=== PATIENT | male | born 1940 | race Caucasian/White ===

== ENCOUNTER 2017-07-13 11:30 | Outpatient (RCR) | payer MEDICARE, SELFPAY | END 2017-07-13 12:30 | LOC: CAR 11:30 | PROVIDERS: Family Provider Internal Medicine; PCP Internal Medicine; Visit Provider Internal Medicine Cardiovascular Disease | DX: Z95.2 Presence of prosthetic heart valve (principal) | CPT/HCPCS: 93798 ==

== ENCOUNTER → 2017-07-31 12:40 | Outpatient (CLI) | payer MEDICARE, SELFPAY ==
[2017-07-18 11:37] VITALS: BMI 28.7
[2017-07-31 13:24] LABS: Add Manual Diff / Slide Review NO; Basophils Percent Auto 0.2 % (0-2); Eosinophils Percent Auto 0.2 % (2-4); Hematocrit 34.2 % (41-53); Hemoglobin 11.4 g/dL (13.5-17.5); Lymphocytes Percent Auto 2.6 % (25-40); Mean Corpuscular HGB Conc 33.2 % (30-36); Mean Corpuscular Hemoglobin 33.4 PG (26-34); Mean Corpuscular Volume 100.9 fL (80-100); Monocytes Percent Auto 4.5 % (3-14); Neutrophils Absolute Auto 11000 /uL (3000-5900); Neutrophils Percent Auto 92.5 % (50-75); Platelet Count 188 X10^3/uL (150-400); Red Cell Distribution Width 15.7 % (11.6-14.8); White Blood Cell Count 11.9 X10^3/uL (4.5-11.0)
[2017-07-31 14:06] LABS: Alanine Aminotransferase 26 IU/L (21-72); Albumin Globulin Ratio 1.7 (1.0-2.8); Alkaline Phosphatase 56 U/L (38-126); Aspartate Aminotransferase 17 IU/L (17-59); BUN Creatinine Ratio 19.2 (6-22); Bilirubin Total 0.9 mg/dL (0.2-1.3); Blood Urea Nitrogen 25 mg/dL (9-20); Carbon Dioxide 27 mmol/L (22-32); Chloride 97 mmol/L (98-107); Estimated Glomerular Filt Rate 53.4 mL/min (>60); Globulin 2.4 g/dL (1.7-4.1); Glucose 95 mg/dL (80-110); HEMOLYSIS < 15 (0-50); Potassium 4.1 mmol/L (3.4-5.1); Sodium 138 mmol/L (137-145); Total Protein 6.4 g/dL (6.3-8.2)
== END ==
PROVIDERS: PCP Internal Medicine; Visit Provider Internal Medicine Critical Care Medicine
DX: J84.9 Interstitial pulmonary disease, unspecified (principal)
CPT/HCPCS: 36415; 80053; 85025

== ENCOUNTER → 2017-08-28 12:49 | Outpatient (CLI) | payer MEDICARE, SELFPAY ==
[2017-07-18 11:37] VITALS: BMI 28.7
[2017-08-28 13:18] LABS: Add Manual Diff / Slide Review NO; Basophils Percent Auto 0.2 % (0-2); Eosinophils Percent Auto 0.3 % (2-4); Hematocrit 36.5 % (41-53); Hemoglobin 11.9 g/dL (13.5-17.5); Lymphocytes Percent Auto 2.6 % (25-40); Mean Corpuscular HGB Conc 32.6 % (30-36); Mean Corpuscular Hemoglobin 33.1 PG (26-34); Mean Corpuscular Volume 101.6 fL (80-100); Monocytes Percent Auto 4.7 % (3-14); Neutrophils Absolute Auto 12100 /uL (3000-5900); Neutrophils Percent Auto 92.2 % (50-75); Platelet Count 197 X10^3/uL (150-400); Red Blood Cell Count 3.59 X10^6/uL (4.5-5.9); Red Cell Distribution Width 14.5 % (11.6-14.8); White Blood Cell Count 13.2 X10^3/uL (4.5-11.0)
== END ==
PROVIDERS: PCP Internal Medicine; Visit Provider Internal Medicine Critical Care Medicine
DX: J84.9 Interstitial pulmonary disease, unspecified (principal)
CPT/HCPCS: 36415; 85025

== ENCOUNTER → 2017-10-02 12:51 | Outpatient (CLI) | payer MEDICARE, SELFPAY ==
[2017-07-18 11:37] VITALS: BMI 28.7
[2017-10-02 14:54] LABS: Add Manual Diff / Slide Review NO; Basophils Percent Auto 0.1 % (0-2); Eosinophils Percent Auto 0.2 % (2-4); Hematocrit 37.1 % (41-53); Hemoglobin 12.2 g/dL (13.5-17.5); Lymphocytes Percent Auto 2.3 % (25-40); Mean Corpuscular HGB Conc 32.8 % (30-36); Mean Corpuscular Hemoglobin 32.7 PG (26-34); Mean Corpuscular Volume 99.6 fL (80-100); Monocytes Percent Auto 3.2 % (3-14); Neutrophils Absolute Auto 10900 /uL (3000-5900); Neutrophils Percent Auto 94.2 % (50-75); Platelet Count 191 X10^3/uL (150-400); Red Blood Cell Count 3.72 X10^6/uL (4.5-5.9); Red Cell Distribution Width 14.1 % (11.6-14.8); White Blood Cell Count 11.6 X10^3/uL (4.5-11.0)
== END ==
PROVIDERS: Family Provider Internal Medicine; PCP Internal Medicine
DX: J84.9 Interstitial pulmonary disease, unspecified (principal)
CPT/HCPCS: 36415; 85025

== ENCOUNTER → 2017-10-31 10:05 | Outpatient (CLI) | payer MEDICARE, SELFPAY ==
[2017-07-18 11:37] VITALS: BMI 28.7
[2017-10-31 10:53] LABS: Add Manual Diff / Slide Review NO; Basophils Percent Auto 0.3 % (0-2); Eosinophils Percent Auto 0.6 % (2-4); Hematocrit 35.9 % (41-53); Lymphocytes Percent Auto 5.1 % (25-40); Mean Corpuscular HGB Conc 33.4 % (30-36); Mean Corpuscular Hemoglobin 33.1 PG (26-34); Mean Corpuscular Volume 99.2 fL (80-100); Monocytes Percent Auto 7.8 % (3-14); Neutrophils Absolute Auto 9100 /uL (3000-5900); Neutrophils Percent Auto 86.2 % (50-75); Platelet Count 194 X10^3/uL (150-400); Red Blood Cell Count 3.62 X10^6/uL (4.5-5.9); Red Cell Distribution Width 14.5 % (11.6-14.8); White Blood Cell Count 10.5 X10^3/uL (4.5-11.0)
[2017-10-31 11:39] LABS: Alanine Aminotransferase 20 IU/L (21-72); Albumin 3.9 g/dL (3.5-5.0); Albumin Globulin Ratio 1.8 (1.0-2.8); Alkaline Phosphatase 50 U/L (38-126); Aspartate Aminotransferase 17 IU/L (17-59); BUN Creatinine Ratio 18.2 (6-22); Bilirubin Total 0.7 mg/dL (0.2-1.3); Blood Urea Nitrogen 31 mg/dL (9-20); Calcium 9.7 mg/dL (8.4-10.2); Carbon Dioxide 32 mmol/L (22-32); Chloride 102 mmol/L (98-107); Estimated Glomerular Filt Rate 39.2 mL/min (>60); Globulin 2.2 g/dL (1.7-4.1); Glucose 96 mg/dL (80-110); HEMOLYSIS < 15 (0-50); Potassium 4.4 mmol/L (3.4-5.1); Sodium 145 mmol/L (137-145); Total Protein 6.1 g/dL (6.3-8.2)
== END ==
PROVIDERS: Family Provider Internal Medicine; PCP Internal Medicine; Visit Provider Internal Medicine Critical Care Medicine
DX: J84.9 Interstitial pulmonary disease, unspecified (principal)
CPT/HCPCS: 36415; 80053; 85025

== ENCOUNTER → 2018-01-02 12:46 | Outpatient (CLI) | payer MEDICARE, SELFPAY ==
[2017-07-18 11:37] VITALS: BMI 28.7
[2018-01-02 14:30] LABS: Add Manual Diff / Slide Review NO; Basophils Percent Auto 0.4 % (0-2); Eosinophils Percent Auto 0.5 % (2-4); Hematocrit 37.8 % (41-53); Hemoglobin 12.3 g/dL (13.5-17.5); Lymphocytes Percent Auto 4.5 % (25-40); Mean Corpuscular HGB Conc 32.5 % (30-36); Mean Corpuscular Hemoglobin 32.3 PG (26-34); Mean Corpuscular Volume 99.4 fL (80-100); Monocytes Percent Auto 5.1 % (3-14); Neutrophils Absolute Auto 12000 /uL (3000-5900); Neutrophils Percent Auto 89.5 % (50-75); Platelet Count 192 X10^3/uL (150-400); Red Cell Distribution Width 14.8 % (11.6-14.8); White Blood Cell Count 13.4 X10^3/uL (4.5-11.0)
== END ==
PROVIDERS: Family Provider Internal Medicine; PCP Internal Medicine; Visit Provider Internal Medicine Critical Care Medicine
DX: J84.9 Interstitial pulmonary disease, unspecified (principal)
CPT/HCPCS: 36415; 85025

== ENCOUNTER → 2018-02-12 12:59 | Outpatient (CLI) | payer MEDICARE, SELFPAY ==
[2017-07-18 11:37] VITALS: BMI 28.7
[2018-02-12 13:26] LABS: Add Manual Diff / Slide Review NO; Basophils Percent Auto 0.3 % (0-2); Eosinophils Percent Auto 0.3 % (2-4); Hematocrit 37.5 % (41-53); Lymphocytes Percent Auto 5.3 % (25-40); Mean Corpuscular HGB Conc 32.1 % (30-36); Mean Corpuscular Hemoglobin 31.5 PG (26-34); Mean Corpuscular Volume 97.9 fL (80-100); Monocytes Percent Auto 3.2 % (3-14); Neutrophils Absolute Auto 10500 /uL (1500-7000); Neutrophils Percent Auto 90.9 % (50-75); Platelet Count 194 X10^3/uL (150-400); Red Blood Cell Count 3.83 X10^6/uL (4.5-5.9); Red Cell Distribution Width 14.8 % (11.6-14.8); White Blood Cell Count 11.6 X10^3/uL (4.5-11.0)
[2018-02-12 13:41] LABS: Alanine Aminotransferase 19 IU/L (21-72); Albumin 4.1 g/dL (3.5-5.0); Albumin Globulin Ratio 1.6 (1.0-2.8); Alkaline Phosphatase 48 U/L (38-126); Aspartate Aminotransferase 16 IU/L (17-59); BUN Creatinine Ratio 17.9 (6-22); Bilirubin Total 0.7 mg/dL (0.2-1.3); Blood Urea Nitrogen 25 mg/dL (9-20); Calcium 9.5 mg/dL (8.4-10.2); Carbon Dioxide 29 mmol/L (22-32); Chloride 101 mmol/L (98-107); Globulin 2.5 g/dL (1.7-4.1); Glucose 128 mg/dL (80-110); HEMOLYSIS < 15 (0-50); Potassium 3.9 mmol/L (3.4-5.1); Sodium 145 mmol/L (137-145); Total Protein 6.6 g/dL (6.3-8.2)
== END ==
PROVIDERS: PCP Internal Medicine; Visit Provider Internal Medicine Critical Care Medicine
DX: J84.9 Interstitial pulmonary disease, unspecified (principal)
CPT/HCPCS: 36415; 80053; 85025

== ENCOUNTER → 2018-02-26 14:31 | Outpatient (CLI) | payer MEDICARE, SELFPAY ==
[2017-07-18 11:37] VITALS: BMI 28.7
[2018-02-26 15:27] LABS: B Type Natriuretic Peptide 213 (<100)
[2018-02-26 15:51] LABS: BUN Creatinine Ratio 17.9 (6-22); Blood Urea Nitrogen 25 mg/dL (9-20); Calcium 10.1 mg/dL (8.4-10.2); Carbon Dioxide 28 mmol/L (22-32); Chloride 101 mmol/L (98-107); Glucose 125 mg/dL (80-110); HEMOLYSIS < 15 (0-50); Potassium 4.7 mmol/L (3.4-5.1); Sodium 141 mmol/L (137-145)
== END ==
PROVIDERS: Family Provider Internal Medicine; PCP Internal Medicine; Visit Provider Internal Medicine
DX: B02.23 Postherpetic polyneuropathy (principal); J84.10 Pulmonary fibrosis, unspecified; R06.09 Other forms of dyspnea
CPT/HCPCS: 36415; 80048; 83880

== ENCOUNTER → 2018-03-09 08:29 | Outpatient (CLI) | payer MEDICARE, SELFPAY ==
[2017-07-18 11:37] VITALS: BMI 28.7
--- NOTE | 2018-03-09 | DI.CT.S_ITS ---
PROCEDURE: CT CHEST HIGH RESOLUTION INDICATIONS: History of interstitial lung disease with worsening hypoxia. TECHNIQUE: Noncontrast 1.0 and 5.0 mm thick contiguous axial sections from the pulmonary apex to the posterior costophrenic angles, with 7 mm thick coronal and sagittal MIP reformats. 1 mm thick dynamic expiratory images acquired through the upper, mid, and lower lungs. 1.0 mm thick axial sections acquired from the americo to the posterior costophrenic angles in the prone end-inspiration position. For radiation dose reduction, the following was used: automated exposure control, adjustment of mA and/or kV according to patient size. COMPARISON: [facility], CT, CHEST HIGH RESOLUTION, 05/18/2015, 8:45. FINDINGS: Image quality: Excellent. Lungs: There is bilateral septal thickening with a subpleural predominance. Traction bronchiectasis and honeycombing are also redemonstrated. The findings again demonstrate a basilar predominance. There is mild interval progression compared to the prior study. The indistinct ground glass opacities seen on the prior study are decreased in prominence on the current study. No acute consolidation. Dynamic images demonstrate no evidence of air trapping. Pleura: No pleural effusions or pneumothorax. There are multiple small peripheral foci of pleural calcifications without confluent pleural plaques. Mediastinum: There is a left chest wall AICD with a single lead extending into the right ventricle. Heart size is at the upper limits of normal. A prosthetic aortic valve is redemonstrated. No pericardial effusion. Thoracic aorta and central pulmonary arteries are normal in size. There is mild fluid distention of the mid and distal esophagus. Bones and chest wall: No suspicious bony lesions. No vertebral body compression fractures. Abdomen: Visualized upper abdomen demonstrates surgical absence of the bladder. IMPRESSION: 1. Chronic interstitial lung disease redemonstrated with bilateral subpleural septal thickening, traction bronchiectasis, and honeycombing with a basilar predominance. Findings are again compatible with a UIP pattern and demonstrate interval progression compared to the prior study. The differential etiologies for this pattern is broad and includes IPF, connective tissue disease, asbestosis, hypersensitivity pneumonitis, and drug reaction among other etiologies. 2. Mild distention of the mid and distal esophagus redemonstrated suggestive of a patulous esophagus. The findings likely reflect age related changes. Although the differential includes scleroderma, this is considered less likely given the mild degree of dilatation. 3. Small foci of pleural calcifications demonstrated bilaterally. The findings may represent sequelae of asbestos exposure although no typical confluent pleural plaques are noted. Differential includes sequelae of prior infection or inflammatory changes. Recommend correlation with clinical history. Dictated by: Gil Olguin M.D. on 03/09/2018 at 10:42 Approved by: Gil Olguin M.D. on 03/09/2018 at 11:12
== END ==
PROVIDERS: Family Provider Internal Medicine; PCP Internal Medicine; Visit Provider Internal Medicine Critical Care Medicine
DX: J84.9 Interstitial pulmonary disease, unspecified (principal); J94.8 Other specified pleural conditions; R09.02 Hypoxemia
CPT/HCPCS: 71250

== ENCOUNTER → 2018-05-09 11:28 | Outpatient (CLI) | payer MEDICARE, SELFPAY ==
[2017-07-18 11:37] VITALS: BMI 28.7
[2018-05-09 13:36] LABS: Add Manual Diff / Slide Review NO; Basophils Absolute Auto 0 /uL (0-100); Basophils Percent Auto 0.2 % (0-2); Eosinophils Absolute Auto 0 /uL (0-450); Eosinophils Percent Auto 0.3 % (2-4); Hematocrit 34.9 % (41-53); Hemoglobin 11.3 g/dL (13.5-17.5); Lymphocytes Absolute Auto 400 /uL (1100-4500); Lymphocytes Percent Auto 3.2 % (25-40); Mean Corpuscular HGB Conc 32.4 % (30-36); Mean Corpuscular Hemoglobin 31.7 PG (26-34); Mean Corpuscular Volume 97.7 fL (80-100); Monocytes Absolute Auto 500 /uL (0-900); Neutrophils Absolute Auto 11400 /uL (1500-7000); Neutrophils Percent Auto 92.3 % (50-75); Platelet Count 202 X10^3/uL (150-400); Red Blood Cell Count 3.57 X10^6/uL (4.5-5.9); White Blood Cell Count 12.3 X10^3/uL (4.5-11.0)
[2018-05-09 13:40] LABS: Alanine Aminotransferase 23 IU/L (21-72); Albumin Globulin Ratio 1.7 (1.0-2.8); Alkaline Phosphatase 45 U/L (38-126); Aspartate Aminotransferase 18 IU/L (17-59); BUN Creatinine Ratio 19.3 (6-22); Bilirubin Total 0.8 mg/dL (0.2-1.3); Blood Urea Nitrogen 27 mg/dL (9-20); Calcium 9.7 mg/dL (8.4-10.2); Carbon Dioxide 31 mmol/L (22-32); Chloride 100 mmol/L (98-107); Estimated Glomerular Filt Rate 48.9 mL/min (>60); Globulin 2.4 g/dL (1.7-4.1); Glucose 102 mg/dL (80-110); HEMOLYSIS < 15 (0-50); Potassium 4.2 mmol/L (3.4-5.1); Sodium 141 mmol/L (137-145); Total Protein 6.4 g/dL (6.3-8.2)
== END ==
PROVIDERS: Family Provider Internal Medicine; PCP Internal Medicine; Visit Provider Internal Medicine Critical Care Medicine
DX: J84.9 Interstitial pulmonary disease, unspecified (principal)
CPT/HCPCS: 36415; 80053; 85025

== ENCOUNTER → 2018-06-14 11:18 | Outpatient (CLI) | payer MEDICARE, SELFPAY ==
[2017-07-18 11:37] VITALS: BMI 28.7
[2018-06-14 12:00] LABS: Add Manual Diff / Slide Review NO; Basophils Absolute Auto 100 /uL (0-100); Basophils Percent Auto 0.5 % (0-2); Eosinophils Absolute Auto 100 /uL (0-450); Eosinophils Percent Auto 0.6 % (2-4); Hematocrit 35.1 % (41-53); Hemoglobin 11.1 g/dL (13.5-17.5); Lymphocytes Absolute Auto 400 /uL (1100-4500); Lymphocytes Percent Auto 3.3 % (25-40); Mean Corpuscular HGB Conc 31.7 % (30-36); Mean Corpuscular Hemoglobin 31.5 PG (26-34); Mean Corpuscular Volume 99.6 fL (80-100); Monocytes Absolute Auto 800 /uL (0-900); Monocytes Percent Auto 6.3 % (3-14); Neutrophils Absolute Auto 11700 /uL (1500-7000); Neutrophils Percent Auto 89.3 % (50-75); Red Blood Cell Count 3.53 X10^6/uL (4.5-5.9); Red Cell Distribution Width 15.3 % (11.6-14.8); White Blood Cell Count 13.1 X10^3/uL (4.5-11.0)
[2018-06-14 12:25] LABS: Alanine Aminotransferase 13 IU/L (21-72); Albumin 3.7 g/dL (3.5-5.0); Albumin Globulin Ratio 1.7 (1.0-2.8); Alkaline Phosphatase 41 U/L (38-126); Aspartate Aminotransferase 22 IU/L (17-59); BUN Creatinine Ratio 21.7 (6-22); Bilirubin Total 0.7 mg/dL (0.2-1.3); Blood Urea Nitrogen 26 mg/dL (9-20); Calcium 9.6 mg/dL (8.4-10.2); Carbon Dioxide 29 mmol/L (22-32); Chloride 101 mmol/L (98-107); Estimated Glomerular Filt Rate 58.4 mL/min (>60); Globulin 2.2 g/dL (1.7-4.1); Glucose 82 mg/dL (80-110); HEMOLYSIS 15 (0-50); Potassium 3.9 mmol/L (3.4-5.1); Sodium 139 mmol/L (137-145); Total Protein 5.9 g/dL (6.3-8.2)
[2018-06-14 12:28] LABS: Platelet Count 169 X10^3/uL (150-400)
== END ==
PROVIDERS: Family Provider Internal Medicine; PCP Internal Medicine; Visit Provider Internal Medicine Critical Care Medicine
DX: J84.9 Interstitial pulmonary disease, unspecified (principal)
CPT/HCPCS: 36415; 80053; 85025

== ENCOUNTER → 2018-07-19 13:23 | Outpatient (CLI) | payer MEDICARE, SELFPAY ==
[2017-07-18 11:37] VITALS: BMI 28.7
[2018-07-19 13:47] LABS: Add Manual Diff / Slide Review NO; Basophils Absolute Auto 0 /uL (0-100); Basophils Percent Auto 0.2 % (0-2); Eosinophils Absolute Auto 0 /uL (0-450); Eosinophils Percent Auto 0.2 % (2-4); Hematocrit 36.7 % (41-53); Hemoglobin 11.5 g/dL (13.5-17.5); Lymphocytes Absolute Auto 500 /uL (1100-4500); Lymphocytes Percent Auto 3.6 % (25-40); Mean Corpuscular HGB Conc 31.4 % (30-36); Mean Corpuscular Hemoglobin 31.6 PG (26-34); Mean Corpuscular Volume 100.6 fL (80-100); Monocytes Absolute Auto 500 /uL (0-900); Neutrophils Absolute Auto 12300 /uL (1500-7000); Platelet Count 212 X10^3/uL (150-400); Red Blood Cell Count 3.65 X10^6/uL (4.5-5.9); Red Cell Distribution Width 15.2 % (11.6-14.8); White Blood Cell Count 13.3 X10^3/uL (4.5-11.0)
[2018-07-19 14:54] LABS: Alanine Aminotransferase 12 IU/L (21-72); Albumin Globulin Ratio 1.8 (1.0-2.8); Alkaline Phosphatase 55 U/L (38-126); Aspartate Aminotransferase 16 IU/L (17-59); BUN Creatinine Ratio 17.5 (6-22); Bilirubin Total 0.7 mg/dL (0.2-1.3); Blood Urea Nitrogen 21 mg/dL (9-20); Calcium 9.8 mg/dL (8.4-10.2); Carbon Dioxide 31 mmol/L (22-32); Chloride 100 mmol/L (98-107); Estimated Glomerular Filt Rate 58.4 mL/min (>60); Globulin 2.2 g/dL (1.7-4.1); Glucose 85 mg/dL (80-110); HEMOLYSIS < 15 (0-50); Potassium 4.5 mmol/L (3.4-5.1); Sodium 140 mmol/L (137-145); Total Protein 6.2 g/dL (6.3-8.2)
== END ==
PROVIDERS: PCP Internal Medicine; Visit Provider Internal Medicine Critical Care Medicine
DX: J84.9 Interstitial pulmonary disease, unspecified (principal)
CPT/HCPCS: 36415; 80053; 85025

== ENCOUNTER → 2018-08-20 13:33 | Outpatient (CLI) | payer MEDICARE, SELFPAY ==
[2017-07-18 11:37] VITALS: BMI 28.7
[2018-08-20 14:53] LABS: Add Manual Diff / Slide Review NO; Basophils Absolute Auto 0 /uL (0-100); Basophils Percent Auto 0.1 % (0-2); Eosinophils Absolute Auto 0 /uL (0-450); Hematocrit 35.8 % (41-53); Hemoglobin 11.7 g/dL (13.5-17.5); Lymphocytes Absolute Auto 400 /uL (1100-4500); Lymphocytes Percent Auto 3.3 % (25-40); Mean Corpuscular HGB Conc 32.8 % (30-36); Mean Corpuscular Hemoglobin 32.6 PG (26-34); Mean Corpuscular Volume 99.5 fL (80-100); Monocytes Absolute Auto 400 /uL (0-900); Monocytes Percent Auto 3.2 % (3-14); Neutrophils Absolute Auto 12600 /uL (1500-7000); Neutrophils Percent Auto 93.4 % (50-75); Platelet Count 217 X10^3/uL (150-400); Red Cell Distribution Width 15.8 % (11.6-14.8); White Blood Cell Count 13.5 X10^3/uL (4.5-11.0)
[2018-08-20 15:21] LABS: Alanine Aminotransferase 9 IU/L (21-72); Albumin Globulin Ratio 1.7 (1.0-2.8); Alkaline Phosphatase 54 U/L (38-126); Aspartate Aminotransferase 17 IU/L (17-59); BUN Creatinine Ratio 21.5 (6-22); Bilirubin Total 0.7 mg/dL (0.2-1.3); Blood Urea Nitrogen 28 mg/dL (9-20); Calcium 9.8 mg/dL (8.4-10.2); Carbon Dioxide 29 mmol/L (22-32); Chloride 104 mmol/L (98-107); Estimated Glomerular Filt Rate 53.3 mL/min (>60); Globulin 2.3 g/dL (1.7-4.1); Glucose 105 mg/dL (80-110); HEMOLYSIS < 15 (0-50); Sodium 143 mmol/L (137-145); Total Protein 6.3 g/dL (6.3-8.2)
== END ==
PROVIDERS: PCP Internal Medicine; Visit Provider Internal Medicine Critical Care Medicine
DX: J84.9 Interstitial pulmonary disease, unspecified (principal)
CPT/HCPCS: 36415; 80053; 85025

== ENCOUNTER → 2018-11-05 12:50 | Outpatient (CLI) | payer MEDICARE, SELFPAY ==
[2017-07-18 11:37] VITALS: BMI 28.7
[2018-11-05 13:52] LABS: Add Manual Diff / Slide Review NO; Basophils Absolute Auto 0 /uL (0-100); Basophils Percent Auto 0.2 % (0-2); Eosinophils Absolute Auto 100 /uL (0-450); Eosinophils Percent Auto 0.8 % (2-4); Hematocrit 35.7 % (41-53); Hemoglobin 11.6 g/dL (13.5-17.5); Lymphocytes Absolute Auto 700 /uL (1100-4500); Lymphocytes Percent Auto 5.6 % (25-40); Mean Corpuscular HGB Conc 32.4 % (30-36); Mean Corpuscular Hemoglobin 32.7 PG (26-34); Mean Corpuscular Volume 100.8 fL (80-100); Monocytes Absolute Auto 900 /uL (0-900); Monocytes Percent Auto 7.3 % (3-14); Neutrophils Absolute Auto 10700 /uL (1500-7000); Neutrophils Percent Auto 86.1 % (50-75); Platelet Count 201 X10^3/uL (150-400); Red Blood Cell Count 3.54 X10^6/uL (4.5-5.9); Red Cell Distribution Width 15.1 % (11.6-14.8); White Blood Cell Count 12.5 X10^3/uL (4.5-11.0)
[2018-11-05 14:51] LABS: Alanine Aminotransferase 18 IU/L (21-72); Albumin 3.8 g/dL (3.5-5.0); Albumin Globulin Ratio 1.7 (1.0-2.8); Alkaline Phosphatase 46 U/L (38-126); Aspartate Aminotransferase 17 IU/L (17-59); BUN Creatinine Ratio 17.7 (6-22); Bilirubin Total 0.7 mg/dL (0.2-1.3); Blood Urea Nitrogen 23 mg/dL (9-20); Carbon Dioxide 28 mmol/L (22-32); Chloride 103 mmol/L (98-107); Estimated Glomerular Filt Rate 53.3 mL/min (>60); Globulin 2.2 g/dL (1.7-4.1); Glucose 92 mg/dL (80-110); HEMOLYSIS < 15 (0-50); Potassium 4.1 mmol/L (3.4-5.1); Sodium 142 mmol/L (137-145)
== END ==
PROVIDERS: PCP Internal Medicine; Visit Provider Internal Medicine Critical Care Medicine
DX: J84.9 Interstitial pulmonary disease, unspecified (principal)
CPT/HCPCS: 36415; 80053; 85025

== ENCOUNTER → 2019-01-08 10:53 | Outpatient (CLI) | payer MEDICARE, SELFPAY ==
[2017-07-18 11:37] VITALS: BMI 28.7
[2019-01-08 11:49] LABS: Add Manual Diff / Slide Review NO; Basophils Absolute Auto 0 /uL (0-100); Basophils Percent Auto 0.2 % (0-2); Eosinophils Absolute Auto 100 /uL (0-450); Eosinophils Percent Auto 0.5 % (2-4); Hematocrit 36.1 % (41-53); Hemoglobin 11.8 g/dL (13.5-17.5); Lymphocytes Absolute Auto 600 /uL (1100-4500); Lymphocytes Percent Auto 3.9 % (25-40); Mean Corpuscular HGB Conc 32.7 % (30-36); Mean Corpuscular Hemoglobin 32.4 PG (26-34); Mean Corpuscular Volume 99.2 fL (80-100); Monocytes Absolute Auto 800 /uL (0-900); Monocytes Percent Auto 5.3 % (3-14); Neutrophils Absolute Auto 13600 /uL (1500-7000); Neutrophils Percent Auto 90.1 % (50-75); Platelet Count 204 X10^3/uL (150-400); Red Blood Cell Count 3.64 X10^6/uL (4.5-5.9); Red Cell Distribution Width 15.3 % (11.6-14.8); White Blood Cell Count 15.1 X10^3/uL (4.5-11.0)
[2019-01-08 12:21] LABS: Alanine Aminotransferase 13 IU/L (<50); Albumin Globulin Ratio 1.9 (1.0-2.8); Alkaline Phosphatase 44 U/L (38-126); Aspartate Aminotransferase 19 IU/L (17-59); Bilirubin Total 0.8 mg/dL (0.2-1.3); Blood Urea Nitrogen 24 mg/dL (9-20); Calcium 9.9 mg/dL (8.4-10.2); Carbon Dioxide 29 mmol/L (22-32); Chloride 100 mmol/L (98-107); Estimated Glomerular Filt Rate 45.1 mL/min (>60); Globulin 2.1 g/dL (1.7-4.1); Glucose 81 mg/dL (80-110); HEMOLYSIS < 15 (0-50); Potassium 4.1 mmol/L (3.4-5.1); Sodium 139 mmol/L (137-145); Total Protein 6.1 g/dL (6.3-8.2)
== END ==
PROVIDERS: PCP Internal Medicine; Visit Provider Internal Medicine Critical Care Medicine
DX: J84.9 Interstitial pulmonary disease, unspecified (principal)
CPT/HCPCS: 36415; 80053; 85025

== ENCOUNTER → 2019-02-02 11:13 | Outpatient (CLI) | payer MEDICARE, SELFPAY ==
[2017-07-18 11:37] VITALS: BMI 28.7
[2019-02-02 13:05] LABS: BUN Creatinine Ratio 15.3 (6-22); Blood Urea Nitrogen 23 mg/dL (9-20); Calcium 10.1 mg/dL (8.4-10.2); Carbon Dioxide 30 mmol/L (22-32); Chloride 102 mmol/L (98-107); Estimated Glomerular Filt Rate 45.1 mL/min (>60); Glucose 95 mg/dL (80-110); HEMOLYSIS < 15 (0-50); Magnesium 1.8 mg/dL (1.6-2.3); Potassium 3.4 mmol/L (3.4-5.1); Sodium 142 mmol/L (137-145)
== END ==
PROVIDERS: Family Provider Internal Medicine; PCP Internal Medicine; Visit Provider Internal Medicine Cardiovascular Disease
DX: I47.2 Ventricular tachycardia (principal)
CPT/HCPCS: 36415; 80048; 83735

== ENCOUNTER → 2019-02-05 12:33 | Outpatient (CLI) | payer MEDICARE, SELFPAY ==
[2017-07-18 11:37] VITALS: BMI 28.7
--- NOTE | 2019-02-05 13:07 | DI.CT.S_ITS ---
PROCEDURE: CT CHEST HIGH RESOLUTION INDICATIONS: Interstitial pulmonary disease, unspecified TECHNIQUE: Noncontrast 1.0 and 5.0 mm thick contiguous axial sections from the pulmonary apex to the posterior costophrenic angles, with 7 mm thick coronal and sagittal MIP reformats. 1 mm thick dynamic expiratory images acquired through the upper, mid, and lower lungs. 1.0 mm thick axial sections acquired from the americo to the posterior costophrenic angles in the prone end-inspiration position. For radiation dose reduction, the following was used: automated exposure control, adjustment of mA and/or kV according to patient size. COMPARISON: [facility], CT, CT CHEST HIGH RESOLUTION, 06/06/2016, 9:46. Located Within [facility], CR, CHEST 1 VIEW, 11/14/2016, 19:16. Located Within [facility], CT, PE STUDY (CTA CHEST), 02/22/2017, 14:55. Located Within [facility], CT, CT CHEST HIGH RESOLUTION, 03/09/2018, 8:28. Located Within [facility], CT, CHEST HIGH RESOLUTION, 05/18/2015, 8:45. FINDINGS: Image quality: Excellent. Lungs: The pattern of alveolitis and pulmonary fibrosis previously identified to have mildly worsened on the most recent comparison study, 03/09/18, does not appear to have significantly changed on the current examination, approximately 11 months later. Again noted is the interstitial septal thickening with associated traction mild bronchiectasis, and a pulmonary fibrotic pattern stable over the lung bases. Pleura: No pleural effusions or pneumothorax. Mediastinum: Heart size is normal. No pericardial effusion. Thoracic aorta and central pulmonary arteries are normal in size. Esophagus is normal in caliber. Stable appearance of implanted cardiac pacemaking/defibrillation device and lead. Bones and chest wall: No suspicious bony lesions. No vertebral body compression fractures. Abdomen: Visualized upper abdominal solid organs and bowel loops appear normal. 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 The study from 11 months ago had shown mild progression from earlier high-resolution chest CT scanning but the current examination shows no progression. Stable positioning of pacemaki/defibrillation device and lead. Dictated by: Adria Moser M.D. on 02/06/2019 at 9:21 Approved by: Adria Moser M.D. on 02/06/2019 at 9:26
== END ==
PROVIDERS: Family Provider Internal Medicine; PCP Internal Medicine; Visit Provider Internal Medicine Critical Care Medicine
DX: J84.9 Interstitial pulmonary disease, unspecified (principal); Z95.810 Presence of automatic (implantable) cardiac defibrillator
CPT/HCPCS: 71250

== ENCOUNTER → 2019-03-28 13:13 | Outpatient (CLI) | payer MEDICARE, SELFPAY ==
[2017-07-18 11:37] VITALS: BMI 28.7
[2019-03-28 14:20] LABS: Add Manual Diff / Slide Review NO; Basophils Absolute Auto 0 /uL (0-100); Eosinophils Absolute Auto 0 /uL (0-450); Eosinophils Percent Auto 0.1 % (2-4); Hematocrit 34.7 % (41-53); Lymphocytes Absolute Auto 200 /uL (1100-4500); Lymphocytes Percent Auto 1.8 % (25-40); Mean Corpuscular HGB Conc 31.8 % (30-36); Mean Corpuscular Hemoglobin 32.7 PG (26-34); Mean Corpuscular Volume 102.7 fL (80-100); Monocytes Absolute Auto 400 /uL (0-900); Monocytes Percent Auto 3.1 % (3-14); Neutrophils Absolute Auto 13200 /uL (1500-7000); Platelet Count 229 X10^3/uL (150-400); Red Blood Cell Count 3.38 X10^6/uL (4.5-5.9); Red Cell Distribution Width 16.7 % (11.6-14.8); White Blood Cell Count 13.9 X10^3/uL (4.5-11.0)
[2019-03-28 15:53] LABS: Alanine Aminotransferase 12 IU/L (<50); Albumin 3.6 g/dL (3.5-5.0); Albumin Globulin Ratio 1.4 (1.0-2.8); Alkaline Phosphatase 51 U/L (38-126); Aspartate Aminotransferase 18 IU/L (17-59); BUN Creatinine Ratio 18.6 (6-22); Bilirubin Total 0.8 mg/dL (0.2-1.3); Blood Urea Nitrogen 26 mg/dL (9-20); Calcium 9.6 mg/dL (8.4-10.2); Carbon Dioxide 29 mmol/L (22-32); Chloride 98 mmol/L (98-107); Estimated Glomerular Filt Rate 48.9 mL/min (>60); Globulin 2.5 g/dL (1.7-4.1); Glucose 101 mg/dL (80-110); HEMOLYSIS < 15 (0-50); Magnesium 2.3 mg/dL (1.6-2.3); Potassium 4.2 mmol/L (3.4-5.1); Sodium 136 mmol/L (137-145); Total Protein 6.1 g/dL (6.3-8.2)
== END ==
PROVIDERS: Family Provider Internal Medicine Cardiovascular Disease; PCP Internal Medicine; Visit Provider Internal Medicine Critical Care Medicine
DX: J84.9 Interstitial pulmonary disease, unspecified (principal); I47.2 Ventricular tachycardia
CPT/HCPCS: 36415; 80053; 83735; 85025

== ENCOUNTER 2019-09-16 12:09 | Inpatient (IN) | payer MEDICARE, SELFPAY ==
[2017-07-18 11:37] VITALS: BMI 28.7
[2019-09-16] VITALS (22 sets, daily range): BP systolic 102–134; BP diastolic 55–72; PULSE 74–112; RESP 16–42; TEMP 36.3–36.7; O2SAT 92–100; BMI 31.8
--- NOTE | 2019-09-16 12:12 | DI.RAD.S_ITS ---
PROCEDURE: XR CHEST 2V INDICATIONS: shortness of breath TECHNIQUE: 2 views of the chest were acquired. COMPARISON: [facility], CR, XR CHEST 2 VIEWS, 07/03/2017, 15:41. FINDINGS: Surgical changes and devices: A left-sided cardiac pacer/defibrillator is noted. A cardiac valvular stent is noted. Lungs and pleura: Peripheral interstitial prominence is identified within the lungs, which is similar to the previous study. There is no new area of consolidation evident. Mediastinum: Mediastinal contours are normal. Heart size is enlarged. There is aortic atherosclerosis. Bones and chest wall: No suspicious bony abnormalities. Soft tissues appear unremarkable. IMPRESSION: Chronic interstitial changes within the lungs are similar to the prior study. No definitive acute cardiopulmonary process is evident. Dictated by: Booker Pepper M.D. on 09/16/2019 at 12:31 Approved by: Booker Pepper M.D. on 09/16/2019 at 12:32
[2019-09-16 12:27] LABS: Add Manual Diff / Slide Review NO; Basophils Absolute Auto 0 /uL (0-100); Eosinophils Absolute Auto 0 /uL (0-450); Eosinophils Percent Auto 0.2 % (2-4); Hematocrit 36.9 % (41-53); Hemoglobin 11.6 g/dL (13.5-17.5); Lymphocytes Absolute Auto 300 /uL (1100-4500); Lymphocytes Percent Auto 2.5 % (25-40); Mean Corpuscular HGB Conc 31.4 % (30-36); Mean Corpuscular Hemoglobin 31.8 PG (26-34); Mean Corpuscular Volume 101.2 fL (80-100); Monocytes Absolute Auto 400 /uL (0-900); Monocytes Percent Auto 3.1 % (3-14); Neutrophils Absolute Auto 12600 /uL (1500-7000); Neutrophils Percent Auto 94.2 % (50-75); Platelet Count 185 X10^3/uL (150-400); Red Blood Cell Count 3.64 X10^6/uL (4.5-5.9); Red Cell Distribution Width 17.2 % (11.6-14.8); White Blood Cell Count 13.4 X10^3/uL (4.5-11.0)
[2019-09-16 12:39] LABS: Alanine Aminotransferase 31 IU/L (<50); Albumin 3.6 g/dL (3.5-5.0); Albumin Globulin Ratio 1.6 (1.0-2.8); Alkaline Phosphatase 50 U/L (38-126); Aspartate Aminotransferase 36 IU/L (17-59); BUN Creatinine Ratio 29.4 (6-22); Bilirubin Total 0.8 mg/dL (0.2-1.3); Blood Urea Nitrogen 42 mg/dL (9-20); Calcium 9.6 mg/dL (8.4-10.2); Carbon Dioxide 28 mmol/L (22-32); Chloride 103 mmol/L (98-107); Estimated Glomerular Filt Rate 47.6 mL/min (>60); Globulin 2.3 g/dL (1.7-4.1); Glucose 96 mg/dL (80-110); HEMOLYSIS 56 (0-50); Lactate (Lactic Acid) 2.1 mmol/L (0.7-2.1); Potassium 4.7 mmol/L (3.4-5.1); Sodium 137 mmol/L (137-145); Total Protein 5.9 g/dL (6.3-8.2)
--- NOTE | 2019-09-16 12:39 | ED_ITS ---
HPI - SOB/Dyspnea General Chief Complaint: Shortness of Breath/Dyspnea Stated Complaint: SOB Time Seen by Provider: 09/16/19 12:38 Source: patient and EMS Mode of arrival: EMS Limitations: no limitations History of Present Illness HPI Narrative: The patient arrives via EMS with severe dyspnea. He is normally on 6 L of oxygen nasal cannula at home due to interstitial lung disease, this is apparently due to a history of scleroderma. Over the last several days his O2 needs have increased, he is up to 8 L at home. He has no associated cough, or fever. He has been home for 3 months without significant outside contact. He has no obvious exposure to COVID-19. He had chest discomfort briefly about 6 weeks ago. He also had back pain about 6 weeks ago. He has now developed severe peripheral edema, apparently evolving over a time following those events. He has history aortic valve replacement, apparently has mitral valve disease. He initially had an ICD placed in 2006. The knee was replaced in 2012, and again April 2019. He is anticoagulated. With the symptoms he has had no hemoptysis. He has no GI complaints. He is on meds for BPH, but has no current urinary complaints. He has no calf tenderness or leg pain, he does have significant edema. He has existing orthopnea, perhaps increased. This is unclear. He is on CPAP at home. Additionally, he has history of atrial fib, hypertension. Review of records do not indicate a prior history of CHF. Related Data Home Medications Medication Instructions Recorded Confirmed mycophenolate mofetil [CellCept] 1,500 mg PO BID #0 11/14/16 sildenafil (pulm.hypertension) 20 mg PO TID #0 11/14/16 [Revatio] [SULFAMETHOXAZOLE] 1 tab PO #0 02/22/17 calcium carbonate-vitamin D3 1 cap PO QDAY #0 02/22/17 [Calcium 600 with Vitamin D3] finasteride 5 mg PO QDAY #0 02/22/17 multivitamin [Multiple Vitamins] 1 tab PO QDAY #0 02/22/17 terazosin 5 mg PO HS #0 02/23/17 potassium chloride 20 meq PO BIDCC #0 05/19/17 prednisone 10 mg PO AMCC #0 05/19/17 Previous Rx's Medication Instructions Recorded furosemide 40 mg PO BID #60 tab 02/25/17 Allergies Allergy/AdvReac Type Severity Reaction Status Date / Time codeine [CODEINE] Allergy Unknown Verified 09/16/19 12:32 Review of Systems Review of Systems ROS Unobtainable: All systems reviewed & are unremarkable except as noted in HPI and below Constitutional Constitutional: Reports system reviewed and no additional complaints, except as documented and Denies frequent falls Eyes Eyes: Denies change in vision and Denies eye discharge ENT Ears, Nose, Mouth, and Throat: Denies dizziness and Denies sore throat Cardiovascular Cardiovascular: Denies rapid heart rate, Reports pedal edema and Reports leg edema Comments: No current chest pain. Respiratory Comments: Chronic dyspnea, recently increased. No significant cough. Gastrointestinal Comments: Two days of recent diarrhea, resolved for the past week. Genitourinary Comments: History of BPH. No issues with urination at this time. No genital pain. Musculoskeletal Musculoskeletal: Denies numbness Comments: Recent episode of back pain, no current pain. Integumentary/Breasts Skin/Breast: Denies pruritus, Denies erythema, Denies rash and Denies wounds Neurologic Neurologic: Denies behavioral changes, Denies confusion, Denies dizziness, Denies frequent falls and Denies numbness Psychiatric Psychiatric: Denies behavioral changes and Denies confusion Patient History Medical History (Updated 09/16/19 @ 14:46 by Alonso Torres MD) Anemia (Acute) Chronic kidney failure (Acute) History of atrial fibrillation (Acute) History of scleroderma (Acute) Hypertension (Acute) ILD (interstitial lung disease) (Acute) Non-STEMI (non-ST elevated myocardial infarction) (Acute) Pulmonary fibrosis (Acute) Valvular heart disease (Acute) Surgical History (Updated 09/16/19 @ 14:45 by Alonso Torres MD) AICD (automatic cardioverter/defibrillator) present (Acute) Aortic valve replaced (Acute) History of appendectomy (Acute) History of bladder surgery (Acute) History of cholecystectomy (Acute) History of esophagogastroduodenoscopy (EGD) (Acute) History of lung biopsy (Acute) alcohol intake frequency: 0-2 drinks per day Substance Use Type: does not use Exam Initial Vital Signs Initial Vital Signs: Vital Signs Temperature 98.1 F 09/16/19 12:15 Pulse Rate 89 09/16/19 12:15 Respiratory Rate 42 H 09/16/19 12:15 Blood Pressure 120/72 09/16/19 12:15 Pulse Oximetry 99 09/16/19 12:15 Const General: cooperative and well developed Nutritional Appearance: well nourished Other: Speaking in full sentences. HENMT Mouth: oral mucosae normal Throat: posterior oropharynx normal Eyes Conjunctivae: conjunctivae normal Neck Neck: No JVD Chest Chest: normal inspection of the chest Other: Left chest contusion from recent pacer placement. Resp Other: Diffuse rales and rhonchi, greatest in the right base. No wheezes. Cardio Rate: regular rate Rhythm: regular rhythm Heart Sounds: S1 normal, S2 normal, no click, no gallops, no murmurs and no rubs Pulses: normal peripheral pulses GI Inspection: non-distended Palpation: soft, no hepatosplenomegaly, No guarding, No pulsatile mass and No tender Auscultation: normal bowel sounds Back/Spine/Pelvis Back: No back tenderness Skin General: no rashes or lesions noted and No petechiae Neuro General: patient alert, patient oriented x3, gait normal and no focal motor deficits Speech: speech normal Extrem Other: 4+ bilateral lower extremity edema. Dorsalis pedis pulses are intact. Psych Appearance: well kempt Mental Status: mental status grossly normal Attitude: cooperative Thought Content: normal Judgment: judgment good Course Course Course Narrative: The patient has interstitial lung disease, significantly O2 dependent. He has experienced recent increase in oxygen demand. He is found to be in CHF, he has no prior history of such. He was treated with IV Lasix 80 mg, as well as topical nitro. He was started on BiPAP. BNP is 5900, there is no evidence of acute coronary syndrome. His WBC count is elevated, but he is not giving the history consistent with productive cough or other suggested pneumonia. COVID-19 testing is negative. Limited past medical records are available. He has valvular heart disease, as well as aortic replacement. There is no indication of a past history of CHF. Treatment of CHF has been initiated. I discussed the situation with the patient, he confirms that he is DNR/DNI. The patient was discussed with the hospitalist, Dr. Zuluaga, the patient will be admitted. Orders Ordered: ED Orders 09/16/19 12:12 XR chest 1V Stat EKG-12 Lead Stat Measure peak expiratory flow ONCE RT Consult Eval and Treat Now 09/16/19 12:20 Complete Blood Count AUTO DIFF Stat Comprehensive Metabolic Panel Stat Lactate (Lactic Acid) Stat 09/16/19 12:36 ABG [Arterial Blood Gas] Stat 09/16/19 12:53 NT-proBNP (BNP-Adult 18+) Stat Troponin & CK Cardiac Panel Stat 09/16/19 13:00 Urinalysis and Microscopic Stat Discontinued Medications Furosemide (Lasix) 80 mg IV NOW ONE Stop: 09/16/19 13:41 Last Admin: 09/16/19 14:28 Dose: 80 mg Documented by: ARELI Nitroglycerin (Nitro-Bid) 0.5 inch TOP NOW ONE Stop: 09/16/19 13:41 Vital Signs Vital signs: Vital Signs - 8 hr 09/16/19 12:15 09/16/19 13:00 09/16/19 13:15 Temperature 98.1 F Pulse Rate 89 84 78 Respiratory Rate 42 H 21 18 Blood Pressure 120/72 113/65 105/55 L Pulse Oximetry 99 100 96 09/16/19 13:30 09/16/19 13:43 09/16/19 13:45 Temperature Pulse Rate 76 74 79 Respiratory Rate 17 24 21 Blood Pressure 102/57 L 111/60 Pulse Oximetry 93 100 93 09/16/19 14:00 Temperature Pulse Rate 77 Respiratory Rate 25 H Blood Pressure 111/59 L Pulse Oximetry 93 MDM - SOB/Dyspnea Lab Data Result diagrams: 09/16/19 12:20 09/16/19 12:20 Labs: Lab Results 09/16/19 09/16/19 09/16/19 Range/Units 12:12 12:20 12:20 WBC 13.4 H (4.5-11.0) X10^3/uL RBC 3.64 L (4.5-5.9) X10^6/uL Hgb 11.6 L (13.5-17.5) g/dL Hct 36.9 L (41-53) % MCV 101.2 H (80-100) fL MCH 31.8 (26-34) PG MCHC 31.4 (30-36) % RDW 17.2 H (11.6-14.8) % Plt Count 185 (150-400) X10^3/uL Neut % (Auto) 94.2 H (50-75) % Lymph % (Auto) 2.5 L (25-40) % [place] % (Auto) 3.1 (3-14) % Eos % (Auto) 0.2 L (2-4) % Baso % (Auto) 0.0 (0-2) % Neut # (Auto) 07514 H (1022-6676) /uL Lymph # (Auto) 300 L (9001-0338) /uL [place] # (Auto) 400 (0-900) /uL Eos # (Auto) 0 (0-450) /uL Baso # (Auto) 0 (0-100) /uL ABG pH (7.35-7.45) ABG pCO2 (35-45) mmHg ABG pO2 (80-100) mmHg ABG HCO3 (22-26) mmol/L ABG Total CO2 (21-31) mmol/L ABG O2 Saturation (95-100) % ABG Base Excess (-2-2) mmol/L FiO2 Sodium 137 (137-145) mmol/L Potassium 4.7 (3.4-5.1) mmol/L Chloride 103 (98-107) mmol/L Carbon Dioxide 28 (22-32) mmol/L BUN 42 H (9-20) mg/dL Creatinine 1.43 H (0.66-1.25) mg/dL Estimated GFR 47.6 L (>60) mL/min BUN/Creatinine Ratio 29.4 H (6-22) Glucose 96 (80-110) mg/dL Lactate (0.7-2.1) mmol/L Calcium 9.6 (8.4-10.2) mg/dL Total Bilirubin 0.8 (0.2-1.3) mg/dL AST 36 (17-59) IU/L ALT 31 (<50) IU/L Alkaline Phosphatase 50 (38-126) U/L Total Creatine Kinase (55-170) U/L CK-MB (CK-2) CK-MB (CK-2) Rel Index Troponin I (0.01-0.034) ng/mL NT-Pro-B Natriuret Pep (<450) pg/mL Total Protein 5.9 L (6.3-8.2) g/dL Albumin 3.6 (3.5-5.0) g/dL Globulin 2.3 (1.7-4.1) g/dL Albumin/Globulin Ratio 1.6 (1.0-2.8) Urine Color Urine Appearance Urine pH (4.5-8.0) Ur Specific [place] (1.000-1.035) Urine Protein (Negative) Urine Glucose (UA) (Negative) g/dL Urine Ketones (NEGATIVE) Urine Occult Blood (Negative) Urine Nitrate (Negative) Urine Bilirubin (NEGATIVE) Urine Urobilinogen (0.2) E.U./dL Ur Leukocyte Esterase (NEGATIVE) Urine RBC (0-5/HPF) Urine WBC (0-5/HPF) Ur Squamous Epith Cells (0-5/HPF) Urine Bacteria (None) Urine Mucus (Negative) Ur Culture Indicated? COVID-19 PCR Negative (Negative) 09/16/19 09/16/19 09/16/19 Range/Units 12:20 12:36 12:53 WBC (4.5-11.0) X10^3/uL RBC (4.5-5.9) X10^6/uL Hgb (13.5-17.5) g/dL Hct (41-53) % MCV (80-100) fL MCH (26-34) PG MCHC (30-36) % RDW (11.6-14.8) % Plt Count (150-400) X10^3/uL Neut % (Auto) (50-75) % Lymph % (Auto) (25-40) % [place] % (Auto) (3-14) % Eos % (Auto) (2-4) % Baso % (Auto) (0-2) % Neut # (Auto) (8236-1159) /uL Lymph # (Auto) (8427-2470) /uL [place] # (Auto) (0-900) /uL Eos # (Auto) (0-450) /uL Baso # (Auto) (0-100) /uL ABG pH 7.46 H (7.35-7.45) ABG pCO2 35.9 (35-45) mmHg ABG pO2 69 L (80-100) mmHg ABG HCO3 26 (22-26) mmol/L ABG Total CO2 27 (21-31) mmol/L ABG O2 Saturation 95 (95-100) % ABG Base Excess 2.0 (-2-2) mmol/L FiO2 44 Sodium (137-145) mmol/L Potassium (3.4-5.1) mmol/L Chloride (98-107) mmol/L Carbon Dioxide (22-32) mmol/L BUN (9-20) mg/dL Creatinine (0.66-1.25) mg/dL Estimated GFR (>60) mL/min BUN/Creatinine Ratio (6-22) Glucose (80-110) mg/dL Lactate 2.1 (0.7-2.1) mmol/L Calcium (8.4-10.2) mg/dL Total Bilirubin (0.2-1.3) mg/dL AST (17-59) IU/L ALT (<50) IU/L Alkaline Phosphatase (38-126) U/L Total Creatine Kinase (55-170) U/L CK-MB (CK-2) CK-MB (CK-2) Rel Index Troponin I (0.01-0.034) ng/mL NT-Pro-B Natriuret Pep 5990 H (<450) pg/mL Total Protein (6.3-8.2) g/dL Albumin (3.5-5.0) g/dL Globulin (1.7-4.1) g/dL Albumin/Globulin Ratio (1.0-2.8) Urine Color Urine Appearance Urine pH (4.5-8.0) Ur Specific [place] (1.000-1.035) Urine Protein (Negative) Urine Glucose (UA) (Negative) g/dL Urine Ketones (NEGATIVE) Urine Occult Blood (Negative) Urine Nitrate (Negative) Urine Bilirubin (NEGATIVE) Urine Urobilinogen (0.2) E.U./dL Ur Leukocyte Esterase (NEGATIVE) Urine RBC (0-5/HPF) Urine WBC (0-5/HPF) Ur Squamous Epith Cells (0-5/HPF) Urine Bacteria (None) Urine Mucus (Negative) Ur Culture Indicated? COVID-19 PCR (Negative) 09/16/19 09/16/19 Range/Units 12:53 13:00 WBC (4.5-11.0) X10^3/uL RBC (4.5-5.9) X10^6/uL Hgb (13.5-17.5) g/dL Hct (41-53) % MCV (80-100) fL MCH (26-34) PG MCHC (30-36) % RDW (11.6-14.8) % Plt Count (150-400) X10^3/uL Neut % (Auto) (50-75) % Lymph % (Auto) (25-40) % [place] % (Auto) (3-14) % Eos % (Auto) (2-4) % Baso % (Auto) (0-2) % Neut # (Auto) (3741-8069) /uL Lymph # (Auto) (3691-5169) /uL [place] # (Auto) (0-900) /uL Eos # (Auto) (0-450) /uL Baso # (Auto) (0-100) /uL ABG pH (7.35-7.45) ABG pCO2 (35-45) mmHg ABG pO2 (80-100) mmHg ABG HCO3 (22-26) mmol/L ABG Total CO2 (21-31) mmol/L ABG O2 Saturation (95-100) % ABG Base Excess (-2-2) mmol/L FiO2 Sodium (137-145) mmol/L Potassium (3.4-5.1) mmol/L Chloride (98-107) mmol/L Carbon Dioxide (22-32) mmol/L BUN (9-20) mg/dL Creatinine (0.66-1.25) mg/dL Estimated GFR (>60) mL/min BUN/Creatinine Ratio (6-22) Glucose (80-110) mg/dL Lactate (0.7-2.1) mmol/L Calcium (8.4-10.2) mg/dL Total Bilirubin (0.2-1.3) mg/dL AST (17-59) IU/L ALT (<50) IU/L Alkaline Phosphatase (38-126) U/L Total Creatine Kinase < 20 L (55-170) U/L CK-MB (CK-2) TNP CK-MB (CK-2) Rel Index TNP Troponin I 0.052 H (0.01-0.034) ng/mL NT-Pro-B Natriuret Pep (<450) pg/mL Total Protein (6.3-8.2) g/dL Albumin (3.5-5.0) g/dL Globulin (1.7-4.1) g/dL Albumin/Globulin Ratio (1.0-2.8) Urine Color Yellow Urine Appearance Clear Urine pH 5.0 (4.5-8.0) Ur Specific [place] 1.015 (1.000-1.035) Urine Protein Negative (Negative) Urine Glucose (UA) Negative (Negative) g/dL Urine Ketones Negative (NEGATIVE) Urine Occult Blood Negative (Negative) Urine Nitrate Negative (Negative) Urine Bilirubin Negative (NEGATIVE) Urine Urobilinogen 0.2 (0.2) E.U./dL Ur Leukocyte Esterase Negative (NEGATIVE) Urine RBC None seen (0-5/HPF) Urine WBC 0-1/hpf (0-5/HPF) Ur Squamous Epith Cells 0-1 /hpf (0-5/HPF) Urine Bacteria None seen (None) Urine Mucus 1+ H (Negative) Ur Culture Indicated? Cult not indicated COVID-19 PCR (Negative) Imaging Data Chest x-ray: Radiologist's Impression: [address] [address] XRay Report Signed Patient: Donn Funez GMR#: [id number] : 1940Acct:[id number] Age/Sex: 79 / MDate of Service: 09/16/19 Loc: ED Accession Number: [id number] Procedure: XR chest 1V Ordering Provider: Alonso Torres MD PROCEDURE: XR CHEST 2V INDICATIONS: shortness of breath TECHNIQUE: 2 views of the chest were acquired. COMPARISON: [facility], , XR CHEST 2 VIEWS, 07/03/2017, 15:41. FINDINGS: Surgical changes and devices: A left-sided cardiac pacer/defibrillator is noted. A cardiac valvular stent is noted. Lungs and pleura: Peripheral interstitial prominence is identified within the lungs, which is similar to the previous study. There is no new area of consolidation evident. Mediastinum: Mediastinal contours are normal. Heart size is enlarged. There is aortic atherosclerosis. Bones and chest wall: No suspicious bony abnormalities. Soft tissues appear unremarkable. IMPRESSION: Chronic interstitial changes within the lungs are similar to the prior study. No definitive acute cardiopulmonary process is evident. Dictated by: Booker Pepper M.D. on 09/16/2019 at 12:31 Approved by: Booker Pepper M.D. on 09/16/2019 at 12:32 ECG Data Attestation: I personally reviewed and interpreted this ECG as follows: (Normal sinus rhythm rate 70 beats per minute. Normal intervals. No ectopy. No acute ST T wave changes.) Critical Care Time Critical Care Time Critical Care Time: Yes Total Critical Care Time: 40 Attestation: Critical care time includes initial assessment the patient, review of past medical records, review of EKG, lab and radiology data. Multiple clinical decisions have been made. The patient's code status has been discussed. Clinical findings and needs were discussed the patient. I discussed the case with the admitting hospitalist. Discharge Plan Departure Patient Disposition: [facility] Clinical Impression: ILD (interstitial lung disease) Congestive heart failure Qualifiers: Heart failure type: unspecified Heart failure chronicity: acute Qualified Code(s): I50.9 - Heart failure, unspecified Chronic kidney failure Qualifiers: Chronic kidney disease stage: stage 3 (moderate) Qualified Code(s): N18.3 - Chronic kidney disease, stage 3 (moderate) Discharge Date/Time: 09/16/19 14:45 Admit Date/Time: 09/16/19 14:44 Admit Provider: Reina Zuluaga
[2019-09-16 12:48] LABS: HCO3 ABG 26 mmol/L (22-26); PCO2 ABG 35.9 mmHg (35-45); PO2 ABG 69 mmHg (80-100); pH ABG 7.46 (7.35-7.45)
[2019-09-16 12:49] LABS: Fractionated Inspired Oxygen 44; Oxygen Saturation ABG 95 % (95-100); TCO2 ABG 27 mmol/L (21-31)
--- NOTE | 2019-09-16 13:00 | PC.NURSE ---
pt arrived with a paced normal sinus rhythm . the rhythm changed to lbb while urinating. dr. calzada aware
[2019-09-16 13:02] LABS: Creatine Kinase < 20 U/L (55-170)
--- NOTE | 2019-09-16 13:07 | PC.NURSE ---
rhthym is now Sinus rhythm again
[2019-09-16 13:09] LABS: Bacteria Urine None Seen; RBC Urine None Seen (0-5/HPF)
[2019-09-16 13:11] LABS: Appearance Urine UA CLEAR; Bilirubin Urine UA NEGATIVE (NEGATIVE); Color Urine UA YELLOW; Glucose Urine UA NEGATIVE (Negative); Ketones Urine UA NEGATIVE (NEGATIVE); Leukocyte Esterase Urine UA NEGATIVE (NEGATIVE); Nitrite Urine UA NEGATIVE (Negative); Occult Blood Urine UA NEGATIVE (Negative); Protein Urine UA NEGATIVE (Negative); Specific Gravity Urine UA 1.015 (1.000-1.035); Urobilinogen Urine UA 0.2 E.U./dL (0.2)
[2019-09-16 13:12] LABS: NT-proBNP (BNP-Adult 18+) 5990 pg/mL (<450)
--- NOTE | 2019-09-16 13:13 | PC.NURSE ---
pt placed on bipap 10/5, fio2 35%. pt reports that he is much more comfortable.
[2019-09-16 13:14] LABS: COVID19 -Nasal RAPID Negative (Negative)
[2019-09-16 13:15] LABS: Troponin I 0.052 ng/mL (0.01-0.034)
[2019-09-16 13:18] LABS: Culture Indicated Urine Cult Not Indicated; Mucus Urine 1+ (Negative); Squamous Epithelial Cell Urine 0-1 /HPF (0-5/HPF); WBC Urine 0-1/HPF (0-5/HPF)
[2019-09-16] MEDS: FUROSEMIDE 100 MG/10 ML VIAL 80 MG IV ×2 (14:28→19:42)
[2019-09-16] MEDS: NITROGLYCERIN OINT 1 INCH/GM OINT...G. 0.5 INCH TOP (14:40)
--- NOTE | 2019-09-16 15:59 | CM.DPNOTE ---
Spoke with Kori at [facility]... Pt. sent here by their OT. Pt. being followed by them for Nursing PT and OT)
--- NOTE | 2019-09-16 17:48 | PM.HP.1 ---
History of Present Illness History of Present Illness Date Patient Seen: 09/16/19 Chief complaint: SOB Narrative: The patient is he is an 79-year-old male with a history of interstitial lung disease, pulmonary fibrosis, scleroderma, chronic atrial fibrillation on anticoagulation, chronic kidney disease, who presents to the hospital with increasing shortness of breath. Patient has chronic respiratory failure and usually is 6 L of oxygen at home. Over the past month he has had to increase his oxygen from 6 L to up to 10 L or more with activity. He is also low noticed lower extremity edema which has gotten progressively worse over the past month. He has been sleeping in a recliner and has had some orthopnea. He has not had any chest pain per se or palpitations. He denies any fever chills or cough. The patient has been taking his medications as prescribed which include Lasix for lower extremity edema. Despite that he continues to have increasing swelling and shortness of breath. The patient was seen and evaluated in the emergency room today. Was found to have a proBNP of greater than 5900. Chest x-ray showed interstitial findings. Patient was admitted to the hospital for acute respiratory failure secondary to CHF. Patient reports his baseline weight is around 199-205. He waited in today at about 220. Patient History Medical History Anemia (Acute) Chronic kidney failure (Acute) History of atrial fibrillation (Acute) History of scleroderma (Acute) Hypertension (Acute) ILD (interstitial lung disease) (Acute) Non-STEMI (non-ST elevated myocardial infarction) (Acute) Pulmonary fibrosis (Acute) Valvular heart disease (Acute) Surgical History AICD (automatic cardioverter/defibrillator) present (Acute) Aortic valve replaced (Acute) History of appendectomy (Acute) History of bladder surgery (Acute) History of cholecystectomy (Acute) History of esophagogastroduodenoscopy (EGD) (Acute) History of lung biopsy (Acute) Family & Social History Family History (Updated 09/16/19 @ 18:08 by Reina Zuluaga MD) Father Acute renal failure Brother Cardiac disease Sister Stroke Social History: household members spouse Prior Living Arrangements House Safety & Behavioral: Feels Safe in Current Yes Environment Been Physically Hurt or No Threatened By a Person Suicidal Ideation Description None Tobacco & Substance use: Smoking Status Former smoker alcohol intake frequency 0-2 drinks per day Substance Use Type does not use Meds Home Medications and Allergies Home Medications Medication Instructions Recorded Confirmed Type mycophenolate mofetil [CellCept] 1,500 mg PO BID #0 11/14/16 History sildenafil (pulm.hypertension) 20 mg PO TID #0 11/14/16 History [Revatio] [SULFAMETHOXAZOLE] 1 tab PO #0 02/22/17 History calcium carbonate-vitamin D3 1 cap PO QDAY #0 02/22/17 History [Calcium 600 with Vitamin D3] finasteride 5 mg PO QDAY #0 02/22/17 History multivitamin [Multiple Vitamins] 1 tab PO QDAY #0 02/22/17 History terazosin 5 mg PO HS #0 02/23/17 History furosemide 40 mg PO BID #60 tab 02/25/17 Rx potassium chloride 20 meq PO BIDCC #0 05/19/17 History prednisone 10 mg PO AMCC #0 05/19/17 History Tylenol 650 mg PO Q6H 09/16/19 09/16/19 History methocarbamol 750 mg PO PRN PRN 09/16/19 09/16/19 History metoprolol succinate 100 mg PO BID 09/16/19 09/16/19 History mycophenolate mofetil 1,000 mg PO BID 09/16/19 09/16/19 History Allergies Allergy/AdvReac Type Severity Reaction Status Date / Time codeine [CODEINE] Allergy Unknown Verified 09/16/19 12:32 Review of Systems Review of Systems ROS: Yes All systems reviewed with the patient and are negative except as otherwise documented Exam Vital Signs (past 8 hours): - 09/16/19 12:15 09/16/19 13:00 09/16/19 13:15 Temperature 98.1 F Pulse Rate 89 84 78 Respiratory Rate 42 H 21 18 Blood Pressure 120/72 113/65 105/55 L Pulse Oximetry 99 100 96 09/16/19 13:30 09/16/19 13:43 09/16/19 13:45 Temperature Pulse Rate 76 74 79 Respiratory Rate 17 24 21 Blood Pressure 102/57 L 111/60 Pulse Oximetry 93 100 93 09/16/19 14:00 09/16/19 14:15 07/20/20 14:30 Temperature Pulse Rate 77 78 77 Respiratory Rate 25 H 26 H 26 H Blood Pressure 111/59 L 107/58 L 107/58 L Pulse Oximetry 93 95 93 09/16/19 14:39 09/16/19 14:40 09/16/19 14:45 Temperature Pulse Rate 77 76 77 Respiratory Rate 24 23 Blood Pressure 106/59 L 106/59 L 109/61 Pulse Oximetry 92 93 09/16/19 15:00 09/16/19 15:15 09/16/19 15:30 Temperature Pulse Rate 81 77 80 Respiratory Rate 27 H 26 H 24 Blood Pressure 117/67 115/64 115/64 Pulse Oximetry 94 94 94 09/16/19 16:34 09/16/19 16:53 Temperature 97.3 F L Pulse Rate 89 Respiratory Rate 22 Blood Pressure 134/63 Pulse Oximetry 94 94 Fraction of Inspired Oxygen 28 Oxygen Delivery Method BiPAP Oxygen Flow Rate 6 Narrative Exam Narrative: Ill-appearing male lying in bed on BiPAP HEENT: Normocephalic atraumatic, sclerae anicteric, oropharynx reveals dry mucous membranes, patient appears to be cushion Lungs: Decreased breath sounds, bibasilar Velcro crackles noted Cardiac exam: Irregularly irregular, normal S1-S2, 3/6 blowing systolic ejection murmur Abdomen: Mildly distended nontender, no hepatosplenomegaly, no board-like rigidity, no palpable mass Extremities: 3+ pitting edema bilateral, extremities are cold and cool, there is mottled discoloration on the anterior meadows, there is bruising on the chest wall, there are areas of skin breakdown along the heel in the posterior portion bilaterally of both legs Neuro exam: Nonfocal Objective Labs Result Diagrams: 09/16/19 12:20 09/16/19 12:20 Labs: Laboratory Results - last 24 hr 09/16/19 09/16/19 09/16/19 12:12 12:20 12:20 WBC 13.4 H RBC 3.64 L Hgb 11.6 L Hct 36.9 L MCV 101.2 H MCH 31.8 MCHC 31.4 RDW 17.2 H Plt Count 185 Neut % (Auto) 94.2 H Lymph % (Auto) 2.5 L [place] % (Auto) 3.1 Eos % (Auto) 0.2 L Baso % (Auto) 0.0 Neut # (Auto) 20205 H Lymph # (Auto) 300 L [place] # (Auto) 400 Eos # (Auto) 0 Baso # (Auto) 0 ABG pH ABG pCO2 ABG pO2 ABG HCO3 ABG Total CO2 ABG O2 Saturation ABG Base Excess FiO2 Sodium 137 Potassium 4.7 Chloride 103 Carbon Dioxide 28 BUN 42 H Creatinine 1.43 H Estimated GFR 47.6 L BUN/Creatinine Ratio 29.4 H Glucose 96 Lactate Calcium 9.6 Total Bilirubin 0.8 AST 36 ALT 31 Alkaline Phosphatase 50 Total Creatine Kinase CK-MB (CK-2) CK-MB (CK-2) Rel Index Troponin I NT-Pro-B Natriuret Pep Total Protein 5.9 L Albumin 3.6 Globulin 2.3 Albumin/Globulin Ratio 1.6 Urine Color Urine Appearance Urine pH Ur Specific [place] Urine Protein Urine Glucose (UA) Urine Ketones Urine Occult Blood Urine Nitrate Urine Bilirubin Urine Urobilinogen Ur Leukocyte Esterase Urine RBC Urine WBC Ur Squamous Epith Cells Urine Bacteria Urine Mucus Ur Culture Indicated? COVID-19 PCR Negative 09/16/19 09/16/19 09/16/19 12:20 12:36 12:53 WBC RBC Hgb Hct MCV MCH MCHC RDW Plt Count Neut % (Auto) Lymph % (Auto) [place] % (Auto) Eos % (Auto) Baso % (Auto) Neut # (Auto) Lymph # (Auto) [place] # (Auto) Eos # (Auto) Baso # (Auto) ABG pH 7.46 H ABG pCO2 35.9 ABG pO2 69 L ABG HCO3 26 ABG Total CO2 27 ABG O2 Saturation 95 ABG Base Excess 2.0 FiO2 44 Sodium Potassium Chloride Carbon Dioxide BUN Creatinine Estimated GFR BUN/Creatinine Ratio Glucose Lactate 2.1 Calcium Total Bilirubin AST ALT Alkaline Phosphatase Total Creatine Kinase CK-MB (CK-2) CK-MB (CK-2) Rel Index Troponin I NT-Pro-B Natriuret Pep 5990 H Total Protein Albumin Globulin Albumin/Globulin Ratio Urine Color Urine Appearance Urine pH Ur Specific [place] Urine Protein Urine Glucose (UA) Urine Ketones Urine Occult Blood Urine Nitrate Urine Bilirubin Urine Urobilinogen Ur Leukocyte Esterase Urine RBC Urine WBC Ur Squamous Epith Cells Urine Bacteria Urine Mucus Ur Culture Indicated? COVID-19 PCR 09/16/19 09/16/19 12:53 13:00 WBC RBC Hgb Hct MCV MCH MCHC RDW Plt Count Neut % (Auto) Lymph % (Auto) [place] % (Auto) Eos % (Auto) Baso % (Auto) Neut # (Auto) Lymph # (Auto) [place] # (Auto) Eos # (Auto) Baso # (Auto) ABG pH ABG pCO2 ABG pO2 ABG HCO3 ABG Total CO2 ABG O2 Saturation ABG Base Excess FiO2 Sodium Potassium Chloride Carbon Dioxide BUN Creatinine Estimated GFR BUN/Creatinine Ratio Glucose Lactate Calcium Total Bilirubin AST ALT Alkaline Phosphatase Total Creatine Kinase < 20 L CK-MB (CK-2) TNP CK-MB (CK-2) Rel Index TNP Troponin I 0.052 H NT-Pro-B Natriuret Pep Total Protein Albumin Globulin Albumin/Globulin Ratio Urine Color Yellow Urine Appearance Clear Urine pH 5.0 Ur Specific [place] 1.015 Urine Protein Negative Urine Glucose (UA) Negative Urine Ketones Negative Urine Occult Blood Negative Urine Nitrate Negative Urine Bilirubin Negative Urine Urobilinogen 0.2 Ur Leukocyte Esterase Negative Urine RBC None seen Urine WBC 0-1/hpf Ur Squamous Epith Cells 0-1 /hpf Urine Bacteria None seen Urine Mucus 1+ H Ur Culture Indicated? Cult not indicated COVID-19 PCR Assessment & Plan Assessment & Plan narrative: Impression 1. 79-year-old male with known chronic respiratory failure admitted to the hospital with acute on chronic hypoxic respiratory failure -patient usually require 6 L of oxygen now requiring up to 10 L or more per day with activity -patient has baseline interstitial lung disease secondary to scleroderma -appears to have acute decompensated congestive heart failure Etiology unclear, await cardiac echo -patient with known valvular heart disease, aortic stenosis and mitral valve disease -will continue Lasix 80 IV q.8 hours -will obtain cardiac echo to evaluate LV function -will continue oxygen at 6 L while at rest -continue BiPAP while diuresing -initial set of cardiac enzymes are negative, will defer additional cardiac enzymes 2. Chronic respiratory failure -secondary to interstitial lung disease and scleroderma -will continue daily prednisone -will continue sildenafil 3. Scleroderma -continue CellCept -likely progress and contributing to worsening interstitial lung disease 4. Benign prostatic hypertrophy -continue finasteride and terazosin 5. Chronic atrial fibrillation -rate control -continue Eliquis 6. Stage 3 chronic kidney disease -will avoid nephrotoxic agent -continue diuresis -will follow electrolytes closely 7. Hypertension -continue current treatment 8. Lower extremity ulceration, will get wound care consult Code status, patient indicates he is DNR DNI, he understands that his life expectancy is shortened given his interstitial lung disease. We discussed the possibility of palliative Care, patient is open and willing to meet with palliative Care regarding goals of care and comfort. Patient is admitted as an inpatient and anticipate he will be in the hospital for greater than 2 days. Given he is on Eliquis no need for further DVT prophylaxis Quality VTE Deep Vein Thrombosis/Pulmonary Embolism Present on Admission: No
[2019-09-16] MEDS: SENNOSIDES 8.6 MG TABLET 17.2 MG PO (20:42)
[2019-09-16] MEDS: DOCUSATE 100 MG CAPSULE PO (20:42)
[2019-09-16] MEDS: SILDENAFIL 20 MG TABLET PO (20:43)
[2019-09-16] MEDS: MYCOPHENOLATE MOFETIL 500 MG TABLET 1000 MG PO (20:43)
[2019-09-16] MEDS: FINASTERIDE 5 MG TABLET PO (20:44)
--- NOTE | 2019-09-16 21:37 | PC.NURSE ---
Admission note: Pt admitted to rm 228 per stretcher from ED. Bipap started with settings, 10/5 FIO2 28% Pt tolerating well. States he uses a Trilogy at home at night. Skin assessment revealed multiple bruised areas on his arms and legs. Sacral area excoriated, pt states the area is very painful. Alevyn placed over area and waffle pad placed under patient. Both heels are bruised and red, foam heel pads placed bilaterally.
[2019-09-17] VITALS (11 sets, daily range): BP systolic 103–118; BP diastolic 56–88; PULSE 81–122; RESP 16–31; TEMP 36.1–36.8; O2SAT 92–99
[2019-09-17] MEDS: FUROSEMIDE 100 MG/10 ML VIAL 80 MG IV (01:55)
[2019-09-17] MEDS: SODIUM CHLORIDE 0.9% FLUSH 10 ML IV ×4 (01:56→21:26)
[2019-09-17] MEDS: ACETAMINOPHEN 325 MG TABLET 650 MG PO ×2 (03:46→09:40)
[2019-09-17] MEDS: methocarbamoL 500 MG TABLET 750 MG PO ×2 (03:47→09:39)
[2019-09-17 05:32] LABS: BUN Creatinine Ratio 24.1 (6-22); Blood Urea Nitrogen 40 mg/dL (9-20); Calcium 9.7 mg/dL (8.4-10.2); Carbon Dioxide 30 mmol/L (22-32); Chloride 100 mmol/L (98-107); Estimated Glomerular Filt Rate 40.1 mL/min (>60); Glucose 84 mg/dL (80-110); HEMOLYSIS < 15 (0-50); Potassium 4.1 mmol/L (3.4-5.1); Sodium 136 mmol/L (137-145)
--- NOTE | 2019-09-17 06:29 | PC.NURSE ---
Sericulturist Note-Patient has slept with hospital Bi-pap on throughout the night, tolerating well, except did have one hour break from [id number] with 6L NC, SpO2 maintained >92%, denies dyspnea, posterior LS have crackles. Scheduled 80mg IV Lasix given at 0200, has voided total 825ml urine via urinal. Medicated with Tylenol and Robaxin for back pain and spasms. Turned side to side Q2h, waffle cushion, and heel protectors on.
[2019-09-17] MEDS: PANTOPRAZOLE 20 MG TABLET PO (06:45)
[2019-09-17 08:26] LABS: Creatine Kinase 30 U/L (55-170)
--- NOTE | 2019-09-17 09:17 | PC.NURSE ---
Noted arrhythmias on tele. Mostly SR/ST with multifocal PVCs, occ couplets and bigeminal PVCs, PACs. Rates 90s-110s. BP 105/59 (73). Rec'd critical trop from lab. Pt denies chest pain, palpitations, chest pressure. He does state that he is short of breath after eating and brushing teeth. Spoke with Dr. Zuluaga at 0910. Reported arrhythmias, BP, HR, troponin. Requested clarification of orders for multiple cardiac meds. Dr. Zuluaga in to see pt at 0915. Verbal instruction rec'd from Dr. Zuluaga to remove ntg paste. Dr. Zuluaga states she will review medications and give directions on what to give and what to hold. She states she will add on add'l lab orders for this AM. Also reported pt back pain and pt requesting add'l intervention for pain. Awaiting new orders.
--- NOTE | 2019-09-17 09:31 | PM.PN.1 ---
Subjective Subjective Date Patient Seen: 09/17/19 Interval history: Mr. Vidal is an 79-year-old male with chronic respiratory failure, secondary to interstitial lung disease, secondary to scleroderma who presented with increasing shortness of breath. Patient has had a 20 lb weight gain over the past month in addition to 3+ pitting edema. The patient typically require 6 L of oxygen. Most least recently he has had significant shortness of breath with minimal exertion and has had to increase his oxygen as well. Last night his proBNP was elevated at over 5900. He received IV Lasix in the emergency department and on the floor with some improvement in urine output. He continues to remain short of breath with minimal exertion today. Patient was noted to have multiple PVCs this morning. His troponin has elevated .690 today. Exam Vital Signs (past 8 hours): - 09/17/19 04:50 09/17/19 05:11 09/17/19 08:00 Temperature 97.6 F 97.0 F L Pulse Rate 84 Respiratory Rate 21 24 Blood Pressure 114/63 114/63 110/88 Pulse Oximetry 97 99 09/17/19 09:21 Temperature Pulse Rate 122 H Respiratory Rate 22 Blood Pressure Pulse Oximetry 93 Fraction of Inspired Oxygen 30 Oxygen Delivery Method Nasal Cannula Oxygen Flow Rate 6 Narrative Exam Narrative: Ill-appearing cushingoid male who is obviously short of breath HEENT: Normocephalic atraumatic, could she noted in appearance, oropharynx is clear, chest wall reveals some bruising Lungs: Decreased breath sounds with bibasilar crackles noted Cardiac exam: Tachycardic, irregular, normal S1-S2, 3/6 systolic ejection Abdomen: Soft nontender nondistended Extremities: 3+ pitting edema Objective Labs Result Diagrams: 09/16/19 12:20 09/17/19 05:00 Labs: Laboratory Results - last 24 hr 09/16/19 09/16/19 09/16/19 12:12 12:20 12:20 WBC 13.4 H RBC 3.64 L Hgb 11.6 L Hct 36.9 L MCV 101.2 H MCH 31.8 MCHC 31.4 RDW 17.2 H Plt Count 185 Neut % (Auto) 94.2 H Lymph % (Auto) 2.5 L [place] % (Auto) 3.1 Eos % (Auto) 0.2 L Baso % (Auto) 0.0 Neut # (Auto) 83456 H Lymph # (Auto) 300 L [place] # (Auto) 400 Eos # (Auto) 0 Baso # (Auto) 0 ABG pH ABG pCO2 ABG pO2 ABG HCO3 ABG Total CO2 ABG O2 Saturation ABG Base Excess FiO2 Sodium 137 Potassium 4.7 Chloride 103 Carbon Dioxide 28 BUN 42 H Creatinine 1.43 H Estimated GFR 47.6 L BUN/Creatinine Ratio 29.4 H Glucose 96 Lactate Calcium 9.6 Total Bilirubin 0.8 AST 36 ALT 31 Alkaline Phosphatase 50 Total Creatine Kinase CK-MB (CK-2) CK-MB (CK-2) Rel Index Troponin I NT-Pro-B Natriuret Pep Total Protein 5.9 L Albumin 3.6 Globulin 2.3 Albumin/Globulin Ratio 1.6 Urine Color Urine Appearance Urine pH Ur Specific [place] Urine Protein Urine Glucose (UA) Urine Ketones Urine Occult Blood Urine Nitrate Urine Bilirubin Urine Urobilinogen Ur Leukocyte Esterase Urine RBC Urine WBC Ur Squamous Epith Cells Urine Bacteria Urine Mucus Ur Culture Indicated? Nasal Screen MRSA (PCR) COVID-19 PCR Negative 09/16/19 09/16/19 09/16/19 12:20 12:36 12:53 WBC RBC Hgb Hct MCV MCH MCHC RDW Plt Count Neut % (Auto) Lymph % (Auto) [place] % (Auto) Eos % (Auto) Baso % (Auto) Neut # (Auto) Lymph # (Auto) [place] # (Auto) Eos # (Auto) Baso # (Auto) ABG pH 7.46 H ABG pCO2 35.9 ABG pO2 69 L ABG HCO3 26 ABG Total CO2 27 ABG O2 Saturation 95 ABG Base Excess 2.0 FiO2 44 Sodium Potassium Chloride Carbon Dioxide BUN Creatinine Estimated GFR BUN/Creatinine Ratio Glucose Lactate 2.1 Calcium Total Bilirubin AST ALT Alkaline Phosphatase Total Creatine Kinase CK-MB (CK-2) CK-MB (CK-2) Rel Index Troponin I NT-Pro-B Natriuret Pep 5990 H Total Protein Albumin Globulin Albumin/Globulin Ratio Urine Color Urine Appearance Urine pH Ur Specific [place] Urine Protein Urine Glucose (UA) Urine Ketones Urine Occult Blood Urine Nitrate Urine Bilirubin Urine Urobilinogen Ur Leukocyte Esterase Urine RBC Urine WBC Ur Squamous Epith Cells Urine Bacteria Urine Mucus Ur Culture Indicated? Nasal Screen MRSA (PCR) COVID-19 PCR 09/16/19 09/16/19 09/16/19 12:53 13:00 17:20 WBC RBC Hgb Hct MCV MCH MCHC RDW Plt Count Neut % (Auto) Lymph % (Auto) [place] % (Auto) Eos % (Auto) Baso % (Auto) Neut # (Auto) Lymph # (Auto) [place] # (Auto) Eos # (Auto) Baso # (Auto) ABG pH ABG pCO2 ABG pO2 ABG HCO3 ABG Total CO2 ABG O2 Saturation ABG Base Excess FiO2 Sodium Potassium Chloride Carbon Dioxide BUN Creatinine Estimated GFR BUN/Creatinine Ratio Glucose Lactate Calcium Total Bilirubin AST ALT Alkaline Phosphatase Total Creatine Kinase < 20 L CK-MB (CK-2) TNP CK-MB (CK-2) Rel Index TNP Troponin I 0.052 H NT-Pro-B Natriuret Pep Total Protein Albumin Globulin Albumin/Globulin Ratio Urine Color Yellow Urine Appearance Clear Urine pH 5.0 Ur Specific [place] 1.015 Urine Protein Negative Urine Glucose (UA) Negative Urine Ketones Negative Urine Occult Blood Negative Urine Nitrate Negative Urine Bilirubin Negative Urine Urobilinogen 0.2 Ur Leukocyte Esterase Negative Urine RBC None seen Urine WBC 0-1/hpf Ur Squamous Epith Cells 0-1 /hpf Urine Bacteria None seen Urine Mucus 1+ H Ur Culture Indicated? Cult not indicated Nasal Screen MRSA (PCR) Negative for mrsa COVID-19 PCR 09/17/19 09/17/19 05:00 05:00 WBC RBC Hgb Hct MCV MCH MCHC RDW Plt Count Neut % (Auto) Lymph % (Auto) [place] % (Auto) Eos % (Auto) Baso % (Auto) Neut # (Auto) Lymph # (Auto) [place] # (Auto) Eos # (Auto) Baso # (Auto) ABG pH ABG pCO2 ABG pO2 ABG HCO3 ABG Total CO2 ABG O2 Saturation ABG Base Excess FiO2 Sodium 136 L Potassium 4.1 Chloride 100 Carbon Dioxide 30 BUN 40 H Creatinine 1.66 H Estimated GFR 40.1 L BUN/Creatinine Ratio 24.1 H Glucose 84 Lactate Calcium 9.7 Total Bilirubin AST ALT Alkaline Phosphatase Total Creatine Kinase 30 L CK-MB (CK-2) TNP CK-MB (CK-2) Rel Index TNP Troponin I 0.690 H* NT-Pro-B Natriuret Pep Total Protein Albumin Globulin Albumin/Globulin Ratio Urine Color Urine Appearance Urine pH Ur Specific [place] Urine Protein Urine Glucose (UA) Urine Ketones Urine Occult Blood Urine Nitrate Urine Bilirubin Urine Urobilinogen Ur Leukocyte Esterase Urine RBC Urine WBC Ur Squamous Epith Cells Urine Bacteria Urine Mucus Ur Culture Indicated? Nasal Screen MRSA (PCR) COVID-19 PCR Assessment & Plan Assessment & Plan narrative: Impression 1. Acute on Chronic hypoxemic respiratory failure -patient is normally on 6 L of oxygen and now is requiring 10 or more L for minimal activity, he has some improvement in breathing associated with BiPAP. Will continue intermittent BiPAP as tolerated -multifactorial most likely secondary to underlying interstitial lung disease -patient may have superimposed cor pulmonale versus diastolic heart failure -cardiac echo pending -will discontinue Lasix from 80 IV q.8 and change to 40 IV Q 8 -cardiology consult, Dr. Alfaro to see today -overall prognosis is grim -would continue to pursue palliative care consultation while working to make breathing improved -will continue the sildenafil, prednisone, oxygen, and Mycophenolate 2. Type 2 Myocardial infarction, present on admission -troponins trending upward, troponin now 0.690 -patient now with significant tachyarrhythmia -continue metoprolol will check magnesium, monitor closely -await cardiac echo -continue beta-cherie -continue aspirin -no anticoagulation at this time -await cardiology consultation 3. Chronic kidney disease stage 3 -notable decrease in renal function associated with diuresis -will decrease Lasix to 40 q.8 instead of 80 Q 8 -will avoid nephrotoxic agent -continue to monitor kidney function closely 4. Scleroderma -continue mycophenolate 5. Urinary retention/BPH -continue finasteride and terazosin 6. Palliative Care -Will consult Khushbu Burleson today -Given progressive Respiratory Decline may be approaching comfort if he does not respond to therapies Quality VTE Deep Vein Thrombosis/Pulmonary Embolism Present on Admission: No
[2019-09-17] MEDS: predniSONE 10 MG TABLET PO (09:39)
[2019-09-17] MEDS: MULTIVITAMIN 1 TABLET 1 TAB PO (09:39)
[2019-09-17] MEDS: SILDENAFIL 20 MG TABLET PO ×3 (09:39→21:25)
[2019-09-17] MEDS: POTASSIUM CHLORIDE 20 MEQ TAB 40 MEQ PO (09:39)
[2019-09-17] MEDS: FUROSEMIDE 40 MG/4 ML VIAL IV ×2 (09:39→17:37)
[2019-09-17] MEDS: DOCUSATE 100 MG CAPSULE PO ×2 (09:39→21:25)
[2019-09-17] MEDS: METOPROLOL ER 50 MG TABLET 100 MG PO (09:39)
[2019-09-17] MEDS: MYCOPHENOLATE MOFETIL 500 MG TABLET 1000 MG PO ×2 (09:39→21:24)
[2019-09-17 09:40] LABS: Magnesium 2.5 mg/dL (1.6-2.3)
[2019-09-17] MEDS: TERAZOSIN 5 MG CAPSULE PO (09:40)
--- NOTE | 2019-09-17 10:40 | DI.ECHO.S_ITS ---
Echocardiogram Report + + :Name: ANSLEY CHAN Study Date: 09/17/2019 Height: 70 in : :[facility] Weight: 222 lb : : Gender: Male BSA: 2.2 m2 : :: 1940 Age: 79 yrs BP: 105/59 mmHg: :Reason For Study: Evaluate CHF : :Ordering Physician: [place] : :Hospitalist Performed By: Tran Ruiz : :Referring: FABRICE VALADEZ : + + Interpretation Summary 1) Mild-moderate concentric left ventricular hypertrophy and normal size and normal systolic function (EF 65-70%). 2) The right ventricle is moderately dilated. Right ventricular systolic function is moderately reduced. 3) The interventricular septum is flattened, consistent with a right ventricular pressure overload condition. 4) There is a bioprosthetic aortic valve that is working well with expected gradient across it (mean 14mmHg). There is mild to moderate perivalvular regurgitation around the prosthetic aortic valve. 5) There is moderate to severe tricuspid regurgitation. 6) The right ventricular systolic pressure is estimated to be at least 110 mmHg based on an estimated right atrial pressure of 8 mm Hg. 7) Compared to the Echo done 03/28/2018, severe pulmonary hypertension (increase from 58mmHg to 110mmHg) is present on this study. Procedure: A two-dimensional transthoracic echocardiogram with color flow and Doppler was performed. The study quality was technically adequate. Comparison is made with the echocardiogram of 03/28/2018. The heart rate ranged between 85-110 bpm during the study. Left Ventricle: The left ventricle is normal in size. There is mild-moderate concentric left ventricular hypertrophy. The ejection fraction is estimated to be 65-70%. Left ventricular systolic function is normal. The interventricular septum is flattened, consistent with a right ventricular pressure overload condition. Right Ventricle: The right ventricle is moderately dilated. There is a pacemaker lead in the right ventricle. Right ventricular systolic function is moderately reduced. Atria: The left atrium is severely dilated. The right atrium is moderate to severely dilated. There is a catheter/pacemaker lead seen in the right atrium. There is no Doppler evidence for an interatrial shunt. Mitral Valve: The mitral valve leaflets are mildly calcified. There is moderate mitral annular calcification. There is a flat closure plane of the the mitral valve leaflets. There is moderate to severe mitral regurgitation. There are multiple regurgitant jets present. Aortic Valve: There is a bioprosthetic aortic valve. There is mild to moderate perivalvular regurgitation around the prosthetic aortic valve. Tricuspid Valve: The tricuspid valve is normal in structure but is abnormal in function. There is moderate to severe tricuspid regurgitation. The right ventricular systolic pressure is estimated to be at least 110 mmHg based on an estimated right atrial pressure of 8 mm Hg. Pulmonic Valve: The pulmonic valve leaflets are thin and pliable; valve motion is normal. There is no pulmonic valvular regurgitation. Great Vessels: The ascending aorta is mildly enlarged. The IVC is dilated (diameter is greater than 2.1 cm) yet it collapses greater than 50% with a sniff. This suggests a right atrial pressure of 8 mm Hg. Pericardium/ Pleura There is no pericardial effusion. There is no pleural effusion. MMode/2D Measurements & Calculations LVIDd: 4.9 cm LVOT diam: 2.2 cm LVIDs: 3.0 cm asc Aorta Diam: 3.7 cm FS: 38.3 % Ao Arch Diam (Prox Trans): 3.7 cm IVSd: 1.4 cm LVPWd: 1.4 cm LV clark. diameter/BSA (cm/m^2): 2.2 LV sys. diameter/BSA (cm/m^2): 1.4 LA A2 area: 40.7 cm2 RA long axis: 6.9 cm LA A4 area: 26.1 cm2 RA area: 28.1 cm2 LA length (vol): 7.1 cm RA vol: 97.0 ml LA vol: 126.8 ml RA : 44.5 ml/m2 LA vol index: 58.1 ml/m2 IVC diam: 2.3 cm RVD1 (basal): 5.1 cm TAPSE: 1.4 cm Doppler Measurements & Calculations Ao V2 max: 284.9 cm/sec LVOT Max Elmer: 90.4 cm/sec Ao V2 mean: 170.5 cm/sec LV V1 max P.3 mmHg Ao max P.5 mmHg LV V1 VTI: 13.9 cm Ao mean P.3 mmHg LILY(I,D): 1.4 cm2 Ao V2 VTI: 39.6 cm LILY(V,D): 1.2 cm2 sev ratio: 0.35 LILY indexed to BSA (cm^2/m^2): 0.63 MV E max elmer: 121.2 cm/sec TR max elmer: 506.6 cm/sec MV A max elmer: 109.6 cm/sec TR max P.6 mmHg MV E/A: 1.1 Med Peak E' Elmer: 5.2 cm/sec E/E' med: 23.2 Lat Peak E' Elmer: 5.6 cm/sec E/E' lat: 21.8 E/e' average: 22.5 MV dec time: 0.25 sec MVA(VTI): 1.6 cm2 MV V2 mean: 90.2 cm/sec SV(LVOT): 54.4 ml MV mean P.7 mmHg MV V2 VTI: 33.3 cm Reading Physician:12:10 PM
--- NOTE | 2019-09-17 11:06 | CM.DANOTE ---
Discharge Planning/Care Management DCP: assessment: case received, EMR reviewed and met with pt during Team Bedside Rounds. Introduced self and role. Pt is an 79 year old male who admitted yesterday afternoon to care of hospitalist team. Payer: Medicare and [facility] PCP: Dr. Pebbles Zuluaga has consulted pt's tour conductor Dr. Hampton and explained to pt that he would be here later today to see pt. Pt is currently being treated for Acute rsp failure secondary to CHF in setting of other co-morbid conditions. Consultation has also been placed by Dr. Zuluaga to [facility] specialist Khushbu Burleson: Khushbu has confirmed she will be here Wed 09/17 at 1500. Pt is aware and agreeable to this meeting. Have spoken with pt's Michelle Smith: cell: [phone]: she confirms she will be here at that time. Khushbu has been updated. Pt is currently open to [facility] services. Spoke with Maurisio/Gladys liaison: he confirms: RN/OT/PT. [facility] is faxing clinical info. Resume HH orders will be needed at d/c if pt does d/c home with HH. Gladys just recently received this referral, September 01, from Dr. Alejandrina Burleson, a partner of pt's PCP Pt is on home o2 at baseline: see DCP template below for more information. Advanced directive, confirm from FAMILY Start: 09/16/19 16:44 Freq: Q24H Status: Active Protocol: Document 09/16/19 16:44 CW (Rec: 09/16/19 18:55 CW [id number]) Advance Directive, confirm on record Time 17:00 Person contacted spouse Copy received No CM Discharge Assessment Start: 09/17/19 11:04 Freq: Status: Active Protocol: Document 09/17/19 11:04 ITV (Rec: 09/17/19 11:06 ITV [id number]) Discharge Planning Assessment Advance Directives? No History Provided By Patient,Medical Record Has Patient been admitted in last 30 No days? Prior Living Arrangements House Household Members spouse Is patient alert and oriented? Yes DME Already Rented / Owned Oxygen Comment sleeps in a recliner on home O2 at baseline: 6 L recently has been needing 10L Whiteboard Updated in Patient Room with Yes name and ext. # of Airframe Technical Officer Review Status In Process
[2019-09-17] MEDS: CALCIUM CARB/VIT D3 500/200 TABLET 1 EACH PO (11:58)
[2019-09-17] MEDS: LIDOCAINE PATCH 1 EACH ADH..PATCH 2 EACH TOP (11:58)
--- NOTE | 2019-09-17 12:53 | P.HP_ITS ---
History of Present Illness History of Present Illness Chief complaint: SOB Patient History Medical History Anemia (Acute) Chronic kidney failure (Acute) History of atrial fibrillation (Acute) History of scleroderma (Acute) Hypertension (Acute) ILD (interstitial lung disease) (Acute) Non-STEMI (non-ST elevated myocardial infarction) (Acute) Pulmonary fibrosis (Acute) Valvular heart disease (Acute) Surgical History AICD (automatic cardioverter/defibrillator) present (Acute) Aortic valve replaced (Acute) History of appendectomy (Acute) History of bladder surgery (Acute) History of cholecystectomy (Acute) History of esophagogastroduodenoscopy (EGD) (Acute) History of lung biopsy (Acute) Family & Social History Family History (Updated 09/16/19 @ 18:08 by Reina Zuluaga MD) Father Acute renal failure Brother Cardiac disease Sister Stroke Social History: household members spouse Prior Living Arrangements House Safety & Behavioral: Feels Safe in Current Yes Environment Been Physically Hurt or No Threatened By a Person Suicidal Ideation Description None Tobacco & Substance use: Smoking Status Former smoker alcohol intake frequency 0-2 drinks per day Substance Use Type does not use Meds Home Medications and Allergies Home Medications Medication Instructions Recorded Confirmed Type mycophenolate mofetil [CellCept] 1,500 mg PO BID #0 11/14/16 09/16/19 History sildenafil (pulm.hypertension) 20 mg PO TID #0 11/14/16 09/16/19 History [Revatio] [SULFAMETHOXAZOLE] 1 tab PO 3XW #0 02/22/17 09/17/19 History calcium carbonate-vitamin D3 1 cap PO QDAY #0 02/22/17 09/16/19 History [Calcium 600 with Vitamin D3] finasteride 5 mg PO QDAY #0 02/22/17 09/16/19 History multivitamin [Multiple Vitamins] 1 tab PO QDAY #0 02/22/17 09/16/19 History terazosin 5 mg PO HS #0 02/23/17 09/16/19 History furosemide 40 mg PO BID #60 tab 02/25/17 09/16/19 Rx potassium chloride 20 meq PO BIDCC #0 05/19/17 09/16/19 History prednisone 10 mg PO AMCC #0 05/19/17 09/16/19 History Tylenol 650 mg PO Q6H 09/16/19 09/16/19 History methocarbamol 750 mg PO PRN PRN 09/16/19 09/16/19 History metoprolol succinate 100 mg PO BID 09/16/19 09/16/19 History mycophenolate mofetil 1,000 mg PO BID 09/16/19 09/16/19 History Allergies Allergy/AdvReac Type Severity Reaction Status Date / Time codeine [CODEINE] Allergy Unknown Verified 09/16/19 12:32 Exam Vital Signs (past 8 hours): - 09/17/19 05:11 09/17/19 08:00 09/17/19 09:21 Temperature 97.6 F 97.0 F L Pulse Rate 84 122 H Respiratory Rate 21 24 22 Blood Pressure 114/63 110/88 Pulse Oximetry 97 99 93 09/17/19 12:10 Temperature 97.1 F L Pulse Rate 96 H Respiratory Rate 31 H Blood Pressure 103/56 L Pulse Oximetry 94 Fraction of Inspired Oxygen 30 Oxygen Delivery Method Nasal Cannula Oxygen Flow Rate 9 Objective Labs Result Diagrams: 09/16/19 12:20 09/17/19 05:00 Labs: Laboratory Results - last 24 hr 09/16/19 09/16/19 09/16/19 12:12 12:53 12:53 Sodium Potassium Chloride Carbon Dioxide BUN Creatinine Estimated GFR BUN/Creatinine Ratio Glucose Calcium Magnesium Total Creatine Kinase < 20 L CK-MB (CK-2) TNP CK-MB (CK-2) Rel Index TNP Troponin I 0.052 H NT-Pro-B Natriuret Pep 5990 H Urine Color Urine Appearance Urine pH Ur Specific [place] Urine Protein Urine Glucose (UA) Urine Ketones Urine Occult Blood Urine Nitrate Urine Bilirubin Urine Urobilinogen Ur Leukocyte Esterase Urine RBC Urine WBC Ur Squamous Epith Cells Urine Bacteria Urine Mucus Ur Culture Indicated? Nasal Screen MRSA (PCR) COVID-19 PCR Negative 09/16/19 09/16/19 09/17/19 13:00 17:20 05:00 Sodium 136 L Potassium 4.1 Chloride 100 Carbon Dioxide 30 BUN 40 H Creatinine 1.66 H Estimated GFR 40.1 L BUN/Creatinine Ratio 24.1 H Glucose 84 Calcium 9.7 Magnesium Total Creatine Kinase CK-MB (CK-2) CK-MB (CK-2) Rel Index Troponin I NT-Pro-B Natriuret Pep Urine Color Yellow Urine Appearance Clear Urine pH 5.0 Ur Specific [place] 1.015 Urine Protein Negative Urine Glucose (UA) Negative Urine Ketones Negative Urine Occult Blood Negative Urine Nitrate Negative Urine Bilirubin Negative Urine Urobilinogen 0.2 Ur Leukocyte Esterase Negative Urine RBC None seen Urine WBC 0-1/hpf Ur Squamous Epith Cells 0-1 /hpf Urine Bacteria None seen Urine Mucus 1+ H Ur Culture Indicated? Cult not indicated Nasal Screen MRSA (PCR) Negative for mrsa COVID-19 PCR 09/17/19 09/17/19 05:00 05:00 Sodium Potassium Chloride Carbon Dioxide BUN Creatinine Estimated GFR BUN/Creatinine Ratio Glucose Calcium Magnesium 2.5 H Total Creatine Kinase 30 L CK-MB (CK-2) TNP CK-MB (CK-2) Rel Index TNP Troponin I 0.690 H* NT-Pro-B Natriuret Pep Urine Color Urine Appearance Urine pH Ur Specific [place] Urine Protein Urine Glucose (UA) Urine Ketones Urine Occult Blood Urine Nitrate Urine Bilirubin Urine Urobilinogen Ur Leukocyte Esterase Urine RBC Urine WBC Ur Squamous Epith Cells Urine Bacteria Urine Mucus Ur Culture Indicated? Nasal Screen MRSA (PCR) COVID-19 PCR Quality VTE Deep Vein Thrombosis/Pulmonary Embolism Present on Admission: No
--- NOTE | 2019-09-17 12:55 | PM.CN ---
History of Present Illness Consult details Chief complaint: SOB Narrative: 79 yo M h/o ILD, pulm HTN with resultant cor pulmonale, VT s/p AICD, and TAVR 2017 admitted with dyspnea. Patient states that he has noticed worsening dyspnea over the past several months requiring more O2 even with ADLs that require assistance from . He also reports having worsening LE edema and weight gain over the past 3 months or so. Denies any chest pain or syncope. Meds Home Medications and Allergies Home Medications Medication Instructions Recorded Confirmed Type mycophenolate mofetil [CellCept] 1,500 mg PO BID #0 11/14/16 09/16/19 History sildenafil (pulm.hypertension) 20 mg PO TID #0 11/14/16 09/16/19 History [Revatio] [SULFAMETHOXAZOLE] 1 tab PO 3XW #0 02/22/17 09/17/19 History calcium carbonate-vitamin D3 1 cap PO QDAY #0 02/22/17 09/16/19 History [Calcium 600 with Vitamin D3] finasteride 5 mg PO QDAY #0 02/22/17 09/16/19 History multivitamin [Multiple Vitamins] 1 tab PO QDAY #0 02/22/17 09/16/19 History terazosin 5 mg PO HS #0 02/23/17 09/16/19 History furosemide 40 mg PO BID #60 tab 02/25/17 09/16/19 Rx potassium chloride 20 meq PO BIDCC #0 05/19/17 09/16/19 History prednisone 10 mg PO AMCC #0 05/19/17 09/16/19 History Tylenol 650 mg PO Q6H 09/16/19 09/16/19 History methocarbamol 750 mg PO PRN PRN 09/16/19 09/16/19 History metoprolol succinate 100 mg PO BID 09/16/19 09/16/19 History mycophenolate mofetil 1,000 mg PO BID 09/16/19 09/16/19 History Allergies Allergy/AdvReac Type Severity Reaction Status Date / Time codeine [CODEINE] Allergy Unknown Verified 09/16/19 12:32 Exam Vital Signs (past 8 hours): - 09/17/19 05:11 09/17/19 08:00 09/17/19 09:21 Temperature 97.6 F 97.0 F L Pulse Rate 84 122 H Respiratory Rate 21 24 22 Blood Pressure 114/63 110/88 Pulse Oximetry 97 99 93 09/17/19 12:10 Temperature 97.1 F L Pulse Rate 96 H Respiratory Rate 31 H Blood Pressure 103/56 L Pulse Oximetry 94 Fraction of Inspired Oxygen 30 Oxygen Delivery Method Nasal Cannula Oxygen Flow Rate 9 Narrative Exam Narrative: Gen shannon: in mild distress, elderly HEET: NCAT, no scleral icterus, MMM CV: RRR, distant heart sounds, 3/6 systolic murmur, JVP 12cm H20, 3+ LE edema Resp: fair aeration, diffuse crackles b/l Abd: soft, NT Neuro: alert, no facial droop, no gross focal deficits Psych: appropriate affect Skin: intact on the arms and legs, sacral decub ulcers per patient (not examined today due to mobility constraints) Objective Labs Result Diagrams: 09/16/19 12:20 09/17/19 05:00 Labs: Laboratory Results - last 24 hr 09/16/19 09/16/19 09/16/19 12:12 12:53 12:53 Sodium Potassium Chloride Carbon Dioxide BUN Creatinine Estimated GFR BUN/Creatinine Ratio Glucose Calcium Magnesium Total Creatine Kinase < 20 L CK-MB (CK-2) TNP CK-MB (CK-2) Rel Index TNP Troponin I 0.052 H NT-Pro-B Natriuret Pep 5990 H Urine Color Urine Appearance Urine pH Ur Specific [place] Urine Protein Urine Glucose (UA) Urine Ketones Urine Occult Blood Urine Nitrate Urine Bilirubin Urine Urobilinogen Ur Leukocyte Esterase Urine RBC Urine WBC Ur Squamous Epith Cells Urine Bacteria Urine Mucus Ur Culture Indicated? Nasal Screen MRSA (PCR) COVID-19 PCR Negative 09/16/19 09/16/19 09/17/19 13:00 17:20 05:00 Sodium 136 L Potassium 4.1 Chloride 100 Carbon Dioxide 30 BUN 40 H Creatinine 1.66 H Estimated GFR 40.1 L BUN/Creatinine Ratio 24.1 H Glucose 84 Calcium 9.7 Magnesium Total Creatine Kinase CK-MB (CK-2) CK-MB (CK-2) Rel Index Troponin I NT-Pro-B Natriuret Pep Urine Color Yellow Urine Appearance Clear Urine pH 5.0 Ur Specific [place] 1.015 Urine Protein Negative Urine Glucose (UA) Negative Urine Ketones Negative Urine Occult Blood Negative Urine Nitrate Negative Urine Bilirubin Negative Urine Urobilinogen 0.2 Ur Leukocyte Esterase Negative Urine RBC None seen Urine WBC 0-1/hpf Ur Squamous Epith Cells 0-1 /hpf Urine Bacteria None seen Urine Mucus 1+ H Ur Culture Indicated? Cult not indicated Nasal Screen MRSA (PCR) Negative for mrsa COVID-19 PCR 09/17/19 09/17/19 05:00 05:00 Sodium Potassium Chloride Carbon Dioxide BUN Creatinine Estimated GFR BUN/Creatinine Ratio Glucose Calcium Magnesium 2.5 H Total Creatine Kinase 30 L CK-MB (CK-2) TNP CK-MB (CK-2) Rel Index TNP Troponin I 0.690 H* NT-Pro-B Natriuret Pep Urine Color Urine Appearance Urine pH Ur Specific [place] Urine Protein Urine Glucose (UA) Urine Ketones Urine Occult Blood Urine Nitrate Urine Bilirubin Urine Urobilinogen Ur Leukocyte Esterase Urine RBC Urine WBC Ur Squamous Epith Cells Urine Bacteria Urine Mucus Ur Culture Indicated? 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 There may be some component of right sided heart failure that is also causing dyspnea. Patient educated about his condition. - Continue supplement O2 - Cor pulmonale management as below # Cor pulmonale: from worsening pulmonary hypertension (PASP increased from 58mmHg in 02/2018 to 110 09/17/2019). Pulm HTN is from progressive IPF. Due to cor pulmonale, RV is moderately enlarged and has moderated reduced systolic function. LV function is normal and TAVR valve is functioning normally. Patient educated about his condition. - Continue furosemide 40mg IV q8hrs for diuresis (goal to be net negative 1-2L in 24 hours). The furosemide can be cut back when LE edema resolves (or earlier if JEY gets worse) - Continue with potassium and mag supplementation # PVCs and non-sustained: patient has h/o VT and ACID placement in 2006. Over the past few months, he has required ATP therapy but no shocks recently. - Continue to keep potassium over 4.0 and magnesium over 2.0 - Continue metoprolol XL 100mg daily # Goals of care: agree with palliative care consult. Thank you for the interesting consultation.
--- NOTE | 2019-09-17 15:04 | PC.NURSE ---
Pt working with OT sitting at EOB. Pt tachypneic 50s with decrease in SPO2 to 88% with increased O2 to 12L NC. Transitioned to high flow nasal cannula at 12L and pt recovered after a few minutes of rest. Decreased O2 back to 6LPM. Current SPO2 94-96%. Elevated legs in bed. Pt states lidocaine patch has helped decrease his back pain. Now rating it 4/10. Call light in reach.
--- NOTE | 2019-09-17 15:11 | OT.IP.EVAL ---
Past Medical History (Last Reviewed 09/16/19 @ 18:05 by Reina Zuluaga MD) Anemia (Acute) Chronic kidney failure (Acute) History of atrial fibrillation (Acute) History of scleroderma (Acute) Hypertension (Acute) ILD (interstitial lung disease) (Acute) Non-STEMI (non-ST elevated myocardial infarction) (Acute) Pulmonary fibrosis (Acute) Valvular heart disease (Acute) Surgical History (Last Reviewed 09/16/19 @ 18:05 by Reina Zuluaga MD) AICD (automatic cardioverter/defibrillator) present (Acute) Aortic valve replaced (Acute) History of appendectomy (Acute) History of bladder surgery (Acute) History of cholecystectomy (Acute) History of esophagogastroduodenoscopy (EGD) (Acute) History of lung biopsy (Acute) Occupational Therapy Inpatient Evaluation/Re-Eval M1 PT/OT-IP Prior Functional Status Start: 09/17/19 15:24 Freq: NEEDED Status: Active Protocol: Document 09/17/19 15:25 [facility] (Rec: 09/17/19 16:10 [facility] [id number]) Medical Review Prior Functional Status Medical History Reviewed Yes Communication Independent Mobility and Gait Pt prior use of 4WW to get to the bathroom and however at times having to stop half way to sit and rest on the 4WW. Pt states the bathroom is 25ft away from his recliner. Pt states at home has been increasing his O2 to 12L during mobility needs, otherwise has it on 6L at rest. Activities of Daily Living and IADL's Mainly pt just able to eat, put on his shirt, and do grooming from the toilet on his own. Otherwise in the past 3 months, pt's has progressively been doing more to assist with ADl needs or at times will have to push him on his 4WW to get to the bathroom if not able to walk all the way , in addition they have a WC that they can use at home. Social History Household Members spouse Living Arrangements House Number of Floors (Floors) One Floor Number of Stairs To Enter/Railing? Multiple steps over different terrain. Pt states last time he had to enter the house was months ago and not able to make it in all the way into the house. Pt has 8 concrete steps which the first initial ones are able to fit the 4ww on the steps and afterwards not wide enough to fit the 4WW on the following steps. Then pt has 4 steps with one hand rail to get into the house. Home Environment Standard Height Toilet,Walk in Shower Home Equipment Four Wheel Walker,Manual Wheelchair,Shower Seat with Backrest,Grab Bars In Shower, toilet safety frame M2 OT-IP Current Condition Start: 09/17/19 15:24 Freq: Status: Active Protocol: Document 09/17/19 15:25 [facility] (Rec: 09/17/19 16:10 [facility] [id number]) Occupational Therapy Current Condition Current Condition Evaluation Date 09/17/19 Treatment Diagnosis Dyspnea,acute and chronic hypoxic respiratory failure, decreased mobility Diagnosis Onset Date 09/16/19 M3 OT- IP Subjective and Pain Start: 09/17/19 15:24 Freq: Status: Active Protocol: Document 09/17/19 15:25 [facility] (Rec: 09/17/19 16:10 [facility] [id number]) OT- Subjective Occupational Therapy Visit Type Type Initial Evaluation Visit Start Time 14:01 Visit Stop Time 15:11 Total Visit Minutes 70 Occupational Therapy Visit Comments Patient Comments Pt needing encouragement to participate and open to trying to sit on at the edge of tne bed . Pt's was present during OT eval and in addition nursing in to assist during the mobility needs. Patient/Caregiver Goals To go home. OT Pain Assessment Pain When Pain Assessed During Mobility Pain Present Pain Present Pain Reported Location low back Intensity 6 M4 OT- IP ADL's Start: 09/17/19 15:24 Freq: Status: Active Protocol: Document 09/17/19 15:25 [facility] (Rec: 09/17/19 16:10 [facility] [id number]) OT [id number] Comments OT Self-Feeding Comments Pt able to drink from the water bottle independently. OT ADL-Grooming Comments OT Grooming Comments NOt at this time. OT ADL-Dressing General Eval Lower Body Dressing Ability Total Assistance Areas Needing Assistance Socks Comments OT Dressing Comments Dependent for socks at this time. Pt's states prior had to assist 80% for LB dressing needs. OT ADL-Toileting Comments OT Toileting Comments Pt not having to go and has been using the urinal. OT ADL-Bathing Comments OT Bathing Comments NOt at this time. M5 OT- IP IADL's Start: 09/17/19 15:24 Freq: Status: Active Protocol: Document 09/17/19 15:25 [facility] (Rec: 09/17/19 16:10 [facility] [id number]) OT-Instrumental Activities of Daily Living Home Safety Awareness Awareness of Need for Assistance at Home Good Awareness Medication Management Medication Management Caregiver Administers Money Management Money Management Caregiver Provides Assistance Meal Preparation Meal Preparation Caregiver Provides Assist Lasting Room Machine Operator Lasting Room Machine Operator Caregiver Provides Assist Driving Driving Caregiver Provides Assist M6 OT- IP Functional Cognition Start: 09/17/19 15:24 Freq: Status: Active Protocol: Document 09/17/19 15:25 [facility] (Rec: 09/17/19 16:10 [facility] [id number]) Cognitive Factors Limiting Selfcare Function Cognitive Ability Level of Alertness Alert Patient Orientation Name,Place,Situation Attention Span Ability Capable of Focused Attention, Capable of Sustained Attention Ability to Follow Commands Able to Follow One Step Commands Memory Description Short Term Impaired Cognitive Comments Cognitive Assessment Comments Pt needing lots of encouragement and simple commands to follow. Pt needing extra time to complete commands mainly due to being tired and SOB. Pt blames having not slept well and being on O2 that he is not remembering or thinking well today. OT- Vision and Hearing OT- Hearing Assessment OT- Hearing Assessment WFL OT- Vision Assessment Visual Acuity Glasses For Reading M7 OT- IP Mobility and Balance Start: 09/17/19 15:24 Freq: Status: Active Protocol: Document 09/17/19 15:25 [facility] (Rec: 09/17/19 16:10 [facility] [id number]) OT- Bed Mobility Assessment Supine to Sit Supine to Sit Assist Maximum Assistance,1 Person Assistance,Head of Bed Elevated,Bedrails Sit to Supine Sit to Supine Assist Maximum Assistance,2 Person Assistance Scooting Scooting to Edge of Bed Maximum Assistance,1 Person Assistance OT-Transfer Assessment Sit to and From Stand Sit to and from Stand Moderate Assistance,1 Person Assistance Comments Mobility Comments With HOB up pt needing assist to help move his legs to the edge of the bed MODA and mainly needing assist to help get his trunk upright initially. Pt tires easily and needing to have pillow placed behind him for support. Pt's O2 initially on 9L and dropped while moving 81% and then increased level to 12L and able to maintain from 92-97% and then nursing turned down to 6L after getting back to bed and at 92% Pt able to stand with MODA X 1 and another for safety and able to take a few side steps to the head of the bed and sit. OT- Balance Assessment Sitting Balance and Reactions Static Sitting Balance Ability Fair Standing Balance and Reactions Static Standing Balance Ability Poor M8 OT- IP Objective Assessments Start: 09/17/19 15:24 Freq: Status: Active Protocol: Document 09/17/19 15:25 [facility] (Rec: 09/17/19 16:10 [facility] [id number]) OT Gross Range of Motion Upper Extremity Range of Motion Assessment Within Functional Limits OT Strength Comments Strength Comments 4/5 for BUE OT-Muscle Tone Assessment Muscle Tone WNL Yes M9 OT- IP Assessment and Plan Start: 09/17/19 15:24 Freq: Status: Active Protocol: Document 09/17/19 15:25 [facility] (Rec: 09/17/19 16:10 [facility] [id number]) OT Summary Assessment and Plan Potential Rehabilitation Potential Good Analytic Complexity at Evaluation Low Summary OT Impairments Pain,Strength,Balance, Functional Mobility,Grooming, Dressing,Toileting,Bathing, Toilet Transfers,Shower Transfers,Activity Tolerance Progress Towards Goals Slow Progress due to Pain,Slow Progress due to Medical Issues,Slow Progress due to Activity Tolerance Assessment Summary Pt low complexity and here due to dyspnea and acute on chronic hypoxic respiratory failure. Pt's troponin .052 yesterday and .69 today 09/16 and nursing states it was okay to try to get the pt up today. In the past 2-3 months, pt's having to assist more for ADl needs and at times having to assist to get around the house by pushing him on his 4ww. Pt looking to have palliative consult tomorrow and hoping to go home when medically stable . Pt's will benefit form caregiver training and continued home health. Goals Grooming Goal Independent Dressing Goal Moderate Assistance Toileting Goal Moderate Assistance Bathing Goal Moderate Assistance Toilet Transfer Goal Standby Assistance Shower Transfer Goal Contact Guard Assistance Patient/Caregiver Education Goal Demonstrate Energy Conservation and Pacing, Caregiver Independent Assisting Patient Days to Meet Goals 5 Frequency of Treatment Frequency Of Treatment Once a Day Treatment Plan OT Treatment Plan ADL Training,Functional Cognition Training,Functional Mobility,Patient/Family Education,Discharge Planning Other Treatment Recommendations and Next Transfer to [facility] Treatment Focus Discharge Recommendations OT Discharge Recommendations Home with Assistance,Home Health Home Equipment Needs FWW, possibly hospital bed *Pt may need ambulance to get him into the house due to the multiple steps and not having completing doing steps in months. Transportation Needs at Discharge Stretcher/Ambulance
[2019-09-17 15:15] LABS: BUN Creatinine Ratio 25.6 (6-22); Blood Urea Nitrogen 41 mg/dL (9-20); Calcium 9.3 mg/dL (8.4-10.2); Carbon Dioxide 30 mmol/L (22-32); Chloride 100 mmol/L (98-107); Creatine Kinase 24 U/L (55-170); Estimated Glomerular Filt Rate 41.8 mL/min (>60); Glucose 100 mg/dL (80-110); HEMOLYSIS < 15 (0-50); Magnesium 2.4 mg/dL (1.6-2.3); Potassium 4.4 mmol/L (3.4-5.1); Sodium 135 mmol/L (137-145)
--- NOTE | 2019-09-17 15:56 | PT-IP ANOTE ---
Received PT orders and attempted to meet the pt for evaluation. Having just finished with OT, pt was too fatigued to participate. Will follow up morning of 09/17.
[2019-09-17 16:05] LABS: Troponin I 0.602 ng/mL (0.01-0.034)
[2019-09-17] MEDS: SENNOSIDES 8.6 MG TABLET 17.2 MG PO (21:24)
[2019-09-17] MEDS: HEPARIN 5,000 UNIT/ML VIAL 5000 UNIT SUBCUT (21:24)
[2019-09-17] MEDS: FINASTERIDE 5 MG TABLET PO (21:25)
[2019-09-18] VITALS: BP 122/66; PULSE 93; RESP 34; TEMP 36.1; O2SAT 95
[2019-09-18] MEDS: BISACODYL 10 MG SUPP PR (00:28)
[2019-09-18] MEDS: polyethylene glycoL 3350 17 GM POWD.PACK PO (00:30)
[2019-09-18] MEDS: FUROSEMIDE 40 MG/4 ML VIAL IV ×2 (01:45→08:45)
[2019-09-18] MEDS: SODIUM CHLORIDE 0.9% FLUSH 10 ML IV ×3 (01:45→20:55)
[2019-09-18 04:50] VITALS: BP 120/65; PULSE 88; RESP 22; TEMP 36.1; O2SAT 98
[2019-09-18 05:06] LABS: Add Manual Diff / Slide Review NO; Basophils Absolute Auto 0 /uL (0-100); Basophils Percent Auto 0.1 % (0-2); Eosinophils Absolute Auto 0 /uL (0-450); Eosinophils Percent Auto 0.5 % (2-4); Hematocrit 37.2 % (41-53); Hemoglobin 11.7 g/dL (13.5-17.5); Lymphocytes Absolute Auto 400 /uL (1100-4500); Lymphocytes Percent Auto 3.7 % (25-40); Mean Corpuscular HGB Conc 31.6 % (30-36); Mean Corpuscular Hemoglobin 31.7 PG (26-34); Mean Corpuscular Volume 100.6 fL (80-100); Monocytes Absolute Auto 800 /uL (0-900); Monocytes Percent Auto 7.4 % (3-14); Neutrophils Absolute Auto 9300 /uL (1500-7000); Neutrophils Percent Auto 88.3 % (50-75); Platelet Count 170 X10^3/uL (150-400); Red Blood Cell Count 3.69 X10^6/uL (4.5-5.9); Red Cell Distribution Width 16.6 % (11.6-14.8); White Blood Cell Count 10.5 X10^3/uL (4.5-11.0)
[2019-09-18 05:14] LABS: BUN Creatinine Ratio 25.6 (6-22); Blood Urea Nitrogen 41 mg/dL (9-20); Calcium 9.4 mg/dL (8.4-10.2); Carbon Dioxide 31 mmol/L (22-32); Chloride 100 mmol/L (98-107); Estimated Glomerular Filt Rate 41.8 mL/min (>60); Glucose 81 mg/dL (80-110); HEMOLYSIS < 15 (0-50); Magnesium 2.3 mg/dL (1.6-2.3); Potassium 3.8 mmol/L (3.4-5.1); Sodium 137 mmol/L (137-145)
[2019-09-18 05:22] LABS: NT-proBNP (BNP-Adult 18+) 7150 pg/mL (<450)
[2019-09-18 05:31] LABS: Troponin I 0.436 ng/mL (0.01-0.034)
[2019-09-18] MEDS: PANTOPRAZOLE 20 MG TABLET PO (06:00)
--- NOTE | 2019-09-18 06:34 | PC.NURSE ---
Night Note-Patient was able to have ex-large brown formed BM after receiving Ducolax suppository. Mechanical lift required to get to BSC, tolerated fair. Slept most of the night with his own Trilogy on, otherwise used 6L NC. Diuresed 750ml clear urine after 40mg IV Lasix given, scheduled dose. Denies back pain, Leonid drsg remains intact, turned Q2h.
[2019-09-18 08:00] VITALS: BP 118/63; PULSE 93; RESP 21; TEMP 36.4; O2SAT 98
[2019-09-18] MEDS: HEPARIN 5,000 UNIT/ML VIAL 5000 UNIT SUBCUT ×2 (08:42→20:55)
[2019-09-18] MEDS: LIDOCAINE PATCH 1 EACH ADH..PATCH 2 EACH TOP (08:42)
[2019-09-18] MEDS: DOCUSATE 100 MG CAPSULE PO ×2 (08:43→20:55)
[2019-09-18] MEDS: METOPROLOL ER 50 MG TABLET 100 MG PO (08:43)
[2019-09-18] MEDS: MULTIVITAMIN 1 TABLET 1 TAB PO (08:43)
[2019-09-18] MEDS: predniSONE 10 MG TABLET PO (08:43)
[2019-09-18] MEDS: POTASSIUM CHLORIDE 20 MEQ TAB 40 MEQ PO (08:43)
[2019-09-18] MEDS: methocarbamoL 500 MG TABLET 750 MG PO ×2 (08:43→18:08)
[2019-09-18] MEDS: MYCOPHENOLATE MOFETIL 500 MG TABLET 1000 MG PO ×2 (08:44→20:55)
[2019-09-18] MEDS: SILDENAFIL 20 MG TABLET PO ×3 (08:44→20:55)
[2019-09-18] MEDS: TERAZOSIN 5 MG CAPSULE PO (08:44)
[2019-09-18] MEDS: ACETAMINOPHEN 325 MG TABLET 650 MG PO ×2 (08:45→18:09)
--- NOTE | 2019-09-18 11:35 | OT.IP.TRT ---
Occupational Therapy Treatment Note M2 OT-IP Current Condition Start: 09/17/19 15:24 Freq: Status: Active Protocol: Document 09/17/19 15:25 [facility] (Rec: 09/17/19 16:10 [facility] [id number]) Occupational Therapy Current Condition Current Condition Evaluation Date 09/17/19 Treatment Diagnosis Dyspnea,acute and chronic hypoxic respiratory failure, decreased mobility Diagnosis Onset Date 09/16/19 M3 OT- IP Subjective and Pain Start: 09/17/19 15:24 Freq: Status: Active Protocol: Document 09/18/19 11:22 [facility] (Rec: 09/18/19 11:35 [facility] [id number]) OT- Subjective Occupational Therapy Visit Type Type Progress Note Visit Start Time 10:32 Visit Stop Time 11:19 Total Visit Minutes 47 Notes co-treat with P.T. OT Pain Assessment Pain When Pain Assessed During Mobility Pain Present Pain Present Pain Reported Location low back Scale Used did not rate but worse with movement Management Techniques Modification of Treatment, Timing of Activity with Medications M4 OT- IP ADL's Start: 09/17/19 15:24 Freq: Status: Active Protocol: Document 09/18/19 11:22 [facility] (Rec: 09/18/19 11:35 [facility] [id number]) OT [id number] Comments OT Self-Feeding Comments not meal time OT ADL-Grooming Comments OT Grooming Comments not performed OT ADL-Oral Care Comments Oral Care Comments not performed OT ADL-Dressing General Eval Lower Body Dressing Ability Total Assistance Areas Needing Assistance Socks Comments OT Dressing Comments supine in bed OT ADL-Toileting Comments OT Toileting Comments just performed with nursing prior to OT arrival. OT ADL-Bathing Comments OT Bathing Comments not appropriate at this time M5 OT- IP IADL's Start: 09/17/19 15:24 Freq: Status: Active Protocol: Document 09/17/19 15:25 [facility] (Rec: 09/17/19 16:10 [facility] [id number]) OT-Instrumental Activities of Daily Living Home Safety Awareness Awareness of Need for Assistance at Home Good Awareness Medication Management Medication Management Caregiver Administers Money Management Money Management Caregiver Provides Assistance Meal Preparation Meal Preparation Caregiver Provides Assist Senior Data Integration Developer Senior Data Integration Developer Caregiver Provides Assist Driving Driving Caregiver Provides Assist M6 OT- IP Functional Cognition Start: 09/17/19 15:24 Freq: Status: Active Protocol: Document 09/17/19 15:25 [facility] (Rec: 09/17/19 16:10 [facility] [id number]) Cognitive Factors Limiting Selfcare Function Cognitive Ability Level of Alertness Alert Patient Orientation Name,Place,Situation Attention Span Ability Capable of Focused Attention, Capable of Sustained Attention Ability to Follow Commands Able to Follow One Step Commands Memory Description Short Term Impaired Cognitive Comments Cognitive Assessment Comments Pt needign lots of encouragement and simple comands to follow. Pt needing extra time to complete commands mainly due to being tired and SOB. Pt blames having not slept well and being on O2 that he is not remembering or thinking well today. OT- Vision and Hearing OT- Hearing Assessment OT- Hearing Assessment WFL OT- Vision Assessment Visual Acuity Glasses For Reading M7 OT- IP Mobility and Balance Start: 09/17/19 15:24 Freq: Status: Active Protocol: Document 09/18/19 11:22 [facility] (Rec: 09/18/19 11:35 [facility] [id number]) OT- Bed Mobility Assessment Rolling Type of Rolling Roll to Left Level of Assistance Maximum Assistance,2 Person Assistance,Head of Bed Elevated,Bedrails Supine to Sit Supine to Sit Assist Maximum Assistance,2 Person Assistance,Head of Bed Elevated,Bedrails Scooting Scooting to Edge of Bed Maximum Assistance,2 Person Assistance,Head of Bed Elevated,Bedrails OT-Transfer Assessment Sit to and From Stand Sit to and from Stand Minimal Assistance Transfers Transfer Ability Minimal Assistance Technique Transfer Destination Bed,Chair Transfer Technique Stand Step Pivot Devices Transfer Assistive Devices Gait Belt,Front Wheeled Walker Comments Mobility Comments with 2 person assist d/t bed mobility. Pt with poor oxygenation and needs 10-12 L via NC prior to movement. OT- Gait Assessment Comments Gait Ability Comments did not occur OT- Balance Assessment Sitting Balance and Reactions Static Sitting Balance Ability Good M8 OT- IP Objective Assessments Start: 09/17/19 15:24 Freq: Status: Active Protocol: Document 09/17/19 15:25 [facility] (Rec: 09/17/19 16:10 [facility] [id number]) OT Gross Range of Motion Upper Extremity Range of Motion Assessment Within Functional Limits OT Strength Comments Strength Comments 4/5 for BUE OT-Muscle Tone Assessment Muscle Tone WNL Yes M9 OT- IP Assessment and Plan Start: 09/17/19 15:24 Freq: Status: Active Protocol: Document 09/18/19 11:22 [facility] (Rec: 09/18/19 11:35 [facility] [id number]) OT Summary Assessment and Plan Potential Rehabilitation Potential Good Analytic Complexity at Evaluation Low Summary OT Impairments Pain,Strength,Balance, Functional Mobility,Grooming, Dressing,Toileting,Bathing, Toilet Transfers,Shower Transfers,Activity Tolerance Progress Towards Goals Slow Progress due to Pain,Slow Progress due to Medical Issues,Slow Progress due to Activity Tolerance Assessment Summary Pt presents with very limited respiratory or mobility and anxiety which appears to be impacing his mobility. Pt tranfered to chair with min a after bed mobility with max x 2. Pt upon reaching chair complains of SOB, dizziness, and feelings of anxiety. Pt was distracted via story telling as asking him questions about his family and the anxiety type feelings passed but pt needed signifiance recoup time to get his O2 stats back up above 90 . Nursing entered and stated that they would change his O2 method if he didn't recoup in another few minutes. Discussed case for anxiety medications with nursing and pt and educated pt on ideas to help control his anxiety. Goals Grooming Goal Independent Dressing Goal Moderate Assistance Toileting Goal Moderate Assistance Bathing Goal Moderate Assistance Toilet Transfer Goal Standby Assistance Shower Transfer Goal Contact Guard Assistance Patient/Caregiver Education Goal Demonstrate Energy Conservation and Pacing, Caregiver Independent Assisting Patient Days to Meet Goals 5 Frequency of Treatment Frequency Of Treatment Once a Day Treatment Plan OT Treatment Plan ADL Training,Functional Cognition Training,Functional Mobility,Patient/Family Education,Discharge Planning Other Treatment Recommendations and Next [place] [facility] [place] Discharge Recommendations OT Discharge Recommendations Home with Assistance,Home Health Home Equipment Needs FWW, possibly hospital bed *Pt may need ambulance to get him into the house due to the mutilple steps and not having completing doing steps in months. Transportation Needs at Discharge Stretcher/Ambulance
[2019-09-18 11:50] VITALS: BP 109/61; PULSE 98; RESP 22; TEMP 36.9; O2SAT 96
--- NOTE | 2019-09-18 11:52 | PT.IIE ---
Current Diagnoses Acute and chronic respiratory failure with hypoxia (09/16/19) Surgical History (Last Reviewed 09/16/19 @ 18:05 by Reina Zuluaga MD) AICD (automatic cardioverter/defibrillator) present (Acute) Aortic valve replaced (Acute) History of appendectomy (Acute) History of bladder surgery (Acute) History of cholecystectomy (Acute) History of esophagogastroduodenoscopy (EGD) (Acute) History of lung biopsy (Acute) Medical History (Last Reviewed 09/16/19 @ 18:05 by Reina Zuluaga MD) Anemia (Acute) Chronic kidney failure (Acute) History of atrial fibrillation (Acute) History of scleroderma (Acute) Hypertension (Acute) ILD (interstitial lung disease) (Acute) Non-STEMI (non-ST elevated myocardial infarction) (Acute) Pulmonary fibrosis (Acute) Valvular heart disease (Acute) Physical Therapy Inpatient Evaluation/Re-Eval M1 PT/OT-IP Prior Functional Status Start: 09/17/19 15:24 Freq: NEEDED Status: Active Protocol: Document 09/17/19 15:25 [facility] (Rec: 09/17/19 16:10 [facility] [id number]) Medical Review Prior Functional Status Medical History Reviewed Yes Communication Independent Mobility and Gait Pt prior use of 4WW to get to the bathroom and however at times having to stop half way to sit and rest on the 4WW. Pt states the bathroom is 25ft awayy from his recliner. Activities of Daily Living and IADL's Mainly pt just able to eat, put on his shirt, and do grooming from the toilet on his own. Otherwise in the past 3 month pt's has progressively been doing more to assist with ADl needs or at times will have to push him on his 4WW to get to the bathroom if not able to walk all the way , in addition thsy have a WC at home. Social History Household Members spouse Living Arrangements House Number of Floors (Floors) One Floor Number of Stairs To Enter/Railing? Pt has a flight on stairs the basement however he dos not use the basement at all at this time. Pt states last time he had to enter the house was months ago and not able to make it in all the way into the house. Pt has 8 concrete steps which the first initial ones are able to fit the 4ww on the steps and afterwards not wide enough to fit the 4WW on the step. Then pt has 4 steps with one hand rail to get into the house. Home Environment Standard Height Toilet,Walk in Shower Home Equipment Four Wheel Walker,Manual Wheelchair,Shower Seat with Backrest,Grab Bars In Shower M1 PT/OT-IP Prior Functional Status Start: 09/18/19 08:53 Freq: NEEDED Status: Active Protocol: Document 09/18/19 11:26 (Rec: 09/18/19 11:51 [email or web address]) Medical Review Prior Functional Status Medical History Reviewed Yes Communication Independent Mobility and Gait Pt prior use of 4WW to get to the bathroom and however at times having to stop half way to sit and rest on the 4WW. Pt states the bathroom is 25ft awayy from his recliner. Activities of Daily Living and IADL's Mainly pt just able to eat, put on his shirt, and do grooming from the toilet on his own. Otherwise in the past 3 month pt's has progressively been doing more to assist with ADl needs or at times will have to push him on his 4WW to get to the bathroom if not able to walk all the way , in addition thsy have a WC at home. Prior Functional Level (Other details) pt only sleeps in his recliner . Social History Household Members spouse Living Arrangements House Number of Floors (Floors) One Floor Number of Stairs To Enter/Railing? Pt has a flight on stairs the basement however he dos not use the basement at all at this time. Pt states last time he had to enter the house was months ago and not able to make it in all the way into the house. Pt has 8 concrete steps which the first initial ones are able to fit the 4ww on the steps and afterwards not wide enough to fit the 4WW on the step. Then pt has 4 steps with one hand rail to get into the house. Home Environment Standard Height Toilet,Walk in Shower Home Equipment Four Wheel Walker,Manual Wheelchair,Shower Seat with Backrest,Grab Bars In Shower Employment Status Retired M2 PT-IP Current Condition Start: 09/18/19 08:53 Freq: NEEDED Status: Active Protocol: Document 09/18/19 11:26 (Rec: 09/18/19 11:51 [email or web address]) Physical Therapy Current Condition Current Condition Evaluation Date 09/18/19 Treatment Diagnosis Dyspnea, acute & chronic respiratory failure, generalized weakness Onset Date 09/16/19 Weight Bearing Status Weight Bearing Status Full Weight Bearing M3 PT-IP Subjective Start: 09/18/19 08:53 Freq: NEEDED Status: Active Protocol: Document 09/18/19 11:26 (Rec: 09/18/19 11:51 [email or web address]) Subjective Physical Therapy Visit Type Type Initial Evaluation Visit Start Time 10:24 Visit Stop Time 11:00 Total Visit Minutes 36 Notes co-tx with OT CJ Number of GOLD BURNISHER Visits 0 Physical Therapy Visit Comments Patient Comments Im feeling a little better today. Patient Goals Pt is not sure if he can go home d/t his very compromised cardiopulmonary system Therapy Pain Assessment Pain Present Pain Present Pain Reported Location low back Intensity 6 Scale Used Numeric (0 - 10) Description Aching Pain Behaviors Calling Out,Facial Grimacing M4 PT-IP Mobility and Gait Start: 09/18/19 08:53 Freq: NEEDED Status: Active Protocol: Document 09/18/19 11:26 (Rec: 09/18/19 11:51 [id number]) PT-Bed Mobility Assessment Supine to Sit Supine to Sit Maximum Assistance,2 Person Assistance,Head of Bed Elevated Scooting Scooting to Edge of Bed Moderate Assistance PT-Transfer Assessment Sit to and From Stand Sit to and from Stand Minimal Assistance,1 Person Assistance,Use of Upper Extremities Equipment Transfer Assistive Device Gait Belt,Front Wheeled Walker Orthotic/Prosthetic Devices or Brace: No Transfers Transfer Destination Bed,Chair Transfer Technique Stand Step Pivot Transfer Ability Level of Assist Minimal Assistance,1 Person Assistance,Use of Upper Extremities Comments Mobility Comments Pt was in bed with elevated HOB at 20degrees upon PT and OT arrival. With 10L high flow O2 via NC. SpO2 at 99%. Pt agreed to attempt transfer to chair with therapists. This PT noticed pt has some swelling at both heels and pt stated thats common for him. Pt was able to walk his LEs slowly to the EOB on L side but needed max A x 2 for supine to sit from elevated head of bed. Pt then sat at EOB with UEs on bed frame for support and presented increased SOB and SpO2 went down to 84%. It went back to 86-88% after supported seating for 6 mins. He was able to stand up with min A x 1 and took small stand step pivot towards his L side with FWW and sat down to bedside chair with pillows as cushions for buttocks and low back d/t his multiple bed sores. Pt then c/o ligtheadiness and SOB who's HR at >120s and SpO2 at 78%. Educated pt to calm down and practiced pursed lip breathing and his SpO2 went back to 84% after 6 minutes. Proceed to increased high flow O2 to 12 L and pt took approx 12 mins to reach 88 %. However, pt was able to converse with therapists in complete sentences and stated his symptoms were getting better. Pt did state he has anxiety and needs reassurance and medication often to help. This PT left pt in chair after he was stabilized and OT CJ cont to stay with pt in his room for anxiety management. Gait Assessment Comments Gait Comments did not assess d/t unstable vital signs Stair Climbing Assessment Comments Stair Climbing Comments did not assess d/t unstable vital signs PT-Balance Assessment Sitting Balance and Reactions Static Sitting Balance Ability Good Dynamic Sitting Balance Ability Good Standing Balance and Reactions Static Standing Balance Ability Good Dynamic Standing Balance Ability Fair Device Used fWW M5 PT-IP Objective Assessments Start: 09/18/19 08:53 Freq: NEEDED Status: Active Protocol: Document 09/18/19 11:26 (Rec: 09/18/19 11:51 [id number]) Orientation Orientation/Cognition Level of Alertness Alert Orientation Name,Age,Birthday,Month,Date, Year,Day of Week,Place, Situation Language Function Ability No Deficits Noted Safety Awareness Understands Safety Issues Memory Description No Deficits Noted Gross Range of Motion Upper Extremity ROM Assessment Within Functional Limits Lower Extremity ROM Assessment Within Functional Limits Strength Upper Extremity Strength Assessment Within Functional Limits Lower Extremity Strength Assessment Within Functional Limits Coordination Assessment Gross Coordination Gross Coordination WNL M6 PT-IP Treatment Start: 09/18/19 08:53 Freq: NEEDED Status: Active Protocol: Document 09/18/19 11:26 (Rec: 09/18/19 11:51 [email or web address]) Physical Therapy Treatment Education Education Provided Safety M7 PT-IP Assessment and Plan Start: 09/18/19 08:53 Freq: NEEDED Status: Active Protocol: Document 09/18/19 11:26 (Rec: 09/18/19 11:51 [facility] [email or web address]) PT Summary Assessment and Plan Potential Rehabilitation Potential Fair Status of Condition at Evaluation Evolving Summary Impairments Pain,ROM,Strength,Balance,Bed Mobility,Transfers,Gait, Activity Tolerance Assessment Summary This is high complexity evaluation for this 79 yo gentleman admitted to for dyspnea, acute & chronic respiratory failure, generalized weakness. Pt has very limited PLOF who is mostly chair bound and needs his to assist for ADLs and IADLs d/t his poor cardiopulmonary condition. Upon assessment, pt's SpO2 went down to 78% during chair transfer and required close to 15 minutes to reach 88% with 12L high flow O2/min via NC. Pt also stated he is very anxious about mobility d/t his complicated medical condition . He mentioned he was not sure if he was able to complete those steps in front of his house anymore. In my professional opinion, pt requires extensive skilled care d/t his very poor activity tolerance, along with his complicated /unstable medical condition. [facility] will be an ideal option for him. However, home health might be an option if pt insists to go home. pt will also have a palliative consult later this pm. Goals Bed Mobility Goal Contact Guard Assistance Transfer Goal Contact Guard Assistance,Front Wheeled Walker,Four Wheeled Walker Gait Goal Contact Guard Assistance,Front Wheel Walker,Four Wheel Walker Gait Distance 10 Other Goals up to bathroom/ BSC with CGA/ min A Days to Meet Goals 10 Frequency of Treatment Frequency Of Treatment Once a Day Treatment Plan Physical Therapy Treatment Plan Bed Mobility Training,Transfer Training,Gait Training, Therapeutic Exercise,Balance Retraining,Discharge Planning, Hot or Cold Pack,Neuromuscular Re-ed Other Recommendations and Next Treatment check vital signs constantly Focus mobility as [place] d/c planning with SW. pt might go for palliative care Recommendations To Nursing Amount of Assist Needed 2 Person Assist Discharge Recommendations PT Discharge Recommendations Home with Assistance,Home Health,SNF Rehab Other Discharge Recommendations [facility] will be an ideal option for him. However, home health might be an option if pt insists to go home. pt will also have a palliative consult later this pm. Transportation Needs at Discharge Wheelchair/Cabulance
--- NOTE | 2019-09-18 11:56 | PT.IIE ---
Current Diagnoses Acute and chronic respiratory failure with hypoxia (09/16/19) Surgical History (Last Reviewed 09/16/19 @ 18:05 by Reina Zuluaga MD) AICD (automatic cardioverter/defibrillator) present (Acute) Aortic valve replaced (Acute) History of appendectomy (Acute) History of bladder surgery (Acute) History of cholecystectomy (Acute) History of esophagogastroduodenoscopy (EGD) (Acute) History of lung biopsy (Acute) Medical History (Last Reviewed 09/16/19 @ 18:05 by Reina Zuluaga MD) Anemia (Acute) Chronic kidney failure (Acute) History of atrial fibrillation (Acute) History of scleroderma (Acute) Hypertension (Acute) ILD (interstitial lung disease) (Acute) Non-STEMI (non-ST elevated myocardial infarction) (Acute) Pulmonary fibrosis (Acute) Valvular heart disease (Acute) Physical Therapy Inpatient Evaluation/Re-Eval M1 PT/OT-IP Prior Functional Status Start: 09/17/19 15:24 Freq: NEEDED Status: Active Protocol: Document 09/17/19 15:25 [facility] (Rec: 09/17/19 16:10 [facility] [id number]) Medical Review Prior Functional Status Medical History Reviewed Yes Communication Independent Mobility and Gait Pt prior use of 4WW to get to the bathroom and however at times having to stop half way to sit and rest on the 4WW. Pt states the bathroom is 25ft awayy from his recliner. Activities of Daily Living and IADL's Mainly pt just able to eat, put on his shirt, and do grooming from the toilet on his own. Otherwise in the past 3 month pt's has progressively been doing more to assist with ADl needs or at times will have to push him on his 4WW to get to the bathroom if not able to walk all the way , in addition thsy have a WC at home. Social History Household Members spouse Living Arrangements House Number of Floors (Floors) One Floor Number of Stairs To Enter/Railing? Pt has a flight on stairs the basement however he dos not use the basement at all at this time. Pt states last time he had to enter the house was months ago and not able to make it in all the way into the house. Pt has 8 concrete steps which the first initial ones are able to fit the 4ww on the steps and afterwards not wide enough to fit the 4WW on the step. Then pt has 4 steps with one hand rail to get into the house. Home Environment Standard Height Toilet,Walk in Shower Home Equipment Four Wheel Walker,Manual Wheelchair,Shower Seat with Backrest,Grab Bars In Shower M1 PT/OT-IP Prior Functional Status Start: 09/18/19 08:53 Freq: NEEDED Status: Active Protocol: Document 09/18/19 11:26 (Rec: 09/18/19 11:51 [email or web address]) Medical Review Prior Functional Status Medical History Reviewed Yes Communication Independent Mobility and Gait Pt prior use of 4WW to get to the bathroom and however at times having to stop half way to sit and rest on the 4WW. Pt states the bathroom is 25ft awayy from his recliner. Activities of Daily Living and IADL's Mainly pt just able to eat, put on his shirt, and do grooming from the toilet on his own. Otherwise in the past 3 month pt's has progressively been doing more to assist with ADl needs or at times will have to push him on his 4WW to get to the bathroom if not able to walk all the way , in addition thsy have a WC at home. Prior Functional Level (Other details) pt only sleeps in his recliner . Social History Household Members spouse Living Arrangements House Number of Floors (Floors) One Floor Number of Stairs To Enter/Railing? Pt has a flight on stairs the basement however he dos not use the basement at all at this time. Pt states last time he had to enter the house was months ago and not able to make it in all the way into the house. Pt has 8 concrete steps which the first initial ones are able to fit the 4ww on the steps and afterwards not wide enough to fit the 4WW on the step. Then pt has 4 steps with one hand rail to get into the house. Home Environment Standard Height Toilet,Walk in Shower Home Equipment Four Wheel Walker,Manual Wheelchair,Shower Seat with Backrest,Grab Bars In Shower Employment Status Retired M2 PT-IP Current Condition Start: 09/18/19 08:53 Freq: NEEDED Status: Active Protocol: Document 09/18/19 11:26 (Rec: 09/18/19 11:51 [email or web address]) Physical Therapy Current Condition Current Condition Evaluation Date 09/18/19 Treatment Diagnosis Dyspnea, acute & chronic respiratory failure, generalized weakness Onset Date 09/16/19 Weight Bearing Status Weight Bearing Status Full Weight Bearing M3 PT-IP Subjective Start: 09/18/19 08:53 Freq: NEEDED Status: Active Protocol: Document 09/18/19 11:26 (Rec: 09/18/19 11:51 [email or web address]) Subjective Physical Therapy Visit Type Type Initial Evaluation Visit Start Time 10:24 Visit Stop Time 11:00 Total Visit Minutes 36 Notes co-tx with OT CJ Number of DUCT LAYER Visits 0 Physical Therapy Visit Comments Patient Comments Im feeling a little better today. Patient Goals Pt is not sure if he can go home d/t his very compromised cardiopulmonary system Therapy Pain Assessment Pain Present Pain Present Pain Reported Location low back Intensity 6 Scale Used Numeric (0 - 10) Description Aching Pain Behaviors Calling Out,Facial Grimacing M4 PT-IP Mobility and Gait Start: 09/18/19 08:53 Freq: NEEDED Status: Active Protocol: Document 09/18/19 11:26 (Rec: 09/18/19 11:51 [id number]) PT-Bed Mobility Assessment Supine to Sit Supine to Sit Maximum Assistance,2 Person Assistance,Head of Bed Elevated Scooting Scooting to Edge of Bed Moderate Assistance PT-Transfer Assessment Sit to and From Stand Sit to and from Stand Minimal Assistance,1 Person Assistance,Use of Upper Extremities Equipment Transfer Assistive Device Gait Belt,Front Wheeled Walker Orthotic/Prosthetic Devices or Brace: No Transfers Transfer Destination Bed,Chair Transfer Technique Stand Step Pivot Transfer Ability Level of Assist Minimal Assistance,1 Person Assistance,Use of Upper Extremities Comments Mobility Comments Pt was in bed with elevated HOB at 20degrees upon PT and OT arrival. With 10L high flow O2 via NC. SpO2 at 99%. Pt agreed to attempt transfer to chair with therapists. This PT noticed pt has some swelling at both heels and pt stated thats common for him. Pt was able to walk his LEs slowly to the EOB on L side but needed max A x 2 for supine to sit from elevated head of bed. Pt then sat at EOB with UEs on bed frame for support and presented increased SOB and SpO2 went down to 84%. It went back to 86-88% after supported seating for 6 mins. He was able to stand up with min A x 1 and took small stand step pivot towards his L side with FWW and sat down to bedside chair with pillows as cushions for buttocks and low back d/t his multiple bed sores. Pt then c/o ligtheadiness and SOB who's HR at >120s and SpO2 at 78%. Educated pt to calm down and practiced pursed lip breathing and his SpO2 went back to 84% after 6 minutes. Proceed to increased high flow O2 to 12 L and pt took approx 12 mins to reach 88 %. However, pt was able to converse with therapists in complete sentences and stated his symptoms were getting better. Pt did state he has anxiety and needs reassurance and medication often to help. This PT left pt in chair after he was stabilized and OT CJ cont to stay with pt in his room for anxiety management. Gait Assessment Comments Gait Comments did not assess d/t unstable vital signs Stair Climbing Assessment Comments Stair Climbing Comments did not assess d/t unstable vital signs PT-Balance Assessment Sitting Balance and Reactions Static Sitting Balance Ability Good Dynamic Sitting Balance Ability Good Standing Balance and Reactions Static Standing Balance Ability Good Dynamic Standing Balance Ability Fair Device Used fWW M5 PT-IP Objective Assessments Start: 09/18/19 08:53 Freq: NEEDED Status: Active Protocol: Document 09/18/19 11:26 (Rec: 09/18/19 11:51 [email or web address]) Orientation Orientation/Cognition Level of Alertness Alert Orientation Name,Age,Birthday,Month,Date, Year,Day of Week,Place, Situation Language Function Ability No Deficits Noted Safety Awareness Understands Safety Issues Memory Description No Deficits Noted Gross Range of Motion Upper Extremity ROM Assessment Within Functional Limits Lower Extremity ROM Assessment Within Functional Limits Strength Upper Extremity Strength Assessment Within Functional Limits Lower Extremity Strength Assessment Within Functional Limits Coordination Assessment Gross Coordination Gross Coordination WNL M6 PT-IP Treatment Start: 09/18/19 08:53 Freq: NEEDED Status: Active Protocol: Document 09/18/19 11:26 (Rec: 09/18/19 11:51 [email or web address]) Physical Therapy Treatment Education Education Provided Safety M7 PT-IP Assessment and Plan Start: 09/18/19 08:53 Freq: NEEDED Status: Active Protocol: Document 09/18/19 11:26 (Rec: 09/18/19 11:51 [facility] [email or web address]) PT Summary Assessment and Plan Potential Rehabilitation Potential Fair Status of Condition at Evaluation Evolving Summary Impairments Pain,ROM,Strength,Balance,Bed Mobility,Transfers,Gait, Activity Tolerance Assessment Summary This is high complexity evaluation for this 79 yo gentleman admitted to for dyspnea, acute & chronic respiratory failure, generalized weakness. Pt has very limited PLOF who is mostly chair bound and needs his to assist for ADLs and IADLs d/t his poor respiratory condition. Upon assessment, pt's SpO2 went down to 78% during chair transfer and required close to 15 minutes to reach 88% with 12L high flow O2/min via NC. Pt also stated he is very anxious about mobility d/t his complicated medical condition . He mentioned he was not sure if he was able to complete those steps in front of his house anymore who might need ambulance to assist to get into the house. In my professional opinion, pt requires extensive skilled care d/t his very poor activity tolerance, along with his complicated /unstable medical condition. custodial will be an ideal option for him. However, home health might be an option if pt insists to go home. pt will also have a palliative consult later this pm. Goals Bed Mobility Goal Contact Guard Assistance Transfer Goal Contact Guard Assistance,Front Wheeled Walker,Four Wheeled Walker Gait Goal Contact Guard Assistance,Front Wheel Walker,Four Wheel Walker Gait Distance 10 Other Goals up to bathroom/ BSC with CGA/ min A Days to Meet Goals 10 Frequency of Treatment Frequency Of Treatment Once a Day Treatment Plan Physical Therapy Treatment Plan Bed Mobility Training,Transfer Training,Gait Training, Therapeutic Exercise,Balance Retraining,Discharge Planning, Hot or Cold Pack,Neuromuscular Re-ed Other Recommendations and Next Treatment check vital signs constantly Focus mobility as [place] d/c planning with SW. pt might go for palliative care Recommendations To Nursing Amount of Assist Needed 2 Person Assist Discharge Recommendations PT Discharge Recommendations Home with Assistance,Home Health,SNF Rehab Other Discharge Recommendations custodial will be an ideal option for him. However, home health might be an option if pt insists to go home. pt will also have a palliative consult later this pm. Equipment Needed for Home Before FWW for mobility if he goes Discharge home Might need ambulance to get pt into the house Transportation Needs at Discharge Stretcher/Ambulance
--- NOTE | 2019-09-18 13:10 | CM.DPC ---
Addendum entered by Jael Umana R.N. 09/18/19 15:22: Khushbu Burleson is here to see patient. Gave her update, and let her know that if patient needs shelter, or if he is requesting, he has that option. Original Note: DCP Cont: Spoke to P.T, due to weakness, recommending shelter. [facility] home [facility] resumption is other alternative. Patient is weak during transfers. Khushbu Burleson, [facility], is expected to be here at 1500 for palliative care conference. Called Ashley over at [facility] to inquire if they have male beds. Confirmed that they do. Will have July review in case this is what patient will need. He would qualify for skilled stay tomorrow. P: DCP to continue to follow. Patient will either go home and resume [facility], or need skilled. Will make an attempt to meet with patient and today. Jael Umana RN/Data Analysis Manager
--- NOTE | 2019-09-18 14:10 | PM.CN.PC.1 ---
History of Present Illness Consult details Date Patient Seen: 09/18/19 Time Patient Seen: 15:11 Chief complaint: SOB Reason for consult: Palliative medicine consultation Requesting provider: Reina Zuluaga Narrative: Palliative medicine consultation requested on this very frail, elderly gentleman, Mr. Donn Funez, by Dr. Zuluaga for the purposes of advanced care planning. Patient has a significant history of interstitial lung disease with pulmonary fibrosis, scleroderma, chronic anticoagulation for atrial fibrillation, chronic kidney disease. Patient has been experiencing an increase in his shortness of breath, on a baseline of 6 L of oxygen at home but requiring up to 10 L of oxygen or more with activity over the past month. Patient also endorsed an increase in the edema in his lower extremities over the past month or so. He has been unable to sleep in his bed due to orthopnea, preferring to be in his recliner. Upon arrival to the emergency department, patient denied shortness of breath. Patient was noted to have a normal rate between 199-205 lb, and his weight on his arrival to the emergency department was 220 lb. Workup indicates patient has acute exacerbation of congestive heart failure, as evidenced by his proBNP >5900 and his chest x-ray revealing of interstitial findings. He was admitted to the medical floor for evaluation of acute on chronic respiratory failure and exacerbation of congestive heart failure. He was approached on admission about a palliative medicine consultation regarding goals of care. Physical therapy has recommended that the patient consider group home for aggressive, rehabilitative efforts. Past medical history: Reviewed with patient. History of pulmonary fibrosis with interstitial lung disease, chronic kidney disease, AICD, aortic valve replacement, anemia, NSTEMI, CKD, CHF, UTI, symptomatic anemia, exertional dyspnea. Social history: Patient and his Michelle and have been for 23 years. This is the 2nd union. He is originally from [facility]. He has 3 children from a previous marriage, daughter Scarlet is aged 50, son Gil, and son Brian. Michelle and has 4 children of her own, 1 that lives here locally in [facility]. The couple have no children together. 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 He relocated to [facility] in long-term. He was initially diagnosed with interstitial lung disease in the when he experiences shortness of breath and was sent to a lighting technician. At that time, he was given 5 years prognosis which was understandably upsetting to he and his family. One of his sons found a study with a medication combination of cyclophosphomide and prednisone with exercise from [place] that had good results. Patient discuss this with his lighting technician and embarked on this regimen, with very good results. He states that his follow-up pulmonary function tests were normal, and that his lighting technician wanted to know exactly what he had done to improve his condition. This regimen he states put his interstitial lung disease in remission for 30 years. Patient states his feeling that he has had very good time, and that he has been living on which she terms as borrowed time all of this time. Up until recently, he feels that his condition was stable. Over the past 3-4 months however, patient has been experiencing excruciating back pain that has put him in a recliner for up to 24 hours per day. He has been reliant on a walker for mobility and has noticed that his oxygen needs have increased significantly, up to 6 L when exercising. Meds Home Medications and Allergies Home Medications Medication Instructions Recorded Confirmed Type sildenafil (pulm.hypertension) 20 mg PO TID #0 11/14/16 09/16/19 History [Revatio] calcium carbonate-vitamin D3 1 cap PO QDAY #0 02/22/17 09/16/19 History [Calcium 600 with Vitamin D3] finasteride 5 mg PO QDAY #0 02/22/17 09/16/19 History multivitamin [Multiple Vitamins] 1 tab PO QDAY #0 02/22/17 09/16/19 History terazosin 5 mg PO HS #0 02/23/17 09/16/19 History prednisone 10 mg PO AMCC #0 05/19/17 09/16/19 History acetaminophen 650 mg PO Q6H 09/16/19 09/16/19 History methocarbamol 750 mg PO PRN PRN 09/16/19 09/16/19 History mycophenolate mofetil 1,000 mg PO BID 09/16/19 09/16/19 History acetaminophen 650 mg PO Q6HR PRN #30 tab 09/21/19 Rx bisacodyl 10 mg IA DAILY PRN #10 ea 09/21/19 Rx diltiazem HCl 120 mg PO DAILY #30 cap 09/21/19 Rx docusate sodium [DOK] 100 mg PO BID #60 cap 09/21/19 Rx furosemide 60 mg PO BID #60 tab 09/21/19 09/16/19 Rx lidocaine 2 ea TOPICAL DAILY #10 ea 09/21/19 Rx lorazepam 0.5 mg PO Q6H PRN #30 ml 09/21/19 Rx metoprolol succinate 50 mg PO DAILY #30 tab 09/21/19 Rx morphine 20 mg PO Q6H PRN #100 ml 09/21/19 Rx ondansetron HCl [Zofran] 4 mg PO Q8H PRN #20 tab 09/21/19 Rx polyethylene glycol 3350 17 gm PO DAILY #30 ea 09/21/19 Rx potassium chloride 40 meq PO BIDCC #0 tab 09/21/19 09/16/19 Rx scopolamine base 1 patch TRANSDERMAL Q3D PRN #10 09/21/19 Rx each sennosides [senna] 17.2 mg PO BEDTIME #30 tab 09/21/19 Rx Allergies Allergy/AdvReac Type Severity Reaction Status Date / Time codeine [CODEINE] Allergy Unknown Verified 09/16/19 12:32 Review of Systems Constitutional Constitutional: Reports as per HPI Exam Vital Signs (past 8 hours): - 09/18/19 08:00 09/18/19 11:50 Temperature 97.6 F 98.4 F Pulse Rate 93 H 98 H Respiratory Rate 21 22 Blood Pressure 118/63 109/61 Pulse Oximetry 98 96 Fraction of Inspired Oxygen 30 Oxygen Delivery Method Nasal Cannula Oxygen Flow Rate 10 Narrative Exam Narrative: 79-year-old gentleman is visited at bedside today, of 23 years is also at bedside. Patient denies pain currently, denies shortness of breath. Const General: cooperative, well groomed and ill appearing (Chronically) Orientation: alert, awake and oriented x3 Resp Effort & Inspection: normal respiratory effort and able to speak in complete sentences Neuro General: patient alert, patient awake and patient oriented x3 Psych Appearance: grossly normal Mental Status: mental status grossly normal Speech and Movement: speech and movement normal Mood: congruent mood Affect: normal affect Attitude: cooperative Thought Process: normal Thought Content: normal Judgment: judgment good Objective Labs Result Diagrams: 09/19/19 04:30 09/21/19 05:28 Labs: Laboratory Results - last 24 hr 09/17/19 09/17/19 09/18/19 14:30 14:30 04:40 WBC 10.5 RBC 3.69 L Hgb 11.7 L Hct 37.2 L MCV 100.6 H MCH 31.7 MCHC 31.6 RDW 16.6 H Plt Count 170 Neut % (Auto) 88.3 H Lymph % (Auto) 3.7 L [place] % (Auto) 7.4 Eos % (Auto) 0.5 L Baso % (Auto) 0.1 Neut # (Auto) 9300 H Lymph # (Auto) 400 L [place] # (Auto) 800 Eos # (Auto) 0 Baso # (Auto) 0 Sodium 135 L Potassium 4.4 Chloride 100 Carbon Dioxide 30 BUN 41 H Creatinine 1.60 H Estimated GFR 41.8 L BUN/Creatinine Ratio 25.6 H Glucose 100 Calcium 9.3 Magnesium 2.4 H Total Creatine Kinase 24 L CK-MB (CK-2) TNP CK-MB (CK-2) Rel Index TNP Troponin I 0.602 H* NT-Pro-B Natriuret Pep 09/18/19 04:40 WBC RBC Hgb Hct MCV MCH MCHC RDW Plt Count Neut % (Auto) Lymph % (Auto) [place] % (Auto) Eos % (Auto) Baso % (Auto) Neut # (Auto) Lymph # (Auto) [place] # (Auto) Eos # (Auto) Baso # (Auto) Sodium 137 Potassium 3.8 Chloride 100 Carbon Dioxide 31 BUN 41 H Creatinine 1.60 H Estimated GFR 41.8 L BUN/Creatinine Ratio 25.6 H Glucose 81 Calcium 9.4 Magnesium 2.3 Total Creatine Kinase CK-MB (CK-2) CK-MB (CK-2) Rel Index Troponin I 0.436 H* NT-Pro-B Natriuret Pep 7150 H Assessment & Recommendations A & R narrative: Discussion: Met with patient at bedside, reviewed past medical history, current medical course. Patient and his have good insight into the patient's past medical issues, and seem accepting of his poor long-term prognosis. Discussion regarding goals of care. Patient wishes to avoid resuscitation, has a [facility] POLST in place. Brief discussion regarding the possibility of engaging hospice from a community-based hospice agency. Hospice Medicare benefit is reviewed. Patient is very interested in learning more about hospice, understands that PT has recommended that he undergo some physical therapy. He and his will discuss his options for discharge with her children and contact vp digital marketing social media and crm regarding their decision, but would like a hospice evaluation to learn more about this program. Discussed shannon, of this palliative medicine consultation with Dr. Kinsey and the vp digital marketing social media and crm team. Impression: -acute on chronic respiratory failure -interstitial lung disease -congestive heart failure -poor activity tolerance Coding: To remain informed regarding current treatment opportunities, provider reviewed extensive additional documentation of multiple treatment providers/facilities which was utilized to update the management plan. Total time in review of additional medical information is 12 minutes, external to in person evaluation. Time in assessment and management of acute and chronic medical diagnoses, pertinent history to palliative medicine decision making, discussion and management of clinical findings enumerated above as well as fears regarding the transition to a more end of life plan and and dying is 22 minutes, more than half of which is necessary for education and counseling. Advanced Care Planning discussion time is 15 minutes. The patient currently has testamentary documents for estate planning, DPOA[facility], has POLST and statement of wishes. Dialogue addresses patient preferences at the end/near end of life including resuscitation wishes (no CPR, DNAR). Additional care limits discussed above.
--- NOTE | 2019-09-18 14:39 | PM.PN.1 ---
Subjective Subjective Date Patient Seen: 09/18/19 Interval history: Donn Funez is an 79-year-old male with a past medical history significant for interstitial lung disease, pulmonary fibrosis, pulmonary hypertension with resultant cor pulmonale, ventricular tachycardia status post AICD, aortic stenosis status post TAVR, scleroderma, and chronic kidney disease stage III who presented to the ED with progressive worsening shortness of breath, fatigue, and generalized weakness. The patient is resting in bed comfortably. The patient reports he has not slept well due to diuretic continuously and will plan to change furosemide to diuretic dosing at 0700 and 1700. He reports his breathing has improved and he does not feel short of breath at rest. His dyspnea on exertion has slightly improved. He continues to feel weak. He has no other complaints and denies headache, chest pain, shortness of breath, abdominal pain, nausea, vomiting, fever, chills, dysuria, diarrhea or constipation. He is voiding and eliminating without difficulty. He is not ambulatory due to deconditioning and weakness, as well as, lung disease and dyspnea . Plan for PT/OT. Exam Vital Signs (past 8 hours): - 09/18/19 08:00 09/18/19 11:50 Temperature 97.6 F 98.4 F Pulse Rate 93 H 98 H Respiratory Rate 21 22 Blood Pressure 118/63 109/61 Pulse Oximetry 98 96 Fraction of Inspired Oxygen 30 Oxygen Delivery Method Nasal Cannula Oxygen Flow Rate 10 Narrative Exam Narrative: General: Elderly gentleman resting in bed and in no acute distress, well-developed, well-nourished, appropriately interactive. HEENT: Normocephalic, atraumatic. External ears without defect. Pupils equal, round, and reactive to light. Anicteric sclerae, moist conjunctivae, and no lid lag. Oropharynx free of erythema and cobble stoning with moist mucosa. Neck: Supple with full range of motion. No jugular venous distension. No lymphadenopathy or thyromegaly. Cardiovascular: Regular rhythm, tachycardic, with holosystolic murmur at LSB +3/6. No rubs or gallops appreciated. Pulmonary: Diminished throughout with bibasilar crackles. No wheezes or rhonchi. Normal respiratory effort with no use of accessory muscles. Abdomen: Soft, obese, bowel sounds present, nontender, nondistended. No hepatosplenomegaly or masses appreciated. Extremities: No clubbing or cyanosis. Moderate dependent pitting edema to hips bilaterally. Skin: Normal temperature, turgor, and texture; no rash, ulcers, or subcutaneous nodules appreciated. Neurological: Cranial nerves grossly intact. Generalized weakness without focal deficit. Psychiatric: Normal mood and affect. Alert and oriented to person, place, and time. Objective Labs Result Diagrams: 09/19/19 04:30 09/20/19 04:40 Labs: Laboratory Results - last 24 hr 09/17/19 09/17/19 09/18/19 14:30 14:30 04:40 WBC 10.5 RBC 3.69 L Hgb 11.7 L Hct 37.2 L MCV 100.6 H MCH 31.7 MCHC 31.6 RDW 16.6 H Plt Count 170 Neut % (Auto) 88.3 H Lymph % (Auto) 3.7 L [place] % (Auto) 7.4 Eos % (Auto) 0.5 L Baso % (Auto) 0.1 Neut # (Auto) 9300 H Lymph # (Auto) 400 L [place] # (Auto) 800 Eos # (Auto) 0 Baso # (Auto) 0 Sodium 135 L Potassium 4.4 Chloride 100 Carbon Dioxide 30 BUN 41 H Creatinine 1.60 H Estimated GFR 41.8 L BUN/Creatinine Ratio 25.6 H Glucose 100 Calcium 9.3 Magnesium 2.4 H Total Creatine Kinase 24 L CK-MB (CK-2) TNP CK-MB (CK-2) Rel Index TNP Troponin I 0.602 H* NT-Pro-B Natriuret Pep 09/18/19 04:40 WBC RBC Hgb Hct MCV MCH MCHC RDW Plt Count Neut % (Auto) Lymph % (Auto) [place] % (Auto) Eos % (Auto) Baso % (Auto) Neut # (Auto) Lymph # (Auto) [place] # (Auto) Eos # (Auto) Baso # (Auto) Sodium 137 Potassium 3.8 Chloride 100 Carbon Dioxide 31 BUN 41 H Creatinine 1.60 H Estimated GFR 41.8 L BUN/Creatinine Ratio 25.6 H Glucose 81 Calcium 9.4 Magnesium 2.3 Total Creatine Kinase CK-MB (CK-2) CK-MB (CK-2) Rel Index Troponin I 0.436 H* NT-Pro-B Natriuret Pep 7150 H Assessment & Plan Assessment & Plan narrative: Donn Funez is an 79-year-old male with a past medical history significant for interstitial lung disease, pulmonary fibrosis, pulmonary hypertension with resultant cor pulmonale, ventricular tachycardia status post AICD, aortic stenosis status post TAVR, scleroderma, and chronic kidney disease stage III who presented to the ED with progressive worsening shortness of breath, fatigue, and generalized weakness. 1. Cor pulmonale, acute on chronic, present on admission. Active. -Secondary to worsening pulmonary hypertension (PASP increased from 58 mmHg in 02/2018 to 110 mmHg 09/17/2019) from progressive interstitial lung disease and idiopathic pulmonary fibrosis. Due to cor pulmonale, RV is moderately enlarged and has moderated reduced systolic function. LV function is normal and TAVR valve is functioning normally. -Continue furosemide changed dosing from 40 mg IV every 8 hours to 60 mg IV at 0700 and 1700 to help improve patient's sleep (goal to be net negative 1-2 L over 24 hours). Plan to switch to PO furosemide when lower extremity edema resolves or earlier if JEY develops and creatinine worsening significantly. -Continue to monitor strict I&O and daily weights. Net -4 L and weight down from 102 kg to 98 kg. -Continue monitor electrolytes and replete as necessary. Continue potassium chloride 40 mEq daily and magnesium hydroxide 30 mL daily. Goal K > 4.0 and Mg > 2.0. 2. Non-sustained ventricular tachycardia and frequent PVCs, present on admission. Improved. -Patient has a history of VT and ACID placement in 2006. Over the past few months, he has required adenosine therapy but no shocks recently. -Echocardiogram demonstrated mild-moderate concentric left ventricular hypertrophy and normal size and normal systolic function with EF 65-70%, RV is moderately dilated and systolic function is moderately reduced, interventricular septum is flattened, consistent with a right ventricular pressure overload condition, bioprosthetic aortic valve that is working well with expected gradient across it (mean 14mmHg). There is mild to moderate perivalvular regurgitation around the prosthetic aortic valve, moderate to severe tricuspid regurgitation, RVSP is estimated to be at least 110 mmHg based on an estimated right atrial pressure of 8 mm Hg and compared to the Echo done 03/28/2018, severe pulmonary hypertension is present (increase from 58 mmHg to 110 mmHg). -Continue monitor electrolytes and replete as necessary. Continue potassium chloride 40 mEq daily and magnesium hydroxide 30 mL daily. Goal K > 4.0 and Mg > 2.0. -Continue metoprolol succinate 100 mg daily. 3. Acute on chronic hypoxemic respiratory failure, present on admission. Acute portion resolved. -Patient presented requiring 10L or more of supplemental oxygen at rest. His baseline oxygen requirement is 6 L of supplemental oxygen at rest and 10 L with activity. -Multifactorial and secondary to progressive interstitial lung disease and pulmonary fibrosis with secondary pulmonary hypertension and cor pulmonale. -Continue diuresis as above. -Continue respiratory therapy evaluation and treatment. Continue supplemental oxygen as necessary to maintain oxygen saturations 88-92%. Patient is back to baseline requirement of 6 L supplemental oxygen at rest. -Continue home sildenafil 20 mg 3 times daily, prednisone 10 mg daily, oxygen, and mycophenolate a 1000 mg twice daily. -Overall prognosis is grim and plan for palliative care consultation today as below and recommending hospice. 4. Type 2 myocardial infarction, present on admission. Resolved. -Initial troponin 0.052 then peaked at 0.690 and trended downward with diuresis 0.436. No need to further trend. -Echocardiogram demonstrated -Continue metoprolol succinate 100 mg daily and aspirin 81 mg daily. 5. Chronic kidney disease stage 3, present on admission. Stable. -Initial creatinine 1.4. Baseline creatinine 1.4-1.5. Creatinine trended up to 1.6 and is stable with diuresis and does not represent JEY. -Continue diuresis as above. -Avoid nephrotoxic agents. -Continue to monitor creatinine daily. 6. Scleroderma, chronic, present on admission. Stable. -Continue mycophenolate 1000 mg twice daily. 7. BPH, chronic, present on admission. Stable. -Continue finasteride 5 mg daily and terazosin 5 mg daily at bedtime. 8. Palliative Care. -Consulted Khushbu Burleson who will plan to see patient today to establish goals of care, discuss hospice, and fill out POLST. Code status: DNR/DNI, designates spouse is surrogate decision maker VTE prophylaxis: SQ heparin, SCDs Disposition: Patient likely to discharge home with home health in several days once adequately diuresed. Quality VTE Deep Vein Thrombosis/Pulmonary Embolism Present on Admission: No
[2019-09-18] MEDS: CALCIUM CARB/VIT D3 500/200 TABLET 1 EACH PO (14:44)
[2019-09-18 17:00] VITALS: BP 108/64; PULSE 94; RESP 28; TEMP 36.6; O2SAT 99
[2019-09-18] MEDS: FUROSEMIDE 100 MG/10 ML VIAL 60 MG IV (17:56)
[2019-09-18 20:00] VITALS: BP 93/57; PULSE 98; RESP 28; TEMP 36.6; O2SAT 99
[2019-09-18] MEDS: FINASTERIDE 5 MG TABLET PO (20:55)
[2019-09-18] MEDS: SENNOSIDES 8.6 MG TABLET 17.2 MG PO (20:55)
[2019-09-19 01:42] VITALS: BP 121/65; PULSE 92; RESP 22; TEMP 36.1; O2SAT 99
[2019-09-19 04:45] VITALS: BP 123/63; PULSE 91; RESP 27; TEMP 36.7; O2SAT 100
[2019-09-19 05:31] LABS: Add Manual Diff / Slide Review NO; Basophils Absolute Auto 0 /uL (0-100); Basophils Percent Auto 0.3 % (0-2); Eosinophils Absolute Auto 100 /uL (0-450); Eosinophils Percent Auto 0.7 % (2-4); Hematocrit 35.8 % (41-53); Hemoglobin 11.5 g/dL (13.5-17.5); Lymphocytes Absolute Auto 500 /uL (1100-4500); Lymphocytes Percent Auto 5.5 % (25-40); Mean Corpuscular Volume 100.2 fL (80-100); Monocytes Absolute Auto 800 /uL (0-900); Monocytes Percent Auto 8.7 % (3-14); Neutrophils Absolute Auto 7800 /uL (1500-7000); Neutrophils Percent Auto 84.8 % (50-75); Platelet Count 165 X10^3/uL (150-400); Red Blood Cell Count 3.58 X10^6/uL (4.5-5.9); Red Cell Distribution Width 16.9 % (11.6-14.8); White Blood Cell Count 9.2 X10^3/uL (4.5-11.0)
[2019-09-19 05:36] LABS: Alanine Aminotransferase 18 IU/L (<50); Albumin 3.2 g/dL (3.5-5.0); Albumin Globulin Ratio 1.5 (1.0-2.8); Alkaline Phosphatase 58 U/L (38-126); Aspartate Aminotransferase 20 IU/L (17-59); BUN Creatinine Ratio 23.5 (6-22); Bilirubin Total 0.9 mg/dL (0.2-1.3); Blood Urea Nitrogen 39 mg/dL (9-20); Calcium 9.2 mg/dL (8.4-10.2); Carbon Dioxide 30 mmol/L (22-32); Chloride 101 mmol/L (98-107); Estimated Glomerular Filt Rate 40.1 mL/min (>60); Globulin 2.1 g/dL (1.7-4.1); Glucose 79 mg/dL (80-110); HEMOLYSIS < 15 (0-50); Magnesium 2.3 mg/dL (1.6-2.3); Potassium 4.2 mmol/L (3.4-5.1); Sodium 135 mmol/L (137-145); Total Protein 5.3 g/dL (6.3-8.2)
[2019-09-19] MEDS: FUROSEMIDE 100 MG/10 ML VIAL 60 MG IV ×2 (06:38→17:21)
[2019-09-19] MEDS: PANTOPRAZOLE 20 MG TABLET PO (06:38)
[2019-09-19] MEDS: SODIUM CHLORIDE 0.9% FLUSH 10 ML IV ×3 (06:39→21:20)
[2019-09-19 07:52] VITALS: BP 105/64; PULSE 94; RESP 30; TEMP 36.1; O2SAT 97; O2SAT 98
[2019-09-19] MEDS: MULTIVITAMIN 1 TABLET 1 TAB PO (08:06)
[2019-09-19] MEDS: CALCIUM CARB/VIT D3 500/200 TABLET 1 EACH PO (08:06)
[2019-09-19] MEDS: METOPROLOL ER 50 MG TABLET 100 MG PO (08:06)
[2019-09-19] MEDS: POTASSIUM CHLORIDE 20 MEQ TAB 40 MEQ PO (08:06)
[2019-09-19] MEDS: HEPARIN 5,000 UNIT/ML VIAL 5000 UNIT SUBCUT ×2 (08:06→21:18)
[2019-09-19] MEDS: DOCUSATE 100 MG CAPSULE PO ×2 (08:06→21:19)
[2019-09-19] MEDS: LIDOCAINE PATCH 1 EACH ADH..PATCH 2 EACH TOP (08:06)
[2019-09-19] MEDS: MYCOPHENOLATE MOFETIL 500 MG TABLET 1000 MG PO ×2 (08:07→21:19)
[2019-09-19] MEDS: SILDENAFIL 20 MG TABLET PO ×2 (08:07→14:53)
[2019-09-19] MEDS: TERAZOSIN 5 MG CAPSULE PO (08:07)
[2019-09-19] MEDS: predniSONE 10 MG TABLET PO (08:07)
--- NOTE | 2019-09-19 10:10 | PT.IPTN ---
Current Diagnoses Acute and chronic respiratory failure with hypoxia (09/16/19) Physical Therapy Treatment Note M2 PT-IP Current Condition Start: 09/18/19 08:53 Freq: NEEDED Status: Active Protocol: Document 09/18/19 11:26 HH (Rec: 09/18/19 11:51 HH [id number]) Physical Therapy Current Condition Current Condition Evaluation Date 09/18/19 Treatment Diagnosis Dyspnea, acute & chronic respiratory failure, generalized weakness Onset Date 09/16/19 Weight Bearing Status Weight Bearing Status Full Weight Bearing M3 PT-IP Subjective Start: 09/18/19 08:53 Freq: NEEDED Status: Active Protocol: Document 09/19/19 09:55 KS (Rec: 09/19/19 10:58 KS [id number]) Subjective Physical Therapy Visit Type Type Treatment Note Visit Start Time 09:55 Visit Stop Time 10:10 Total Visit Minutes 15 Number of GLOBAL SALES EXECUTIVE Visits 1 Physical Therapy Visit Comments Patient Comments Pt agreeable to exercises in bed, but states not willing to get out of bed at this time d /t fatigue/SOB. Patient Goals Pt is not sure if he can go home d/t his very compromised cardiopulmonary system M4 PT-IP Mobility and Gait Start: 09/18/19 08:53 Freq: NEEDED Status: Active Protocol: Document 09/19/19 09:55 KS (Rec: 09/19/19 10:58 KS [id number]) PT-Transfer Assessment Comments Mobility Comments Pt in bed upon arrival from therapy w/ HOB elevated and O2 on 6L. Pts O2 raised to 10L in preparation for LE strengthening exercises. Pt completed 1X20 bilateral ankle pumps, 1x10 bilateral quad sets. During quad sets, pt reported slight SOB, O2 93% on 10L, raised to 12L for pts comfort. Pt then completed 1x10 glute sets and 1x2 bilateral supine hip abd. Cues for breathing techniques throughout exercises. Pt reported increased level of fatigue and SOB following exercises and requested to rest. Pts O2 remained over 92% throughout treatment on 10- 12L O2. Pt left in bed w/ all needs in reach and nursing notified of treatment. Gait Assessment Comments Gait Comments did not assess d/t unstable vital signs, SOB and fatigue. Stair Climbing Assessment Comments Stair Climbing Comments did not assess d/t unstable vital signs M5 PT-IP Objective Assessments Start: 09/18/19 08:53 Freq: NEEDED Status: Active Protocol: Document 09/18/19 11:26 HH (Rec: 09/18/19 11:51 HH [id number]) Orientation Orientation/Cognition Level of Alertness Alert Orientation Name,Age,Birthday,Month,Date, Year,Day of Week,Place, Situation Language Function Ability No Deficits Noted Safety Awareness Understands Safety Issues Memory Description No Deficits Noted Gross Range of Motion Upper Extremity ROM Assessment Within Functional Limits Lower Extremity ROM Assessment Within Functional Limits Strength Upper Extremity Strength Assessment Within Functional Limits Lower Extremity Strength Assessment Within Functional Limits Coordination Assessment Gross Coordination Gross Coordination WNL M6 PT-IP Treatment Start: 09/18/19 08:53 Freq: NEEDED Status: Active Protocol: Document 09/19/19 09:55 KS (Rec: 09/19/19 10:58 KS [id number]) Physical Therapy Treatment Education Education Provided Safety Other Treatments Other Treatment Performed Education on breathing techniques. M7 PT-IP Assessment and Plan Start: 09/18/19 08:53 Freq: NEEDED Status: Active Protocol: Document 09/19/19 09:55 KS (Rec: 09/19/19 10:58 KS [id number]) PT Summary Assessment and Plan Potential Rehabilitation Potential Fair Status of Condition at Evaluation Evolving Summary Impairments Pain,ROM,Strength,Balance,Bed Mobility,Transfers,Gait, Activity Tolerance Assessment Summary Pt continues to be limited by SOB, fatigue and unstable vital signs. Pt able to complete LE strengthening exercises including ankle pumps, quad sets, glute sets, and sup hip abd to improve blood flow, strength, and bed mobility. Pt requires cues throughout exercises for breathing to maintain O2 stats . Pts O2 >92% on 10-12L. Pt will require SNF to improve bed mobility, strength, and tolerance for activity. Goals Bed Mobility Goal Contact Guard Assistance Transfer Goal Contact Guard Assistance,Front Wheeled Walker,Four Wheeled Walker Gait Goal Contact Guard Assistance,Front Wheel Walker,Four Wheel Walker Gait Distance 10 Other Goals up to bathroom/ BSC with CGA/ min A Days to Meet Goals 10 Frequency of Treatment Frequency Of Treatment Once a Day Treatment Plan Physical Therapy Treatment Plan Bed Mobility Training,Transfer Training,Gait Training, Therapeutic Exercise,Balance Retraining,Discharge Planning, Hot or Cold Pack,Neuromuscular Re-ed Other Recommendations and Next Treatment check vital signs constantly Focus mobility as [place] d/c planning with SW. pt might go for palliative care Recommendations To Nursing Amount of Assist Needed 2 Person Assist Discharge Recommendations PT Discharge Recommendations Home with Assistance,Home Health,SNF Rehab Other Discharge Recommendations halfway will be an ideal option for him. However, home health might be an option if pt insists to go home. pt will also have a palliative consult later this pm. Equipment Needed for Home Before FWW for mobility if he goes Discharge home Might need ambulance to get pt into the house Transportation Needs at Discharge Stretcher/Ambulance
[2019-09-19] MEDS: METOPROLOL ER 50 MG TABLET PO (11:16)
--- NOTE | 2019-09-19 11:20 | CM.DPC ---
DCP Cont: Discussed patient during team rounds. Also, noted visit with Khushbu Burleson yesterday and email after visit. Patient is interested in hospice. Went ahead and [facility] and spoke to Viry about setting up an informational visit. She is to call back to update when visit can occur. Went ahead and sent over information, including face sheet, insurance information, H&P, Khushbu Burleson's note, med sheet, and labs. Gave her patient name. Let her know, and also indicated on fax sheet that patient is currently under [facility]. P: DCP to continue to follow. Plan is for home to resume [facility] for now, and then hospice when they are able to review and admit. Referral is still at [facility], but July indicated that they have to review, due to high oxygen needs. Jael Umana RN/Power Distribution Engineer
[2019-09-19 11:56] VITALS: BP 106/60; PULSE 101; RESP 26; TEMP 36.6; O2SAT 96
--- NOTE | 2019-09-19 13:01 | P.PN_ITS ---
Subjective Subjective Date Patient Seen: 09/19/19 Interval history: Donn Funez is an 79-year-old male with a past medical history significant for interstitial lung disease, pulmonary fibrosis, pulmonary hypertension with resultant cor pulmonale, ventricular tachycardia status post AICD, aortic stenosis status post TAVR, scleroderma, and chronic kidney disease stage III who presented to the ED with progressive worsening shortness of breath, fatigue, and generalized weakness. The patient is resting in bed comfortably. The patient reports slept well in the best he has in several night since his diuretic dosing was changed. He reports his breathing has not changed much and he continues to be short of breath with any type of exertion in bed. He is bedbound. He reports increasing weakness and fatigue. He has no other complaints and denies headache, chest pain, shortness of breath, abdominal pain, nausea, vomiting, fever, chills, dysuria, diarrhea or constipation. He is voiding and eliminating without difficulty. The patient reports that he is now accepted that he is dying and would like to pursue hospice. He informs me that his his somewhat more hesitant due to the thought of losing him. Plan for hospice informational visit tomorrow. Exam Vital Signs (past 8 hours): - 09/19/19 07:52 09/19/19 11:56 Temperature 96.9 F L 97.9 F Pulse Rate 94 H 101 H Respiratory Rate 30 H 26 H Blood Pressure 105/64 106/60 Pulse Oximetry 97 96 Fraction of Inspired Oxygen 30 Oxygen Delivery Method Nasal Cannula Oxygen Flow Rate 6 Narrative Exam Narrative: General: Elderly gentleman resting in bed and in no acute distress, well- developed, well-nourished, appropriately interactive. HEENT: Normocephalic, atraumatic. External ears without defect. Pupils equal, round, and reactive to light. Anicteric sclerae, moist conjunctivae, and no lid lag. Oropharynx free of erythema and cobble stoning with moist mucosa. Neck: Supple with full range of motion. No jugular venous distension. No lymphadenopathy or thyromegaly. Cardiovascular: Regular rhythm, tachycardic, with holosystolic murmur at LSB +3/6. No rubs or gallops appreciated. Pulmonary: Diminished throughout with bibasilar crackles. No wheezes or rhonchi. Normal respiratory effort with no use of accessory muscles. Abdomen: Soft, obese, bowel sounds present, nontender, nondistended. No hepatosplenomegaly or masses appreciated. Extremities: No clubbing or cyanosis. Mild dependent pitting edema to hips bilaterally improved. Skin: Normal temperature, turgor, and texture; no rash, ulcers, or subcutaneous nodules appreciated. Neurological: Cranial nerves grossly intact. Generalized weakness without focal deficit. Psychiatric: Normal mood and affect. Alert and oriented to person, place, and time. Objective Labs Result Diagrams: 09/19/19 04:30 09/20/19 04:40 Labs: Laboratory Results - last 24 hr 09/19/19 09/19/19 04:30 04:30 WBC 9.2 RBC 3.58 L Hgb 11.5 L Hct 35.8 L MCV 100.2 H MCH 32.0 MCHC 32.0 RDW 16.9 H Plt Count 165 Neut % (Auto) 84.8 H Lymph % (Auto) 5.5 L [place] % (Auto) 8.7 Eos % (Auto) 0.7 L Baso % (Auto) 0.3 Neut # (Auto) 7800 H Lymph # (Auto) 500 L [place] # (Auto) 800 Eos # (Auto) 100 Baso # (Auto) 0 Sodium 135 L Potassium 4.2 Chloride 101 Carbon Dioxide 30 BUN 39 H Creatinine 1.66 H Estimated GFR 40.1 L BUN/Creatinine Ratio 23.5 H Glucose 79 L Calcium 9.2 Magnesium 2.3 Total Bilirubin 0.9 AST 20 ALT 18 Alkaline Phosphatase 58 Total Protein 5.3 L Albumin 3.2 L Globulin 2.1 Albumin/Globulin Ratio 1.5 Assessment & Plan Assessment & Plan narrative: Donn Funez is an 79-year-old male with a past medical history significant for interstitial lung disease, pulmonary fibrosis, pulmonary hypertension with resultant cor pulmonale, ventricular tachycardia status post AICD, aortic stenosis status post TAVR, scleroderma, and chronic kidney disease stage III who presented to the ED with progressive worsening shortness of breath, fatigue, and generalized weakness. 1. Cor pulmonale, acute on chronic, present on admission. Improving. -Secondary to worsening pulmonary hypertension (PASP increased from 58 mmHg in 02/2018 to 110 mmHg 09/17/2019) from progressive interstitial lung disease and id iopathic pulmonary fibrosis. Due to cor pulmonale, RV is moderately enlarged and has moderated reduced systolic function. LV function is normal and TAVR valve is functioning normally. -Continue furosemide 60 mg IV at 0700 and 1700 to help improve patient's sleep (goal to be net negative 1-2 L over 24 hours). Plan to switch to PO furosemide when lower extremity edema resolves or earlier if JEY develops and creatinine worsening significantly. -Continue to monitor strict I&O and daily weights. Net -4.8 L and weight down from 102 kg to 96.6 kg. -Continue monitor electrolytes and replete as necessary. Continue potassium chloride 40 mEq daily and magnesium hydroxide 30 mL daily. Goal K > 4.0 and Mg > 2.0. 2. Non-sustained ventricular tachycardia and frequent PVCs, present on admission. Stable. -Patient has a history of VT and ACID placement in 2006. Over the past few months, he has required adenosine therapy but no shocks recently. -Echocardiogram demonstrated mild-moderate concentric left ventricular hypertrophy and normal size and normal systolic function with EF 65-70%, RV is moderately dilated and systolic function is moderately reduced, interventricular septum is flattened, consistent with a right ventricular pressure overload condition, bioprosthetic aortic valve that is working well with expected gradient across it (mean 14mmHg). There is mild to moderate perivalvular re gurgitation around the prosthetic aortic valve, moderate to severe tricuspid regurgitation, RVSP is estimated to be at least 110 mmHg based on an estimated right atrial pressure of 8 mm Hg and compared to the Echo done 03/28/2018, severe pulmonary hypertension is present (increase from 58 mmHg to 110 mmHg). -Continue monitor electrolytes and replete as necessary. Continue potassium chloride 40 mEq daily and magnesium hydroxide 30 mL daily. Goal K > 4.0 and Mg > 2.0. -Continue metoprolol succinate increased from 100 mg to 150 mg daily to better control tachycardia. 3. Acute on chronic hypoxemic respiratory failure, present on admission. Acute portion resolved. -Patient presented requiring 10L or more of supplemental oxygen at rest. His baseline oxygen requirement is 6 L of supplemental oxygen at rest and 10 L with activity. -Multifactorial and secondary to progressive interstitial lung disease and pulmonary fibrosis with secondary pulmonary hypertension and cor pulmonale. -Continue diuresis as above. -Continue respiratory therapy evaluation and treatment. Continue supplemental oxygen as necessary to maintain oxygen saturations 88-92%. Patient is back to baseline requirement of 6 L supplemental oxygen at rest. -Continue home sildenafil 20 mg 3 times daily, prednisone 10 mg daily, oxygen, and mycophenolate a 1000 mg twice daily. -Overall prognosis is grim, therefore, consulted palliative care as below and recommending home with hospice in which a hospice informational visit is planned tomorrow. 4. Type 2 myocardial infarction, present on admission. Resolved. -Initial troponin 0.052 then peaked at 0.690 and trended downward with diuresis 0.436. No need to further trend. -Echocardiogram demonstrated mild-moderate concentric left ventricular hypertrophy and normal size and normal systolic function with EF 65-70%, RV is moderately dilated and systolic function is moderately reduced, interventricular septum is flattened, consistent with a right ventricular pressure overload condition, bioprosthetic aortic valve that is working well with expected gradient across it (mean 14mmHg). There is mild to moderate perivalvular regurgitation around the prosthetic aortic valve, moderate to severe tricuspid regurgitation, RVSP is estimated to be at least 110 mmHg based on an estimated right atrial pressure of 8 mm Hg and compared to the Echo done 03/28/2018, severe pulmonary hypertension is present (increase from 58 mmHg to 110 mmHg). -Continue metoprolol succinate increased from 100 mg to 150 mg daily to better control tachycardia and aspirin 81 mg daily. 5. Chronic kidney disease stage 3, present on admission. Stable. -Initial creatinine 1.4. Baseline creatinine 1.4-1.5. Creatinine trended up now 1.66 and is stable with diuresis. Does not represent JEY. -Continue diuresis as above. -Avoid nephrotoxic agents. -Continue to monitor creatinine daily. 6. Scleroderma, chronic, present on admission. Stable. -Continue mycophenolate 1000 mg twice daily. 7. BPH, chronic, present on admission. Stable. -Continue finasteride 5 mg daily and terazosin 5 mg daily at bedtime. 8. Palliative Care. -Consulted Khushbu WITT who established goals of care, discussed hospice and plan for hospice informational visit tomorrow, and filled out POLST form. Code status: DNR/DNI, designates spouse is surrogate decision maker VTE prophylaxis: SQ heparin, SCDs Disposition: Patient likely to discharge home with hospice to open in the next 1-2 days once he is adequately diuresed. Quality VTE Deep Vein Thrombosis/Pulmonary Embolism Present on Admission: No
--- NOTE | 2019-09-19 13:46 | CM.DPC ---
Addendum entered by Jael Umana R.N. 09/19/19 15:25: Updated patient and that hospice may not be able to open until at least Monday, but they will attempt an informational visit today. Asked patient's if she wanted to order a hospital bed for know with [facility] [place], but she is wanting to wait until hospice admits patient. She stated that the bed at home will work for now. Addendum entered by Jael Umana R.N. 09/19/19 15:11: Spoke to Courtney at [facility]. Stated that they are full, but can reassess on Monday. She will still set up an informational visit, and will attempt for tomorrow. Will call back to let care management know time. At this point, patient will discharge home with resumption of [facility] until hospice can open. Addendum entered by Jael Umana R.N. 09/19/19 14:57: Spoke to Courtney at [facility] to follow up with when informational visit would occur. Courtney stated that the staff members were in a meeting, but would call back. Stated, would try for some time in the morning. Also mentioned that openings for admission may not be until at least Monday, but should also have more information on this as well. Addendum entered by Jael Umana R.N. 09/19/19 14:02: Called ambulance for pricing. [facility] fee is $85.00 base fee, and $5.00 a mile. BLS fee, which is two person transfer, is $600.00 base fee, and $12.00 per mile. Updated patient and . Let her know that they would most likely bill for services. stated, I'd rather he go the more comfortable way, so BLS may be better. Original Note: DCP Cont: Met with patient and , Michelle Smith. Discussed goals of care at discharge. It is noted that patient is weak, and a two person transfer. has been primary caregiver. Discussed care home between patient and . Patient worries about his having to care for him at home, but his goal is to be able to pass away at home. is concerned about patient going to skilled, when she can't see him, and due to COVID. Patient stated, he didn't really think that he would improve with rehab. Patient currently does not have a hospital bed, but spends most of his time in the recliner. He also has a bed that can be elevated to help with breathing. 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 Their priority is for home at this time. Discussed transportation, for patient does have 4 steep stairs to get up to [facility], and patient would be unable to navigate steps. He may need BLS transport. Let and patient know that transportation is most likely not covered. [facility] would be less, but would not be able to navigate up the stairs. Let and patient know that this oil field caser can call transportation company and get more information on cost. P: DCP to continue to follow. Will follow up with hospice today to see when info visit can occur. Will check on transportation cost as well. Jael Umana RN/Business Center Attendant
[2019-09-19 15:20] VITALS: BP 107/56; PULSE 95; RESP 31; TEMP 36.8; O2SAT 98
--- NOTE | 2019-09-19 15:35 | OT.IP.TRT ---
Current Diagnoses Acute and chronic respiratory failure with hypoxia (09/16/19) Occupational Therapy Treatment Note M2 OT-IP Current Condition Start: 09/17/19 15:24 Freq: Status: Active Protocol: Document 09/17/19 15:25 [facility] (Rec: 09/17/19 16:10 [facility] [id number]) Occupational Therapy Current Condition Current Condition Evaluation Date 09/17/19 Treatment Diagnosis Dyspnea,acute and chronic hypoxic respiratory failure, decreased mobility Diagnosis Onset Date 09/16/19 M3 OT- IP Subjective and Pain Start: 09/17/19 15:24 Freq: Status: Active Protocol: Document 09/19/19 15:28 [facility] (Rec: 09/19/19 15:35 [facility] [id number]) OT- Subjective Occupational Therapy Visit Type Type Treatment Note Visit Start Time 15:14 Visit Stop Time 15:23 Total Visit Minutes 9 Occupational Therapy Visit Comments Patient Comments Pt to go home with hospice when medically stable. Patient/Caregiver Goals To go home. M4 OT- IP ADL's Start: 09/17/19 15:24 Freq: Status: Active Protocol: Document 09/19/19 15:28 [facility] (Rec: 09/19/19 15:35 [facility] [id number]) OT ADL-Dressing Comments OT Dressing Comments Suggested to pt's to bring in clothing that pt will want to wear at home so nursing able to assist to get on prior to going home. Suggested clothing that would be comfortable and easy to use a urinal with. OT ADL-Toileting Comments OT Toileting Comments Suggested pt to have a bed oh at home for use. OT ADL-Bathing Comments OT Bathing Comments Sponge bathing will be more appropriate at this time. M5 OT- IP IADL's Start: 09/17/19 15:24 Freq: Status: Active Protocol: Document 09/17/19 15:25 [facility] (Rec: 09/17/19 16:10 [facility] [id number]) OT-Instrumental Activities of Daily Living Home Safety Awareness Awareness of Need for Assistance at Home Good Awareness Medication Management Medication Management Caregiver Administers Money Management Money Management Caregiver Provides Assistance Meal Preparation Meal Preparation Caregiver Provides Assist Boiler Riveter Boiler Riveter Caregiver Provides Assist Driving Driving Caregiver Provides Assist Pt states is content to go home and feel that he has lived a full life. OT- Vision and Hearing OT- Hearing Assessment OT- Hearing Assessment WFL OT- Vision Assessment Visual Acuity Glasses For Reading M7 OT- IP Mobility and Balance Start: 09/17/19 15:24 Freq: Status: Active Protocol: Document 09/19/19 15:28 [facility] (Rec: 09/19/19 15:35 [facility] [id number]) OT-Transfer Assessment Comments Mobility Comments Encouraged pt's to consider a hospital bed versus their adjustable bed at home. To ensure good body mechanics for and caregivers pt would be benefit from use of the hospital bed for hygiene, dressing, and toileting needs. Pt's now open to have a hospital bed and immigration case worker to give them talk to pt and . M8 OT- IP Objective Assessments Start: 09/17/19 15:24 Freq: Status: Active Protocol: Document 09/17/19 15:25 [facility] (Rec: 09/17/19 16:10 [facility] [id number]) OT Gross Range of Motion Upper Extremity Range of Motion Assessment Within Functional Limits OT Strength Comments Strength Comments 4/5 for BUE OT-Muscle Tone Assessment Muscle Tone WNL Yes M9 OT- IP Assessment and Plan Start: 09/17/19 15:24 Freq: Status: Active Protocol: Document 09/19/19 15:28 [facility] (Rec: 09/19/19 15:35 [facility] [id number]) OT Summary Assessment and Plan Potential Rehabilitation Potential Poor Summary Progress Towards Goals Slow Progress due to Medical Issues,Slow Progress due to Activity Tolerance Assessment Summary Pt and have decided to do Hospice and has most equipment needs and just mainly needing hospital bed and bed oh at this time. Pt discharged from OT services. Pt due to weakness and decreased activity tolerance will benefit from use of ambulance to get into the house due to multiple steps and over various terrain in order to get into the house. Goals Days to Meet Goals 1 Discharge Recommendations OT Discharge Recommendations Home with 19/09 Assist,Home Health Home Equipment Needs FWW?, Hospital bed, bed oh *Pt will need ambulance to get him into the house due to the multiple steps and not having completing doing steps in months.
[2019-09-19 20:10] VITALS: BP 112/66; PULSE 100; RESP 32; TEMP 36.7; O2SAT 98
[2019-09-19] MEDS: SENNOSIDES 8.6 MG TABLET 17.2 MG PO (21:18)
[2019-09-19] MEDS: FINASTERIDE 5 MG TABLET PO (21:19)
[2019-09-20] VITALS (10 sets, daily range): BP systolic 108–135; BP diastolic 64–80; PULSE 90–124; RESP 27–42; TEMP 35.8–36.8; O2SAT 92–100
[2019-09-20] MEDS: methocarbamoL 500 MG TABLET 750 MG PO (04:47)
[2019-09-20 05:29] LABS: Blood Urea Nitrogen 35 mg/dL (9-20); Calcium 9.3 mg/dL (8.4-10.2); Carbon Dioxide 30 mmol/L (22-32); Chloride 102 mmol/L (98-107); Estimated Glomerular Filt Rate 46.5 mL/min (>60); Glucose 81 mg/dL (80-110); HEMOLYSIS < 15 (0-50); Magnesium 2.3 mg/dL (1.6-2.3); Potassium 4.1 mmol/L (3.4-5.1); Sodium 136 mmol/L (137-145)
[2019-09-20] MEDS: SODIUM CHLORIDE 0.9% FLUSH 10 ML IV ×3 (06:42→20:28)
[2019-09-20] MEDS: FUROSEMIDE 100 MG/10 ML VIAL 60 MG IV ×2 (06:42→17:01)
[2019-09-20] MEDS: PANTOPRAZOLE 20 MG TABLET PO (06:42)
[2019-09-20] MEDS: METOPROLOL ER 50 MG TABLET 150 MG PO (09:46)
[2019-09-20] MEDS: HEPARIN 5,000 UNIT/ML VIAL 5000 UNIT SUBCUT ×2 (09:46→20:23)
[2019-09-20] MEDS: POTASSIUM CHLORIDE 20 MEQ TAB 40 MEQ PO (09:50)
[2019-09-20] MEDS: MULTIVITAMIN 1 TABLET 1 TAB PO (09:51)
[2019-09-20] MEDS: ASPIRIN EC 81 MG TABLET PO (09:53)
--- NOTE | 2019-09-20 10:02 | PC.NURSE ---
Addendum entered by Valentina Brewster R.N. 09/20/19 14:29: Pt continues with anxiety R/t increased SOB with activity. Morphine has been helpful with pain, discussed adding in Ativan for anxiety, which remains a clear component in Patients SOB. Pt did better with ensure at meal time, as gas pain was making finishing meal tough . Simethicone at bedside, Pt agreeable to try. Ativan given PO. Addendum entered by Valentina Brewster R.N. 09/20/19 12:42: Pt tolerated Morphine well. Pt able to reposition with assist. Pain to coccyx, offloading and floating heels. Any amount of activity causes RR to 30's. 10L via NC. 1mg of Morphine given @1230 Original Note: Am shift Pt reporting increased WOB and increased chest pain to R side this AM. RR 30's, unable to speak in full sentances. Spo2 93 on 10L NC. Stat EKG ordered and Cardiac labs. EKG showing Sinus Tach, update to Dr Kinsey, at bedside. Will try PO MOrphine, for air hunger and pain control.
[2019-09-20] MEDS: MORPHINE 2 MG/ML INJ ×2 (10:23→13:00)
[2019-09-20 10:48] LABS: Creatine Kinase < 20 U/L (55-170)
[2019-09-20 11:03] LABS: Troponin I 0.203 ng/mL (0.01-0.034)
--- NOTE | 2019-09-20 11:17 | PT-IP ANOTE ---
Attempted to see pt at 1110 am but CORRY Montgomery stated pt is not appropriate for therapy at this point since pt has new onset of chest pain to R side this AM. RR 30's, unable to speak in full sentances. Spo2 93 on 10L NC. Per EMR, pt and have decided to do hospice and has most equipment needs and just mainly needing hospital bed and bed oh.
--- NOTE | 2019-09-20 11:24 | PT.IPTN ---
Current Diagnoses Acute and chronic respiratory failure with hypoxia (09/16/19) Physical Therapy Treatment Note M2 PT-IP Current Condition Start: 09/18/19 08:53 Freq: NEEDED Status: Active Protocol: Document 09/18/19 11:26 [facility] (Rec: 09/18/19 11:51 [facility] [id number]) Physical Therapy Current Condition Current Condition Evaluation Date 09/18/19 Treatment Diagnosis Dyspnea, acute & chronic respiratory failure, generalized weakness Onset Date 09/16/19 Weight Bearing Status Weight Bearing Status Full Weight Bearing M3 PT-IP Subjective Start: 09/18/19 08:53 Freq: NEEDED Status: Active Protocol: Document 09/20/19 11:22 [facility] (Rec: 09/20/19 11:24 [id number]) Subjective Physical Therapy Visit Type Type Discharge Summary M7 PT-IP Assessment and Plan Start: 09/18/19 08:53 Freq: NEEDED Status: Active Protocol: Document 09/20/19 11:22 [facility] (Rec: 09/20/19 11:24 [id number]) PT Summary Assessment and Plan Summary Assessment Summary Attempted to see pt at 1110 am but CORRY Montgomery stated pt is not appropriate for therapy at this point since pt has new onset of chest pain to R side this AM. RR 30's, unable to speak in full sentances. Spo2 93 on 10L NC. Pt has been medically unstable since IE, along with very limited activity tolerance who is not able to [place] any treatment sesison. Also, pt and have decided to do hospice and has most equipment needs and just mainly needing hospital bed and bed oh. D/c from therapy at this point.
[2019-09-20] MEDS: DOCUSATE 100 MG CAPSULE PO ×2 (12:02→20:23)
[2019-09-20] MEDS: TERAZOSIN 5 MG CAPSULE PO (12:03)
--- NOTE | 2019-09-20 12:05 | CM.DPC ---
DCP: case again received and EMR for last few days reviewed. Dr. Kinsey has confirmed that pt will likely d/c tomorrow but she wants to make sure all DME is in place before then. Spoke with MILAN Valdez earlier this morning and at that point the Hospice info visit was pending. A followup now with pt's Michelle Smith, who is currently at bedside, confirms that she did the info visit over the phone with a Hospice staff member and electronically signed consents. DME has been ordered by Hospice to include a hospital bed as well as overbed table. Pt currently has oxygen at home and Hospice will switch this to the Hospice account as per their process. Michelle Smith says she has all other equipment currently needed and is comfortable with the plan for d/c to home tomorrow. Both agree that ambulance is only appropriate transport. Pt notes concerns re the transport as I hurt anytime I am moving and then my oxygen level gets really low. He is assured that BLS crew will be aware of this and that medication will be given to help make the transport a bit smoother for him. Have a call now into MILAN Valdez to check on the status of the DME delivery time. P: home tomorrow once all in place as per above: BLS...it remains unclear when [facility] will officially be able to open pt to service. Courtney has stated the team will review cases received again on Monday and that at this time she can not given any specific date or time, only stating we are currently at capacity.
[2019-09-20] MEDS: SILDENAFIL 20 MG TABLET PO ×3 (12:41→20:27)
[2019-09-20] MEDS: dilTIAZem 5 MG/ML SDV 10 MG IV (13:29)
[2019-09-20] MEDS: predniSONE 10 MG TABLET PO (14:39)
[2019-09-20] MEDS: MYCOPHENOLATE MOFETIL 500 MG TABLET 1000 MG PO ×2 (14:39→20:27)
[2019-09-20] MEDS: polyethylene glycoL 3350 17 GM POWD.PACK PO (14:40)
[2019-09-20] MEDS: LORazepam 0.5 MG TABLET PO (14:41)
[2019-09-20] MEDS: MAG HYDROX/ALUM/SIMETH 30 ML UDC PO (14:41)
--- NOTE | 2019-09-20 16:08 | P.PN_ITS ---
Subjective Subjective Date Patient Seen: 09/20/19 Interval history: Donn Funez is an 79-year-old male with a past medical history significant for interstitial lung disease, pulmonary fibrosis, pulmonary hypertension with resultant cor pulmonale, ventricular tachycardia status post AICD, aortic stenosis status post TAVR, scleroderma, and chronic kidney disease stage III who presented to the ED with progressive worsening shortness of breath, fatigue, and generalized weakness. The patient is resting in bed and looks mildly uncomfortable. He is more tachypneic today. He reports he is more short of breath and it feels harder for him to catch his breath. He also endorses a right-sided mild chest discomfort. Ordered repeat cardiac panel in which troponin continues to trend downward with diuresis as anticipated. Repeat EKG did not demonstrate any acute ischemic changes. May possibly be related to increased dose of beta-cherie. Ordered morphine and lorazepam for comfort and to help his work of breathing. He continues to feel weak. He has no other complaints and denies headache, diaphoresis, abdominal pain, nausea, vomiting, fever, chills, dysuria, diarrhea or constipation. He is voiding and eliminating without difficulty. Plan to place Workman catheter for comfort. Discussed hospice with patient and his and plan for patient to go home in the next 1-2 days with hospice to open. Plan to arrange for hospital equipment to be delivered tomorrow. Exam Vital Signs (past 8 hours): - 09/20/19 08:29 09/20/19 09:46 09/20/19 11:55 Temperature 96.5 F L 98.2 F Pulse Rate 101 H 122 H 124 H Respiratory Rate 32 H 37 H Blood Pressure 116/80 108/68 135/80 Pulse Oximetry 92 98 Fraction of Inspired Oxygen 30 Oxygen Delivery Method Nasal Cannula Oxygen Flow Rate 6 Narrative Exam Narrative: General: Elderly gentleman resting in bed and in no acute distress, well- developed, well-nourished, appropriately interactive. HEENT: Normocephalic, atraumatic. External ears without defect. Pupils equal, ro und, and reactive to light. Anicteric sclerae, moist conjunctivae, and no lid lag. Oropharynx free of erythema and cobble stoning with moist mucosa. Neck: Supple with full range of motion. No jugular venous distension. No lymphadenopathy or thyromegaly. Cardiovascular: Regular rhythm, tachycardic, with holosystolic murmur at LSB +3/6. No rubs or gallops appreciated. Pulmonary: Diminished throughout with bibasilar crackles. No wheezes or rhonchi. Normal respiratory effort with no use of accessory muscles. Abdomen: Soft, obese, bowel sounds present, nontender, nondistended. No hepatosplenomegaly or masses appreciated. Extremities: No clubbing or cyanosis. Mild dependent pitting edema to hips bilaterally improved. Skin: Normal temperature, turgor, and texture; no rash, ulcers, or subcutaneous nodules appreciated. Neurological: Cranial nerves grossly intact. Generalized weakness without focal deficit. Psychiatric: Normal mood and affect. Alert and oriented to person, place, and ti me. Objective Labs Result Diagrams: 09/19/19 04:30 09/21/19 05:28 Labs: Laboratory Results - last 24 hr 09/20/19 09/20/19 04:40 09:58 Sodium 136 L Potassium 4.1 Chloride 102 Carbon Dioxide 30 BUN 35 H Creatinine 1.46 H Estimated GFR 46.5 L BUN/Creatinine Ratio 24.0 H Glucose 81 Calcium 9.3 Magnesium 2.3 Total Creatine Kinase < 20 L CK-MB (CK-2) TNP CK-MB (CK-2) Rel Index TNP Troponin I 0.203 H* Assessment & Plan Assessment & Plan narrative: Donn Funez is an 79-year-old male with a past medical history significant for interstitial lung disease, pulmonary fibrosis, pulmonary hypertension with resultant cor pulmonale, ventricular tachycardia status post AICD, aortic stenosis status post TAVR, scleroderma, and chronic kidney disease stage III who presented to the ED with progressive worsening shortness of breath, fatigue, and generalized weakness. 1. Cor pulmonale, acute on chronic, present on admission. Active. -Secondary to worsening pulmonary hypertension (PASP increased from 58 mmHg in 02/2018 to 110 mmHg 09/17/2019) from progressive interstitial lung disease and idiopathic pulmonary fibrosis. Due to cor pulmonale, RV is moderately enlarged and has moderated reduced systolic function. LV function is normal and TAVR valve is functioning normally. -Continue furosemide 60 mg IV at 0700 and 1700 to help improve patient's sleep (goal to be net negative 1-2 L over 24 hours). Plan to switch to PO furosemide when lower extremity edema resolves or earlier if JEY develops and creatinine worsening significantly. -Continue to monitor strict I&O and daily weights. Net -5 L and weight down from 102 kg to 96 kg. -Continue monitor electrolytes and replete as necessary. Continue potassium chloride 40 mEq increased from once to twice daily. Goal K > 4.0 and Mg > 2.0. 2. Non-sustained ventricular tachycardia and frequent PVCs, present on admissio n. Stable. -Patient has a history of VT and ACID placement in 2006. Over the past few months, he has required adenosine therapy but no shocks recently. -Echocardiogram demonstrated mild-moderate concentric left ventricular hypertrophy and normal size and normal systolic function with EF 65-70%, RV is moderately dilated and systolic function is moderately reduced, interventricular septum is flattened, consistent with a right ventricular pressure overload condition, bioprosthetic aortic valve that is working well with expected gradient across it (mean 14mmHg). There is mild to moderate perivalvular regurgitation around the prosthetic aortic valve, moderate to severe tricuspid regurgitation, RVSP is estimated to be at least 110 mmHg based on an estimated right atrial pressure of 8 mm Hg and compared to the Echo done 03/28/2018, severe pulmonary hypertension is present (increase from 58 mmHg to 110 mmHg). -Continue to monitor electrolytes and replete as necessary. Continue potassium chloride 40 mEq increased from once to twice daily. Goal K > 4.0 and Mg > 2.0. -Continue metoprolol succinate decreased from 100 mg to 50 mg daily due to possibility of bronchospasm/constriction and added diltiazem 30 mg every 6 hours for better heart rate control. 3. Acute on chronic hypoxemic respiratory failure, present on admission. Acute portion resolved. -Patient presented requiring 10L or more of supplemental oxygen at rest. His baseline oxygen requirement is 6 L of supplemental oxygen at rest and 10 L with activity. -Multifactorial and secondary to progressive interstitial lung disease and pulmonary fibrosis with secondary pulmonary hypertension and cor pulmonale. -Continue diuresis as above. -Continue respiratory therapy evaluation and treatment. Continue supplemental oxygen as necessary to maintain oxygen saturations 88-92%. Patient is back to baseline requirement of 6 L supplemental oxygen at rest and 10 L with activity. -Continue home sildenafil 20 mg 3 times daily, prednisone 10 mg daily, oxygen, and mycophenolate a 1000 mg twice daily. -Overall prognosis is grim, therefore, consulted palliative care as below and patient is planning on discharging home with hospice. 4. Type 2 myocardial infarction, present on admission. Resolved. -Initial troponin 0.052 then peaked at 0.690 and trended downward with diuresis 0.436. No need to further trend. -Echocardiogram demonstrated mild-moderate concentric left ventricular hypertrophy and normal size and normal systolic function with EF 65-70%, RV is moderately dilated and systolic function is moderately reduced, interventricular septum is flattened, consistent with a right ventricular pressure overload condition, bioprosthetic aortic valve that is working well with expected gradient across it (mean 14mmHg). There is mild to moderate perivalvular regurgitation around the prosthetic aortic valve, moderate to severe tricuspid regurgitation, RVSP is estimated to be at least 110 mmHg based on an estimated right atrial pressure of 8 mm Hg and compared to the Echo done 03/28/2018, severe pulmonary hypertension is present (increase from 58 mmHg to 110 mmHg). -Continue metoprolol succinate decreased from 100 mg to 50 mg daily due to possible bronchospasm/constriction and aspirin 81 mg daily. 5. Chronic kidney disease stage 3, present on admission. Stable. -Initial creatinine 1.4. Baseline creatinine 1.4-1.5. Creatinine trended down and improved with diuresis now 1.46. -Continue diuresis as above. -Avoid nephrotoxic agents. -Continue to monitor creatinine daily. 6. Scleroderma, chronic, present on admission. Stable. -Continue mycophenolate 1000 mg twice daily. 7. BPH, chronic, present on admission. Stable. -Continue finasteride 5 mg daily and terazosin 5 mg daily at bedtime. 8. Palliative Care. -Consulted Khushbu WITT who established goals of care and filled out POLST form. Patient is planning on discharging home with hospice. Code status: DNR/DNI, designates spouse is surrogate decision maker VTE prophylaxis: SQ heparin, SCDs Disposition: Patient likely to discharge tomorrow home with hospice to open next week. Quality VTE Deep Vein Thrombosis/Pulmonary Embolism Present on Admission: No
[2019-09-20] MEDS: dilTIAZem 30 MG TABLET PO ×2 (17:52→20:26)
[2019-09-20] MEDS: SENNOSIDES 8.6 MG TABLET 17.2 MG PO (20:24)
[2019-09-20] MEDS: FINASTERIDE 5 MG TABLET PO (20:27)
[2019-09-20] MEDS: MORPHINE 10 MG/0.5 ML ORAL SYRINGE PO (20:28)
--- NOTE | 2019-09-20 22:20 | PC.NURSE ---
1800- Patient noted to have stone colored urine. Will monitor.
[2019-09-21 00:16] VITALS: BP 115/61; PULSE 91; RESP 28; TEMP 36.7; O2SAT 100
[2019-09-21 05:34] VITALS: BP 97/60; PULSE 94; RESP 34; TEMP 36.6; O2SAT 96
[2019-09-21 06:09] LABS: BUN Creatinine Ratio 26.5 (6-22); Blood Urea Nitrogen 39 mg/dL (9-20); Calcium 9.5 mg/dL (8.4-10.2); Carbon Dioxide 28 mmol/L (22-32); Chloride 100 mmol/L (98-107); Estimated Glomerular Filt Rate 46.1 mL/min (>60); Glucose 95 mg/dL (80-110); HEMOLYSIS < 15 (0-50); Magnesium 2.3 mg/dL (1.6-2.3); Potassium 3.5 mmol/L (3.4-5.1); Sodium 136 mmol/L (137-145)
[2019-09-21] MEDS: PANTOPRAZOLE 20 MG TABLET PO (06:14)
[2019-09-21] MEDS: FUROSEMIDE 100 MG/10 ML VIAL 60 MG IV (06:14)
[2019-09-21] MEDS: SODIUM CHLORIDE 0.9% FLUSH 10 ML IV ×2 (06:15→13:46)
[2019-09-21 07:34] VITALS: BP 107/59; PULSE 120; RESP 34; TEMP 36.4; O2SAT 93
--- NOTE | 2019-09-21 08:44 | CM.DPC ---
Addendum entered by Simi Adams LPN 09/22/19 08:26: Checked in this morning on d/c summary. This is still in draft although Dr. Kinsey is not here today. Will fax the draft version now to [facility] Addendum entered by Simi Adams LPN 09/21/19 12:48: will fax d/c summary to [facility] when it is available. Addendum entered by Simi Adams LPN 09/21/19 12:43: [facility] has now confirmed the nurse will be at pt's home on Friday 09/22 between 1000 and 1100. Michelle Smith is updated. CORRY Montgomery has now confirmed that Michelle Smith has decided to get any needed medications for pt tomorrow. PT has all needed meds at home and including morphine tablets and Xanax, which he was using prior to admitting to hospital and which were working well for him. She has left hospital now for home. Yue will followup with a phone call to Michelle Smith once she is at home. Addendum entered by Simi Adams LPN 09/21/19 12:17: Have been working with [facility] Yue, Dr. Kinsey, pt and his Michelle Smith for last few hours on coordination of the d/c plan for today: UPDATES: [facility] has confirmed DME will be at the home between [id number] today. Pt and prefer to wait until the bed is set up: thus pt is now set for [facility] pickling operator time of 1600. Multiple steps are part of the entry to the home: [facility] is aware. Pt remains on 6-10 L o2. He at this time is bedbound. Dr. Kinsey has gone over medications with Michelle Smith and has also asked lean manufacturing coordinator to do this as well instead of primary RN caring for pt (Valentina) as is a palliative certified RN. Michelle Smith will pickling operator medications at the pharmacy and she is now updated re need to have these pd for by pt's current insurance plan ([facility] will not pay for any of the medications until the RN has opened pt to service. Dr. Kinsey has been updated) Conferred with Michelle Smith and CORRY Montgomery: pt uses [facility] in [place]: Valentina is contacting [facility] in hope that scripts can be filled there in time for Michelle Smith to pick them up and then return to [place] to await the DME delivery. MILAN Turner is waiting for her supervisor machine setter to call her to see about date of open and then she will call Michelle Smith on her cell: [phone] with the specifics as well as leave a message on the /dcp [id number] line. P: pt to leave today at 1600 via ambulance for the home setting. Addendum entered by Simi Adams LPN 09/21/19 08:51: See now that Dr. Kinsey has put in a d/c order for today. Will discuss with her shortly in Team Rounds. Original Note: DCP: continued: received a vm this morning left by Court[facility]. She reported that she had not ordered any DME for pt as his did not request any. Called back now and spoke with Hospice weekend coordinator Yue. Explained that pt's Michelle Smith is expecting the hospital bed and overbed table today and yesterday went out to get sheets for the bed. Yue noted that there seemed to be some confusion in the notes she has re this patient. She will research and get back to this dcp assortment planner. Explained that pt was expected to d/c today and that Dr. Kinsey wanted to make sure all DME was in place before pt got home. Yue also said she would look at when the next available open to service date will be. Will be following closely.
--- NOTE | 2019-09-21 11:56 | P.DS_ITS ---
History of Present Illness History of Present Illness Date Patient Seen: 09/16/19 Chief complaint: SOB Narrative: Written by Dr. Zuluaga: The patient is he is an 79-year-old male with a history of interstitial lung disease, pulmonary fibrosis, scleroderma, chronic atrial fibrillation on anticoagulation, chronic kidney disease, who presents to the hospital with increasing shortness of breath. Patient has chronic respiratory failure and usually is 6 L of oxygen at home. Over the past month he has had to increase his oxygen from 6 L to up to 10 L or more with activity. He is also low noticed lower extremity edema which has gotten progressively worse over the past month. He has been sleeping in a recliner and has had some orthopnea. He has not had any chest pain per se or palpitations. He denies any fever chills or cough. The patient has been taking his medications as prescribed which include Lasix for lower extremity edema. Despite that he continues to have increasing swelling and shortness of breath. The patient was seen and evaluated in the emergency room today. Was found to have a proBNP of greater than 5900. Chest x-ray showed interstitial findings. Patient was admitted to the hospital for acute respiratory failure secondary to CHF. Patient reports his baseline weight is around 199-205. He waited in today at about 220. Discharge Providers Provider Date of admission: 09/16/19 14:44 Discharge Date: 09/21/19 Primary care physician: Sergo Marshall MD Consults: 09/16/19 17:35 Consult to Discharge Planning Routine Comment: Consult to Occupational Therapy Evaluate & Treat Comment: Physician Instructions: Evaluate and treat Consult to Physical Therapy Evaluate & Treat Comment: Physician Instructions: Evaluate and Treat Consult to Physician Routine Comment: Consulting Provider: Khushbu Burleson Reason for consultation: Palliative Care consult Has provider been notified: No Discharge provider: Ni Kinsey DO Summary Hospital Course Discharge Diagnosis: 1. Cor pulmonale, acute on chronic, present on admission. Active. 2. Non-sustained ventricular tachycardia and frequent PVCs, present on admission. Stable. 3. Acute on chronic hypoxemic respiratory failure, present on admission. Acute portion resolved. 4. Type 2 myocardial infarction, present on admission. Resolved. 5. Chronic kidney disease stage 3, present on admission. Stable. 6. Scleroderma, chronic, present on admission. Stable. 7. BPH, chronic, present on admission. Stable. 8. Palliative Care. Hospital Course: Donn Funez is an 79-year-old male with a past medical history significant for interstitial lung disease, pulmonary fibrosis, pulmonary hypertension with resultant cor pulmonale, ventricular tachycardia status post AICD, aortic stenosis status post TAVR, scleroderma, and chronic kidney disease stage III who presented to the ED with progressive worsening shortness of breath, fatigue, and generalized weakness. 1. Cor pulmonale, acute on chronic, present on admission. Active. -Secondary to worsening pulmonary hypertension (PASP increased from 58 mmHg in 02/2018 to 110 mmHg 09/17/2019) from progressive interstitial lung disease and idiopathic pulmonary fibrosis. Due to cor pulmonale, RV is moderately enlarged and has moderated reduced systolic function. LV function is normal and TAVR valve is functioning normally. -Continue furosemide 60 mg IV at 0700 and 1700 to help improve patient's sleep (goal to be net negative 1-2 L over 24 hours). Switched to PO furosemide 60 mg twice daily as patient was discharging home with hospice -Continued to monitor strict I&O and daily weights. Net -6 L and weight down from 102 kg to 95 kg. -Continued monitor electrolytes and replete as necessary. Continued potassium chloride 40 mEq increased from once to twice daily. Goal K > 4.0 and Mg > 2.0. 2. Non-sustained ventricular tachycardia and frequent PVCs, present on admission. Stable. -Patient has a history of VT and ACID placement in 2006. Over the past few months, he has required adenosine therapy but no shocks recently. -Echocardiogram demonstrated mild-moderate concentric left ventricular hypertrophy and normal size and normal systolic function with EF 65-70%, RV is moderately dilated and systolic function is moderately reduced, interventricular septum is flattened, consistent with a right ventricular pressure overload condition, bioprosthetic aortic valve that is working well with expected gradient across it (mean 14mmHg). There is mild to moderate perivalvular re gurgitation around the prosthetic aortic valve, moderate to severe tricuspid regurgitation, RVSP is estimated to be at least 110 mmHg based on an estimated right atrial pressure of 8 mm Hg and compared to the Echo done 03/28/2018, severe pulmonary hypertension is present (increase from 58 mmHg to 110 mmHg). -Continue to monitor electrolytes and replete as necessary. Continue potassium chloride 40 mEq increased from once to twice daily. Goal K > 4.0 and Mg > 2.0. -Continued metoprolol succinate decreased from 100 mg to 50 mg daily due to possibility of bronchospasm/constriction and diltiazem 120 mg daily which better controlled heart rate with heart rate 90s to 100s prior to discharge. 3. Acute on chronic hypoxemic respiratory failure, present on admission. Acute portion resolved. -Patient presented requiring 10L or more of supplemental oxygen at rest. His baseline oxygen requirement is 6 L of supplemental oxygen at rest and 10 L with activity. -Multifactorial and secondary to progressive interstitial lung disease and pulmonary fibrosis with secondary pulmonary hypertension and cor pulmonale. -Continued diuresis as above. -Continued the respiratory therapy evaluation and treatment. Continued supplemental oxygen as necessary to maintain oxygen saturations 88-92%. Patient is back to baseline requirement of 6 L supplemental oxygen at rest and 10 L with activity. -Continued home sildenafil 20 mg 3 times daily, prednisone 10 mg daily, oxygen, and mycophenolate a 1000 mg twice daily. -Overall prognosis is grim, therefore, consulted palliative care as below and patient is planning on discharging home with hospice. 4. Type 2 myocardial infarction, present on admission. Resolved. -Initial troponin 0.052 then peaked at 0.690 and trended downward with diuresis 0.436. No need to further trend. -Echocardiogram demonstrated mild-moderate concentric left ventricular hypertrophy and normal size and normal systolic function with EF 65-70%, RV is moderately dilated and systolic function is moderately reduced, interventricular septum is flattened, consistent with a right ventricular pressure overload condition, bioprosthetic aortic valve that is working well with expected gra dient across it (mean 14mmHg). There is mild to moderate perivalvular regurgitation around the prosthetic aortic valve, moderate to severe tricuspid regurgitation, RVSP is estimated to be at least 110 mmHg based on an estimated right atrial pressure of 8 mm Hg and compared to the Echo done 03/28/2018, severe pulmonary hypertension is present (increase from 58 mmHg to 110 mmHg). -Continued metoprolol succinate decreased from 100 mg to 50 mg daily due to possible bronchospasm/constriction and aspirin 81 mg daily. 5. Chronic kidney disease stage 3, present on admission. Stable. -Initial creatinine 1.4. Baseline creatinine 1.4-1.5. Creatinine trended down and improved with diuresis now 1.47. -Continued diuresis as above. -Avoided nephrotoxic agents. -Continued to monitor creatinine daily. 6. Scleroderma, chronic, present on admission. Stable. -Continued home mycophenolate 1000 mg twice daily. 7. BPH, chronic, present on admission. Stable. -Continued home finasteride 5 mg daily and terazosin 5 mg daily at bedtime. 8. Palliative Care. -Consulted Khushbu WITT who established goals of care and filled out POLST form and may see separate note for further details. Patient discharged home with equipment delivered and hospice to open on Monday09/23/2019. -Continued Workman catheter for comfort. -Discharged home with comfort medications including antiemetics, antisecretory,pain medications including morphine concentrate, anxiolytic with lorazepam concentrate, and bowel regimen. He instructed patient he may continue his home medications for now and may discontinue at any. Exam Vital Signs (past 8 hours): - 09/21/19 05:34 09/21/19 07:34 Temperature 97.8 F 97.6 F Pulse Rate 94 H 120 H Respiratory Rate 34 H 34 H Blood Pressure 97/60 107/59 L Pulse Oximetry 96 93 Fraction of Inspired Oxygen 30 Oxygen Delivery Method BiPAP Oxygen Flow Rate 7 Narrative Exam Narrative: General: Elderly gentleman resting in bed and in no acute distress, well- developed, well-nourished, mildly anxious otherwise appropriately interactive. HEENT: Normocephalic, atraumatic. External ears without defect. Pupils equal, round, and reactive to light. Anicteric sclerae, moist conjunctivae, and no lid lag. Oropharynx free of erythema and cobble stoning with moist mucosa. Neck: Supple with full range of motion. No jugular venous distension. No lymphadenopathy or thyromegaly. Cardiovascular: Regular rhythm, tachycardic, with holosystolic murmur at LSB +3/6. No rubs or gallops appreciated. Pulmonary: Diminished throughout with bibasilar crackles. No wheezes or rhonchi. Mild tachypnea with use of accessory muscles. Abdomen: Soft, obese, bowel sounds present, nontender, nondistended. No hepatosplenomegaly or masses appreciated. Extremities: No clubbing or cyanosis. Mild dependent pitting edema to hips bilaterally improved. Skin: Normal temperature, turgor, and texture; no rash, ulcers, or subcutaneous nodules appreciated. Neurological: Cranial nerves grossly intact. Generalized weakness without focal deficit. Psychiatric: Mildly depressed and anxious mood and affect. Alert and oriented to person, place, and time. Objective Labs Result Diagrams: 09/19/19 04:30 09/21/19 05:28 Labs: Laboratory Results - last 24 hr 09/21/19 05:28 Sodium 136 L Potassium 3.5 Chloride 100 Carbon Dioxide 28 BUN 39 H Creatinine 1.47 H Estimated GFR 46.1 L BUN/Creatinine Ratio 26.5 H Glucose 95 Calcium 9.5 Magnesium 2.3 Discharge Plan Discharge Plan Patient Disposition: Hospice - Home Discharge comment: You are being discharged home with hospice to open as soon as available for end of life care. You have been prescribed several comfort care medications for end of life care: Nausea * Ondansetron Pain ------- * Morphine * Tylenol * Lidocaine patch * Muscle relaxer (methocarbamol or cyclobenzaprine) Anxiety * Lorazepam Constipation * Bisacodyl (suppository) * Senokot (stimulant laxative) * MiraLax (mild laxative) * Colace (stool softener) Secretions * Scopolamine patch Discharge orders & Medications Prescriptions: New acetaminophen 325 mg Tablet 650 mg PO Q6HR PRN (Reason: Fever/Mild Pain (1-3)) Qty: 30 RF: 0 bisacodyl 10 mg Suppository 10 mg ND DAILY PRN (Reason: Constipation) Qty: 10 RF: 0 lidocaine 5 % Adhesive Patch,Medicated 2 ea topical DAILY Qty: 10 RF: 0 docusate sodium [DOK] 100 mg Capsule 100 mg PO BID Qty: 60 RF: 0 diltiazem HCl 120 mg Capsule,Extended Release 24hr 120 mg PO DAILY Qty: 30 RF: 0 lorazepam 2 mg/mL concentrate 0.5 mg PO Q6H PRN (Reason: anxiety or agitation) Qty: 30 RF: 0 sennosides [senna] 8.6 mg Tablet 17.2 mg PO BEDTIME Qty: 30 RF: 0 polyethylene glycol 3350 17 gram Powder In Packet 17 gm PO DAILY Qty: 30 RF: 0 ondansetron HCl [Zofran] 4 mg tablet 4 mg PO Q8H PRN (Reason: nausea and vomiting) Qty: 20 RF: 0 scopolamine base 1 mg over 3 days patch 3 day 1 patch transdermal Q3D PRN (Reason: Excessive secretions) Qty: 10 RF: 0 metoprolol succinate 50 mg Tablet Extended Release 24 Hr 50 mg PO DAILY Qty: 30 RF: 0 morphine 20 mg/5 mL (4 mg/mL) solution 20 mg PO Q6H PRN (Reason: pain and air hunger) Qty: 100 RF: 0 Continued sildenafil (pulm.hypertension) [Revatio] 20 MG tablet 20 mg PO TID Qty: 0 RF: 0 calcium carbonate-vitamin D3 [Calcium 600 with Vitamin D3] 600 MG/200 IU capsule 1 cap PO QDAY Qty: 0 RF: 0 multivitamin [Multiple Vitamins] 1 EACH tablet 1 tab PO QDAY Qty: 0 RF: 0 finasteride 5 MG tablet 5 mg PO QDAY Qty: 0 RF: 0 terazosin 5 MG capsule 5 mg PO HS Qty: 0 RF: 0 prednisone 10 MG tablet 10 mg PO AMCC Qty: 0 RF: 0 mycophenolate mofetil 500 mg tablet 1,000 mg PO BID RF: 0 methocarbamol 750 mg tablet 750 mg PO PRN PRN (Reason: Pain (Scale Score 1-3)) RF: 0 acetaminophen 325 mg Capsule 650 mg PO Q6H RF: 0 Changed furosemide 40 MG tablet 60 mg PO BID Qty: 60 RF: 0 potassium chloride 20 MEQ tablet,ER particles/crystals 40 meq PO BIDCC Qty: 0 RF: 0 Discontinued [SULFAMETHOXAZOLE] 1 tab PO 3XW Qty: 0 RF: 0 metoprolol succinate 100 mg tablet extended release 24 hr 100 mg PO BID RF: 0 Follow up/Referrals: Sergo Marshall MD [Primary Care Provider] - Diet/Activity/Treatments Diet: Diet as Tolerated and Low-sodium Activity: Bed rest Catheter: 2-way Workman Oxygen: Continue 6-10 L of supplemental oxygen as necessary for comfort Visit Report/Discharge Packet Instructions: How to Care for Your Workman Catheter -- Male, End of Life Care Visit Report Forms: Patient Portal/API, Stroke Signs & Symptoms Discharge Data Primary Care Provider: Sergo Marshall Discharges patient from system. Discharge Date/Time: 09/21/19 15:51 Quality VTE Deep Vein Thrombosis/Pulmonary Embolism Present on Admission: No
--- NOTE | 2019-09-21 12:38 | PC.NURSE ---
Am shift Pt is A/o x3, reporting pelvic pain. Assessment of Beckford has large clot in beckford, obstructing flow of urine. Irrigation done, and immediate flow of 750mls of urine. Monitoring patient output. Reports substantial improvement to pain. Drinking ensure in place of meal this AM. arrived and reviewed Hospice medications. Lengthy review about PRNs and what each is used for. As well as what to expect in the coming days. Rx sent to [facility] in [place]. Reassured of support if needed, and provided ICU and Main nursing station contact numbers. Reviewed beckford care and plan. left to meet DME delivery at home. Pt plans to dc BLS @ 1600. All home meds and plan reviewed with patient as well as answered questions prior to leaving. After left, DM notified this RN that Hospice will be out 10-11 am Friday 09/22 to open to services. Updated Pt. Pending BLS transfer home @ 1600. Plan to medicate Pt prior to transfer.
[2019-09-21 12:50] VITALS: BP 104/59; PULSE 94; RESP 38; TEMP 36.3; O2SAT 93
[2019-09-21] MEDS: ASPIRIN EC 81 MG TABLET PO (13:21)
[2019-09-21] MEDS: POTASSIUM CHLORIDE 20 MEQ TAB 40 MEQ PO (13:21)
[2019-09-21] MEDS: CALCIUM CARB/VIT D3 500/200 TABLET 1 EACH PO (13:25)
[2019-09-21] MEDS: dilTIAZem CD 120 MG CAP PO (13:26)
[2019-09-21] MEDS: DOCUSATE 100 MG CAPSULE PO (13:29)
[2019-09-21] MEDS: HEPARIN 5,000 UNIT/ML VIAL 5000 UNIT SUBCUT (13:30)
[2019-09-21] MEDS: MULTIVITAMIN 1 TABLET 1 TAB PO (13:44)
[2019-09-21] MEDS: METOPROLOL ER 50 MG TABLET PO (13:44)
[2019-09-21] MEDS: polyethylene glycoL 3350 17 GM POWD.PACK PO (13:44)
[2019-09-21] MEDS: SILDENAFIL 20 MG TABLET PO (13:45)
[2019-09-21] MEDS: predniSONE 10 MG TABLET PO (13:45)
[2019-09-21] MEDS: MYCOPHENOLATE MOFETIL 500 MG TABLET 1000 MG PO (13:45)
[2019-09-21] MEDS: TERAZOSIN 5 MG CAPSULE PO (13:46)
[2019-09-21] MEDS: MORPHINE 2 MG/ML INJ 1 MG IV (14:56)
[2019-09-21] MEDS: LORazepam 0.5 MG TABLET PO (14:56)
== END 2019-09-21 15:51 | disposition hospice, home (50) | DRG 280 ==
LOC: ED 14:34 → AC 14:45 → ICU 16:34
PROVIDERS: Internal Medicine; Admitting Provider Internal Medicine; Emergency Provider Emergency Medicine; Family Provider Internal Medicine Cardiovascular Disease; PCP Internal Medicine; Referring Provider Emergency Medicine; Visit Provider Internal Medicine
DX: I27.81 Cor pulmonale (chronic) (principal); J96.21 Acute and chronic respiratory failure with hypoxia; I21.A1 Myocardial infarction type 2; I48.20 Chronic atrial fibrillation, unspecified; M34.81 Systemic sclerosis with lung involvement; L97.421 Non-pressure chronic ulcer of left heel and midfoot limited to breakdown of skin; L97.411 Non-pressure chronic ulcer of right heel and midfoot limited to breakdown of skin; I47.2 Ventricular tachycardia; J84.17 Other interstitial pulmonary diseases with fibrosis in diseases classified elsewhere; Z99.81 Dependence on supplemental oxygen; N18.3 Chronic kidney disease, stage 3 (moderate); I12.9 Hypertensive chronic kidney disease with stage 1 through stage 4 chronic kidney disease, or unspecified chronic kidney disease; I49.3 Ventricular premature depolarization; Z95.810 Presence of automatic (implantable) cardiac defibrillator; Z87.891 Personal history of nicotine dependence; N40.0 Benign prostatic hyperplasia without lower urinary tract symptoms; Z95.2 Presence of prosthetic heart valve; Z51.5 Encounter for palliative care
CPT/HCPCS: 36415; 36600; 71045; 80048; 80053; 81001; 82550; 82805; 83605; 83735; 83880; 84484; 85025; 87635; 87797; 93005; 93306; 94150; 94660; 94762; 96374; 97110; 97163; 97165; 97530; 99232; 99284; 99291; 99497; J1644; J1940; J2270

== ENCOUNTER 2019-09-22 22:46 | Emergency (ER) | payer MEDICARE, SELFPAY ==
[2019-09-16 15:15] VITALS: BMI 31.8
[2019-09-17 04:50] VITALS: PULSE 81; RESP 21; O2SAT 99
[2019-09-22 22:46] VITALS: BP 118/64; PULSE 91; RESP 24; TEMP 36.4; O2SAT 100; BMI 30.1
[2019-09-22 22:55] VITALS: PULSE 88; O2SAT 100
[2019-09-22 23:00] VITALS: BP 110/64; PULSE 90; O2SAT 100
--- NOTE | 2019-09-22 23:27 | ED.GENADULT ---
HPI - General Adult General Chief complaint: Urogenital-Male Stated complaint: Blocked Workman Time Seen by Provider: 09/22/19 23:06 Source: patient Mode of arrival: EMS Limitations: no limitations History of Present Illness HPI narrative: 79-year-old male. DNR/DNI. His on hospice for chronic respiratory issues. Was just recently discharged from our facility after an inpatient stay. He had a Workman placed during that time for comfort secondary to his inability to stand and the fact that he was started on Lasix. He comes to the emergency department today because of a clogged Workman and lower abdominal pain. Related Data Home Medications Medication Instructions Recorded Confirmed sildenafil (pulm.hypertension) 20 mg PO TID #0 11/14/16 09/16/19 [Revatio] calcium carbonate-vitamin D3 1 cap PO QDAY #0 02/22/17 09/16/19 [Calcium 600 with Vitamin D3] finasteride 5 mg PO QDAY #0 02/22/17 09/16/19 multivitamin [Multiple Vitamins] 1 tab PO QDAY #0 02/22/17 09/16/19 terazosin 5 mg PO HS #0 02/23/17 09/16/19 prednisone 10 mg PO AMCC #0 05/19/17 09/16/19 acetaminophen 650 mg PO Q6H 09/16/19 09/16/19 methocarbamol 750 mg PO PRN PRN 09/16/19 09/16/19 mycophenolate mofetil 1,000 mg PO BID 09/16/19 09/16/19 Previous Rx's Medication Instructions Recorded acetaminophen 650 mg PO Q6HR PRN #30 tab 09/21/19 bisacodyl 10 mg DE DAILY PRN #10 ea 09/21/19 diltiazem HCl 120 mg PO DAILY #30 cap 09/21/19 docusate sodium [DOK] 100 mg PO BID #60 cap 09/21/19 furosemide 60 mg PO BID #60 tab 09/21/19 lidocaine 2 ea TOPICAL DAILY #10 ea 09/21/19 lorazepam 0.5 mg PO Q6H PRN #30 ml 09/21/19 metoprolol succinate 50 mg PO DAILY #30 tab 09/21/19 morphine 20 mg PO Q6H PRN #100 ml 09/21/19 ondansetron HCl [Zofran] 4 mg PO Q8H PRN #20 tab 09/21/19 polyethylene glycol 3350 17 gm PO DAILY #30 ea 09/21/19 potassium chloride 40 meq PO BIDCC #0 tab 09/21/19 scopolamine base 1 patch TRANSDERMAL Q3D PRN #10 09/21/19 each sennosides [senna] 17.2 mg PO BEDTIME #30 tab 09/21/19 Allergies Allergy/AdvReac Type Severity Reaction Status Date / Time codeine [CODEINE] Allergy Unknown Verified 09/16/19 12:32 Review of Systems Constitutional Constitutional: Denies fever(s) Gastrointestinal Gastrointestinal: Reports abdominal pain Genitourinary Comments: No drainage from his Workman Integumentary/Breasts Skin/Breast: Denies rash Patient History Medical History Anemia (Acute) Chronic kidney failure (Acute) History of atrial fibrillation (Acute) History of scleroderma (Acute) Hypertension (Acute) ILD (interstitial lung disease) (Acute) Non-STEMI (non-ST elevated myocardial infarction) (Acute) Pulmonary fibrosis (Acute) Valvular heart disease (Acute) Surgical History AICD (automatic cardioverter/defibrillator) present (Acute) Aortic valve replaced (Acute) History of appendectomy (Acute) History of bladder surgery (Acute) History of cholecystectomy (Acute) History of esophagogastroduodenoscopy (EGD) (Acute) History of lung biopsy (Acute) Family History Father Acute renal failure Brother Cardiac disease Sister Stroke Social History household members: spouse Smoking Status: Former smoker Smoking Status: Former smoker alcohol intake frequency: 0-2 drinks per day Substance Use Type: does not use Exam Initial Vital Signs Initial Vital Signs: Vital Signs Temperature 97.5 F L 09/22/19 22:46 Pulse Rate 91 H 09/22/19 22:46 Respiratory Rate 24 09/22/19 22:46 Blood Pressure 118/64 09/22/19 22:46 Pulse Oximetry 100 09/22/19 22:46 Const General: cooperative and comfortable HENMT Head: normal to inspection GI Palpation: soft (After Workman replacement) Other: Workman catheter in place Extrem General: capillary refill normal Course Orders Ordered: Discontinued Medications Lidocaine HCl (Urojet) 5 ml TOP NOW ONE Stop: 09/22/19 23:08 Last Admin: 09/22/19 23:15 Dose: 5 ml Documented by: SLADE Vital Signs Vital signs: Vital Signs - 8 hr 09/23/19 00:00 Pulse Rate 78 Blood Pressure 90/61 Pulse Oximetry 97 Medical Decision Making MDM Narrative Medical decision making narrative: Replace the patient's Workman and flushed the catheter. Did have return of blood clots and approximately 1 L of urine. Patient states that he feels much better afterwards. We will hold on any antibiotics for testing for now. He was given return precautions. Expressed understanding and agreement. Discharge Plan Departure Patient Disposition: Home Clinical Impression: Workman catheter problem Qualifiers: Encounter type: initial encounter Qualified Code(s): T83.9XXA - Unspecified complication of genitourinary prosthetic device, implant and graft, initial encounter Discharge Date/Time: 09/23/19 00:15 Instructions: How to Care for Your Workman Catheter -- Male Activity Restrictions/Additional Instructions: Continue all of your medications as directed. Return to the emergency department for any new or worsening symptoms Prescriptions: No Action sildenafil (pulm.hypertension) [Revatio] 20 MG tablet 20 mg PO TID Qty: 0 RF: 0 calcium carbonate-vitamin D3 [Calcium 600 with Vitamin D3] 600 MG/200 IU capsule 1 cap PO QDAY Qty: 0 RF: 0 multivitamin [Multiple Vitamins] 1 EACH tablet 1 tab PO QDAY Qty: 0 RF: 0 finasteride 5 MG tablet 5 mg PO QDAY Qty: 0 RF: 0 terazosin 5 MG capsule 5 mg PO HS Qty: 0 RF: 0 prednisone 10 MG tablet 10 mg PO AMCC Qty: 0 RF: 0 mycophenolate mofetil 500 mg tablet 1,000 mg PO BID RF: 0 methocarbamol 750 mg tablet 750 mg PO PRN PRN (Reason: Pain (Scale Score 1-3)) RF: 0 acetaminophen 325 mg Capsule 650 mg PO Q6H RF: 0 acetaminophen 325 mg Tablet 650 mg PO Q6HR PRN (Reason: Fever/Mild Pain (1-3)) Qty: 30 RF: 0 bisacodyl 10 mg Suppository 10 mg DE DAILY PRN (Reason: Constipation) Qty: 10 RF: 0 lidocaine 5 % Adhesive Patch,Medicated 2 ea topical DAILY Qty: 10 RF: 0 docusate sodium [DOK] 100 mg Capsule 100 mg PO BID Qty: 60 RF: 0 diltiazem HCl 120 mg Capsule,Extended Release 24hr 120 mg PO DAILY Qty: 30 RF: 0 lorazepam 2 mg/mL concentrate 0.5 mg PO Q6H PRN (Reason: anxiety or agitation) Qty: 30 RF: 0 sennosides [senna] 8.6 mg Tablet 17.2 mg PO BEDTIME Qty: 30 RF: 0 polyethylene glycol 3350 17 gram Powder In Packet 17 gm PO DAILY Qty: 30 RF: 0 ondansetron HCl [Zofran] 4 mg tablet 4 mg PO Q8H PRN (Reason: nausea and vomiting) Qty: 20 RF: 0 furosemide 40 MG tablet 60 mg PO BID Qty: 60 RF: 0 potassium chloride 20 MEQ tablet,ER particles/crystals 40 meq PO BIDCC Qty: 0 RF: 0 scopolamine base 1 mg over 3 days patch 3 day 1 patch transdermal Q3D PRN (Reason: Excessive secretions) Qty: 10 RF: 0 metoprolol succinate 50 mg Tablet Extended Release 24 Hr 50 mg PO DAILY Qty: 30 RF: 0 morphine 20 mg/5 mL (4 mg/mL) solution 20 mg PO Q6H PRN (Reason: pain and air hunger) Qty: 100 RF: 0 Referrals: Sergo Marshall MD [Primary Care Provider] -
[2019-09-22 23:30] VITALS: BP 95/61; PULSE 79; O2SAT 100
--- NOTE | 2019-09-22 23:38 | PC.NURSE ---
Pt comes in reporting beckford not draining. Bladder scan >999ml. New beckford placed, 1050ml out.
[2019-09-22] MEDS: LIDOCAINE 2% (UROJET) 5 ML GEL TOP (23:41)
[2019-09-23] VITALS: BP 90/61; PULSE 78; O2SAT 97
== END 2019-09-23 00:15 | disposition home or self-care (01) ==
PROVIDERS: Emergency Provider Emergency Medicine; Family Provider Internal Medicine Cardiovascular Disease; PCP Internal Medicine
DX: T83.9XXA Unspecified complication of genitourinary prosthetic device, implant and graft, initial encounter (principal)
CPT/HCPCS: 51798; 99283